=== PATIENT | female | born 1975 | race Caucasian/White ===

== ENCOUNTER 2018-10-20 22:57 | Emergency (ER) | payer OTHER ==
[2018-10-20 23:11] VITALS: TEMP 97.9
[2018-10-21] MEDS ORDERED: KETOROLAC 30 MG/ML 1 ML VIAL IM STA (00:13)
[2018-10-21] MEDS ORDERED: LIDOCAINE 1% INJ 10MG/ML (20 ML MDV) SQ ONE (00:13)
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
--- NOTE | 2018-10-21 00:57 | CT ---
EXAMINATION TYPE: CT brain aurelia wo con DATE OF EXAM: 10/21/2018 COMPARISON: None HISTORY: neck laceration CT DLP: 853.2 mGycm Automated exposure control for dose reduction was used. TECHNIQUE: CT scan of the head and cervical spine are performed without contrast. FINDINGS: Ventricles and sulci appear normal. There is no mass effect nor midline shift. There is n o sign of intracranial hemorrhage. The calvarium is intact. There is mucosal thickening and fluid lev els in the maxillary sinuses and ethmoid sinuses. There is degenerative disc space narrowing at C6-7 with spur formation. Posterior elements are intact . There is spurring of the endplates. The skull base is intact. IMPRESSION: Negative CT scan of the brain. Ethmoid and maxillary sinusitis. Spondylosis at C6-7. No fracture seen.
--- NOTE | 2018-10-21 00:59 | XR ---
EXAMINATION TYPE: XR hand complete RT DATE OF EXAM: 10/21/2018 COMPARISON: NONE HISTORY: Little finger pain from punching a wall TECHNIQUE: 3 views FINDINGS: Metacarpals appear intact. I see no fracture nor dislocation. The little finger appears int act. Carpal bones are intact. IMPRESSION: Negative right hand exam.
[2018-10-21] MEDS ORDERED: AMOXIC-POT CLAV 875MG STARTER 2 EACH TABLET PO STA (01:39)
[2018-10-21 01:53] VITALS: BP 103/67; PULSE 86; RESP 16
== END 2018-10-21 01:52 | disposition home or self-care (01) ==
LOC: EC 22:57
DX: S61.216A Laceration without foreign body of right little finger without damage to nail, initial encounter (principal); S00.83XA Contusion of other part of head, initial encounter; F10.129 Alcohol abuse with intoxication, unspecified; S00.03XA Contusion of scalp, initial encounter; J32.0 Chronic maxillary sinusitis; J32.2 Chronic ethmoidal sinusitis; S10.91XA Abrasion of unspecified part of neck, initial encounter; M47.812 Spondylosis without myelopathy or radiculopathy, cervical region; W22.01XA Walked into wall, initial encounter; Y93.89 Activity, other specified; W22.8XXA Striking against or struck by other objects, initial encounter; W17.89XA Other fall from one level to another, initial encounter; Y92.096 Garden or yard of other non-institutional residence as the place of occurrence of the external cause
CPT/HCPCS: 73130; 72125; 70450; 99283; 96372; J2001; J1885

== ENCOUNTER 2022-07-07 16:15 | Emergency (ER) | payer BC ==
[2022-07-07 16:21] VITALS: BP 117/84; PULSE 105; RESP 18; TEMP 98.2
[2022-07-07] MEDS ORDERED: SODIUM CHLORIDE 0.9% 1,000 ML IV STA (16:21)
[2022-07-07] MEDS ORDERED: PANTOPRAZOLE 40 MG/10 ML VIAL IVP STA (16:22)
--- NOTE | 2022-07-07 16:32 | ED ---
GI Bleed HPI - General Chief complaint: GI Bleed Stated complaint: possible GI bleed Time Seen by Provider: 07/07/22 16:16 Source: patient, RN notes reviewed Mode of arrival: EMS Limitations: no limitations - History of Present Illness Initial comments: This is a pleasant 47-year-old female with a history of gastric ulcer which was diagnosed about 20 years ago. Patient also has an umbilical hernia. Patient has a history of high cholesterol and hypertension as well. However none of these disorders are treated as the patient has not seen a physician about 15 years. Patient presents today after having some dark stools yesterday and then having some coffee-ground emesis a few times since yesterday. Patient vomited today and is having some discomfort in her epigastrium. Patient also became lightheaded and nearly passed out after vomiting. Patient denying any chest pain or shortness of breath. Patient denies any fever or chills. Only complaining of minimal pain in the epigastric area at this time. Patient does admit to frequently taking NSAIDs [id number] No headache, no fever or chills, no changes in vision or hearing, no sore throat or difficulty with speech, no neck pain, no chest pain or shortness of breath, no changes in urination or bowel movements, no numbness or tingling, no extremity pain, no skin rashes or lesions. Past medical, surgical, social, and family history reviewed. MD complaint: coffee ground emesis, melena - Related Data Previous Rx's Medication Instructions Recorded Magnesium Oxide [Mag-Ox] 400 mg PO DAILY #30 tablet 07/07/22 Omeprazole [PriLOSEC] 20 mg PO DAILY #30 cap 07/07/22 Allergies Allergy/AdvReac Type Severity Reaction Status Date / Time No Known Allergies Allergy Verified 07/07/22 17:19 Review of Systems ROS Statement: Those systems with pertinent positive or pertinent negative responses have been documented in the HPI. ROS Other: All systems not noted in ROS Statement are negative. Past Medical History Past Medical History: Hyperlipidemia, Hypertension History of Any Multi-Drug Resistant Organisms: None Reported Past Surgical History: No Surgical Hx Reported Past Psychological History: ADD/ADHD, Anxiety Smoking Status: Current every day smoker Past Alcohol Use History: Occasional Past Drug Use History: Marijuana General Exam - General Exam Comments Initial Comments: Auto signs reviewed, patient does not appear to be ill or toxic. Appears to be adequately perfused. Capillary refill is normal. No mottling. Limitations: no limitations General appearance: alert, in no apparent distress Head exam: Present: atraumatic, normocephalic, normal inspection Eye exam: Present: normal appearance, PERRL, EOMI. Absent: scleral icterus, conjunctival injection, periorbital swelling ENT exam: Present: normal exam, mucous membranes moist, normal external ear exam. Absent: mucous membranes dry Neck exam: Present: normal inspection, full ROM. Absent: tenderness, me ningismus, lymphadenopathy Respiratory exam: Present: normal lung sounds bilaterally. Absent: respiratory distress, wheezes, rales, rhonchi, stridor, chest wall tenderness, accessory muscle use Cardiovascular Exam: Present: regular rate, normal rhythm, normal heart sounds. Absent: systolic murmur, diastolic murmur, rubs, gallop, clicks GI/Abdominal exam: Present: soft, tenderness (Minimal tenderness in the epigastrium and left upper quadrant area.), normal bowel sounds. Absent: distended, guarding, rebound, rigid Extremities exam: Present: normal inspection, full ROM, normal capillary refill. Absent: tenderness, pedal edema, joint swelling, calf tenderness Back exam: Present: normal inspection Neurological exam: Present: alert, oriented X3, CN II-XII intact Psychiatric exam: Present: normal affect, normal mood Skin exam: Present: warm, dry, intact, normal color. Absent: rash Course Vital Signs 07/07/22 16:16 Temperature 98.2 F Pulse Rate 105 H Respiratory 18 Rate Blood Pressure 117/84 O2 Sat by Pulse 95 Oximetry - Reevaluation(s) Reevaluation #1: 07/07/22 19:51 Medical record is reviewed Symptoms are improved here in the emergency department Patient is informed of results and questions answered Patient in no distress At this point we are still waiting on the CMP. Medical Decision Making - Medical Decision Making Given the patient's present symptomology. Peptic ulcer disease is probable. Other etiologies such as pancreatitis, inflammatory versus infectious etiologies are less likely. Does not appear to be consistent with cardiopulmonary disease. However the patient did have a near syncopal episode after vomiting. Will order an EKG and a troponin. Plan for reevaluation. Protonix ordered. Hemoccult sent. Due to the laboratory taking so long, patient wanted to leave before the CMP was obtained. I did discuss risks for his benefits with the patient. Patient is of sound mind, is alert and oriented 4 and able make her own medical decisions. Given the patient's well appearance and think this is low risk. I will monitor the results and call the patient if necessary. The case was discussed in detail with ED attending physician. Presentation, findings, treatment plan discussed in detail. Solo Musician Dr. Rizo Patient call in the form about her abnormal liver function tests. Patient told to follow up with gastroenterology without fail. Patient was told to avoid acetaminophen. Patient voiced understanding. - Lab Data Result diagrams: 07/07/22 17:13 07/07/22 17:13 Lab Results 07/07/22 07/07/22 07/07/22 Range/Units 16:27 17:13 17:13 WBC 9.8 (3.8-10.6) k/uL RBC 4.34 (3.80-5.40) m/uL Hgb 13.1 (11.4-16.0) gm/dL Hct 40.7 (34.0-46.0) % MCV 93.7 (80.0-100.0) fL MCH 30.1 (25.0-35.0) pg MCHC 32.2 (31.0-37.0) g/dL RDW 15.2 (11.5-15.5) % Plt Count 313 (150-450) k/uL MPV 8.2 PT 11.0 (9.0-12.0) sec INR 1.0 (<1.2) APTT 22.3 (22.0-30.0) sec Sodium (137-145) mmol/L Potassium (3.5-5.1) mmol/L Chloride (98-107) mmol/L Carbon Dioxide (22-30) mmol/L Anion Gap mmol/L BUN (7-17) mg/dL Creatinine (0.52-1.04) mg/dL Est GFR (CKD-EPI)AfAm (>60 ml/min/1.73 sqM) Est GFR (CKD-EPI)NonAf (>60 ml/min/1.73 sqM) Glucose (74-99) mg/dL Calcium (8.4-10.2) mg/dL Magnesium (1.6-2.3) mg/dL Total Bilirubin (0.2-1.3) mg/dL AST (14-36) U/L ALT (4-34) U/L Alkaline Phosphatase (38-126) U/L Troponin I (0.000-0.034) ng/mL Total Protein (6.3-8.2) g/dL Albumin (3.5-5.0) g/dL Lipase (23-300) U/L Urine HCG, Qual (Not Detectd) Stool Occult Blood Negative (Negative) Blood Type Blood Type Recheck Bld Type Recheck Status Antibody Screen Spec Expiration Date 07/07/22 07/07/22 07/07/22 Range/Units 17:13 17:13 17:13 WBC (3.8-10.6) k/uL RBC (3.80-5.40) m/uL Hgb (11.4-16.0) gm/dL Hct (34.0-46.0) % MCV (80.0-100.0) fL MCH (25.0-35.0) pg MCHC (31.0-37.0) g/dL RDW (11.5-15.5) % Plt Count (150-450) k/uL MPV PT (9.0-12.0) sec INR (<1.2) APTT (22.0-30.0) sec Sodium 144 (137-145) mmol/L Potassium 4.3 (3.5-5.1) mmol/L Chloride 112 H (98-107) mmol/L Carbon Dioxide 25 (22-30) mmol/L Anion Gap 7 mmol/L BUN 13 (7-17) mg/dL Creatinine 0.57 (0.52-1.04) mg/dL Est GFR (CKD-EPI)AfAm >90 (>60 ml/min/1.73 sqM) Est GFR (CKD-EPI)NonAf >90 (>60 ml/min/1.73 sqM) Glucose 81 (74-99) mg/dL Calcium 8.1 L (8.4-10.2) mg/dL Magnesium (1.6-2.3) mg/dL Total Bilirubin 0.3 (0.2-1.3) mg/dL AST 188 H (14-36) U/L ALT 281 H (4-34) U/L Alkaline Phosphatase 110 (38-126) U/L Troponin I <0.012 (0.000-0.034) ng/mL Total Protein 6.8 (6.3-8.2) g/dL Albumin 3.4 L (3.5-5.0) g/dL Lipase 154 (23-300) U/L Urine HCG, Qual (Not Detectd) Stool Occult Blood (Negative) Blood Type B Positive Blood Type Recheck B Pos Bld Type Recheck Status No Antibody Screen NEGATIVE Spec Expiration Date 07/10/2022 - 231207/07/22 07/07/22 Range/Units 17:13 17:39 WBC (3.8-10.6) k/uL RBC (3.80-5.40) m/uL Hgb (11.4-16.0) gm/dL Hct (34.0-46.0) % MCV (80.0-100.0) fL MCH (25.0-35.0) pg MCHC (31.0-37.0) g/dL RDW (11.5-15.5) % Plt Count (150-450) k/uL MPV PT (9.0-12.0) sec INR (<1.2) APTT (22.0-30.0) sec Sodium (137-145) mmol/L Potassium (3.5-5.1) mmol/L Chloride (98-107) mmol/L Carbon Dioxide (22-30) mmol/L Anion Gap mmol/L BUN (7-17) mg/dL Creatinine (0.52-1.04) mg/dL Est GFR (CKD-EPI)AfAm (>60 ml/min/1.73 sqM) Est GFR (CKD-EPI)NonAf (>60 ml/min/1.73 sqM) Glucose (74-99) mg/dL Calcium (8.4-10.2) mg/dL Magnesium 2.0 (1.6-2.3) mg/dL Total Bilirubin (0.2-1.3) mg/dL AST (14-36) U/L ALT (4-34) U/L Alkaline Phosphatase (38-126) U/L Troponin I (0.000-0.034) ng/mL Total Protein (6.3-8.2) g/dL Albumin (3.5-5.0) g/dL Lipase (23-300) U/L Urine HCG, Qual Not Detected (Not Detectd) Stool Occult Blood (Negative) Blood Type Blood Type Recheck Bld Type Recheck Status Antibody Screen Spec Expiration Date - EKG Data EKG Comments: EKG done at 1650 water read by the ED attending physician reveals a rate of 78. Normal intervals aside from the QTC which is [address] or T-wave changes. Normal axis. Normal QRS morphology. Disposition Clinical Impression: Acute gastritis with bleeding Disposition: HOME SELF-CARE Condition: Good Instructions (If sedation given, give patient instructions): Gastritis (ED) Additional Instructions: Follow-up with your regular physician as directed. Return to the ER immediately if any symptoms worsen, new symptoms arise, or any other problems develop. Refrain from using any [id number] nonsteroidal anti-inflammatory medication such as Motrin, ibuprofen, Aleve, naproxen. You can use [id number]-[id number] Tylenol as needed for pain control. Make a follow-up appointment with the flight data technician as discussed Prescriptions: Magnesium Oxide [Mag-Ox] 400 mg PO DAILY #30 tablet Omeprazole [PriLOSEC] 20 mg PO DAILY #30 cap Is patient prescribed a controlled substance at d/c from ED?: No Referrals: Joanna Forte MD [STAFF PHYSICIAN] - 07/12/22
[2022-07-07] MEDS ORDERED: ONDANSETRON 4 MG/2 ML VIAL IVP STA (17:25)
[2022-07-07] MEDS ORDERED: MORPHINE SULFATE 4 MG/ML SYRINGE IV STA (17:25)
[2022-07-07] MEDS ORDERED: MAGNESIUM SULFATE-D5W PMX 1 GM in DEXTROSE/WATER 1 100ML.BAG IVPB ONE (17:30)
[2022-07-07] MEDS ORDERED: HYDROmorphone 1 MG/ML 1 ML SYRINGE IVP STA (18:22)
[2022-07-07 18:31] LABS: HCT 40.7 % (34.0-46.0); HGB 13.1 gm/dL (11.4-16.0); MCH 30.1 pg (25.0-35.0); MCHC 32.2 g/dL (31.0-37.0); MCV 93.7 fL (80.0-100.0); Mean Platelet Volume 8.2; Platelet Count 313 k/uL (150-450); RBC 4.34 m/uL (3.80-5.40); RDW 15.2 % (11.5-15.5); WBC 9.8 k/uL (3.8-10.6)
[2022-07-07 18:33] LABS: Partial Thromboplastin Time 22.3 sec (22.0-30.0)
--- NOTE | 2022-07-07 18:44 | XR ---
EXAMINATION TYPE: XR abdomen acute w cxr DATE OF EXAM: 07/07/2022 COMPARISON: NONE HISTORY: Epigastric pain TECHNIQUE: 4 views FINDINGS: Heart and mediastinum are normal. Lungs are clear. Diaphragm is normal. Bony thorax is inta ct. There is normal bowel gas pattern. No sign of intestinal obstruction or pneumoperitoneum. Fecal patte rn is normal. IMPRESSION: Normal chest. Nonacute abdomen.
[2022-07-07 20:04] LABS: ALT 281 U/L (4-34); African American GFR (CKD) >90 (>60 ml/min/1.73 sqM); Albumin 3.4 g/dL (3.5-5.0); Anion Gap 7 mmol/L; Blood Urea Nitrogen 13 mg/dL (7-17); Calcium 8.1 mg/dL (8.4-10.2); Carbon Dioxide 25 mmol/L (22-30); Chloride 112 mmol/L (98-107); Glucose 81 mg/dL (74-99); Lipase 154 U/L (23-300); Non-African American GFR(CKD) >90 (>60 ml/min/1.73 sqM); Sodium 144 mmol/L (137-145); Total Bilirubin 0.3 mg/dL (0.2-1.3); Total Protein 6.8 g/dL (6.3-8.2)
[2022-07-07 20:25] LABS: AST 188 U/L (14-36); Alkaline Phosphatase 110 U/L (38-126); Potassium 4.3 mmol/L (3.5-5.1)
[2022-07-07 21:51] LABS: Band Neutrophils % 2 %; Lymphocytes # (M) 5.59 k/uL (1.0-4.8); Neutrophils % (M) 37 %; Nucleated Red Blood Cells 0 /100 WBC (0-0); Total Cells Counted 100
== END 2022-07-07 20:28 | disposition home or self-care (01) ==
LOC: EC 16:15
DX: K29.01 Acute gastritis with bleeding (principal); I10 Essential (primary) hypertension; E78.5 Hyperlipidemia, unspecified; F17.200 Nicotine dependence, unspecified, uncomplicated
CPT/HCPCS: 36415; 93005; 86900; 86901; 80053; 83690; 83735; 84484; 85025; 85610; 85730; 86850; 82272; 81025; 74022; 99284; 96365; 96375; 96361; J2270; J2405; J1170; J3475; C9113

== ENCOUNTER 2022-09-27 22:17 | Emergency (ER) | payer OTHER ==
[2022-09-27 22:31] VITALS: BP 110/78; PULSE 117; RESP 18; TEMP 97.9
[2022-09-27] MEDS ORDERED: ACETAMINOPHEN TAB 500 MG TAB PO STA (23:00)
[2022-09-27] MEDS ORDERED: TOPICAL SKIN ADHESIVE 1 EACH AMP TOPICAL ONE (23:01)
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
== END 2022-09-28 00:29 | disposition home or self-care (01) ==
LOC: EC 22:17
DX: S01.112A Laceration without foreign body of left eyelid and periocular area, initial encounter (principal); R55 Syncope and collapse; R51.9 Headache, unspecified; E78.5 Hyperlipidemia, unspecified; I10 Essential (primary) hypertension; F41.9 Anxiety disorder, unspecified; F17.200 Nicotine dependence, unspecified, uncomplicated; F12.90 Cannabis use, unspecified, uncomplicated; Y04.8XXA Assault by other bodily force, initial encounter
CPT/HCPCS: 12011; 70450; 70486; 72125; 99285

== ENCOUNTER 2022-12-10 03:29 | Emergency (ER) | payer OTHER ==
[2022-12-10 03:38] VITALS: RESP 16; TEMP 97.6
[2022-12-10] MEDS ORDERED: KETOROLAC 15 MG/ML 1 ML VIAL IM STA (04:08)
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
--- NOTE | 2022-12-10 05:07 | XR ---
EXAMINATION TYPE: XR hand complete RT DATE OF EXAM: 12/10/2022 COMPARISON: NONE HISTORY: Pain TECHNIQUE: 3 views FINDINGS: Metacarpals are intact. I see no fracture nor dislocation. Joint spaces are normal. There i s soft tissue swelling on the dorsum of the hand. IMPRESSION: Mild soft tissue swelling. No fracture.
--- NOTE | 2022-12-10 05:08 | XR ---
EXAMINATION TYPE: XR chest 2V DATE OF EXAM: 12/10/2022 COMPARISON: 07/07/2022 HISTORY: Chest pain TECHNIQUE: 2 views FINDINGS: Heart is normal. Lungs are clear. Diaphragm is normal. Bony thorax is intact IMPRESSION: Normal chest. No change.
[2022-12-10 05:30] VITALS: BP 112/68; PULSE 88
== END 2022-12-10 05:35 | disposition home or self-care (01) ==
LOC: EC 03:29
DX: S29.011A Strain of muscle and tendon of front wall of thorax, initial encounter (principal); I10 Essential (primary) hypertension; F90.9 Attention-deficit hyperactivity disorder, unspecified type; F41.9 Anxiety disorder, unspecified; F17.200 Nicotine dependence, unspecified, uncomplicated; F12.90 Cannabis use, unspecified, uncomplicated; W22.8XXA Striking against or struck by other objects, initial encounter
CPT/HCPCS: 99283; 73130; 71046; 96372; J1885

== ENCOUNTER 2023-09-25 13:01 | Inpatient (IN) | payer OTHER ==
[2023-09-25] MEDS ORDERED: HYDROmorphone 0.5 MG/0.5 ML SYRINGE IVP STA (14:56)
[2023-09-25] MEDS ORDERED: VANCOMYCIN IV PER PHARMACY 1 EACH MISC MISCELLANE PRN (14:56)
[2023-09-25] MEDS ORDERED: KETOROLAC 15 MG/ML 1 ML VIAL IVP STA (14:56)
[2023-09-25] MEDS ORDERED: CEFEPIME 2 GM in SODIUM CHLORIDE 0.9% 100 ML IVPB STA (14:58)
--- NOTE | 2023-09-25 15:20 | ED ---
Skin/Abscess/FB HPI - General Chief complaint: Skin/Abscess/Foreign Body Stated complaint: abcess right armpit Time Seen by Provider: 09/25/23 14:18 Source: patient, RN notes reviewed Mode of arrival: ambulatory Limitations: no limitations - History of Present Illness Initial comments: This is a 48-year-old female who presents to the emergency department for an abscess to the right axilla. She was recently diagnosed with HS and 2 weeks ago developed an abscess in the right axilla. She saw her primary care provider and was started on doxycycline about 2 weeks ago. She was referred to general surgery given the severity of this, and she did follow up with Dr. Berg, general surgery, yesterday, who advised she come to the emergency department for failed outpatient management. States that she had family matters yesterday and was unable to come until today. Reports having green drainage coming from the wound as well as severe tracking. States that the wound has continued to become deeper and deeper since it has started. The pain has also been very difficult to manage at home. She has been taking Mobic with little to no relief. MD complaint: abscess/boil Onset/Timin -: week(s) - Related Data Home Medications Medication Instructions Recorded Confirmed Atomoxetine HCl [Strattera] 60 mg PO DAILY 09/25/23 09/25/23 Doxycycline Monohydrate 100 mg PO BID 09/25/23 09/25/23 Meloxicam [Mobic] 15 mg PO DAILY 09/25/23 09/25/23 Naltrexone Microspheres [Vivitrol] 380 mg IM Q28D 09/25/23 09/25/23 Omeprazole 40 mg PO DAILY 09/25/23 09/25/23 Sertraline [Zoloft] 200 mg PO DAILY 09/25/23 09/25/23 hydrOXYzine HCL [Atarax] 25 mg PO TID 09/25/23 09/25/23 traZODone HCL [Desyrel] 100 mg PO HS 09/25/23 09/25/23 Allergies Allergy/AdvReac Type Severity Reaction Status Date / Time No Known Allergies Allergy Verified 09/25/23 17:37 Review of Systems ROS Statement: Those systems with pertinent positive or pertinent negative responses have been documented in the HPI. ROS Other: All systems not noted in ROS Statement are negative. Past Medical History Past Medical History: Hyperlipidemia, Hypertension History of Any Multi-Drug Resistant Organisms: None Reported Past Surgical History: No Surgical Hx Reported Past Psychological History: ADD/ADHD, Anxiety, Depression Smoking Status: Current every day smoker Past Alcohol Use History: Occasional Past Drug Use History: Marijuana General Exam Limitations: no limitations General appearance: alert, in no apparent distress Head exam: Present: atraumatic Respiratory exam: Present: normal lung sounds bilaterally. Absent: respiratory distress, wheezes, rales, rhonchi, stridor Cardiovascular Exam: Present: regular rate, normal rhythm, normal heart sounds. Absent: systolic murmur, diastolic murmur, rubs, gallop, clicks Neurological exam: Present: alert, oriented X3, CN II-XII intact Psychiatric exam: Present: normal affect, normal mood Skin exam: Present: other (Large open wound to the right axilla with a fair amount of depth and obvious tracking. There is surrounding erythema and tenderness as well.) Course Vital Signs 09/25/23 09/25/23 13:10 17:31 Temperature 98.2 F 98.9 F Pulse Rate 104 H 86 Respiratory 18 16 Rate Blood Pressure 133/79 152/96 O2 Sat by Pulse 98 100 Oximetry Medical Decision Making - Medical Decision Making This is a 48-year-old female who presents to the emergency department for an abscess to her right axilla. Was pt. sent in by a medical professional or institution? @ -Yes, Dr. Berg Did you speak to anyone other than the patient for history? @ -No Did you review nursing and triage notes? @ -Yes, and I agree, it is accurate with regards to the patient's symptoms. Were old charts reviewed? @ -No Differential Diagnosis? @ -Differential Abscess: Abscess, cellulitis, lipoma, lymphadenopathy, this is not meant to be an all- inclusive list. EKG interpreted by me (3pts min.)? @ -Not obtained X-rays interpreted by me (1pt min.)? @ -Not obtained CT interpreted by me (1pt min.)? @ -Not obtained U/S interpreted by me (1pt. min.)? @ -Not obtained What testing was considered but not performed? (CT, X-rays, U/S, labs)? Why? @ -None What meds were considered but not given? Why? @ -None Did you discuss the management of the patient with other professionals? @ -Yes, Dr. Berg who advised admission to medicine with IV antibiotics and infectious disease consult. Dr. Bro accepts the patient for admission to medicine. Did you reconcile home meds? @ -No Was smoking cessation discussed for >3mins.? @ -No Was critical care preformed (if so, how long)? @ -No Were there social determinants of health that impacted care today? How? (Homelessness, low income, unemployed, alcoholism, drug addiction, transportation, low edu. Level, literacy, decrease access to med. care, senior care, rehab)? @ -No Was there de-escalation of care discussed even if they declined? (Discuss DNR or withdrawal of care, Hospice)? @ -No What co-morbidities impacted this encounter? (DM, HTN, Smoking, COPD, CAD, Cancer, CVA, Hep., AIDS, mental health diagnosis, sleep apnea, morbid obesity)? @ -HS Was patient admitted / discharged? @ -Admitted. Lab work obtained revealing leukocytosis with a white blood cell count of 13.9. CRP mildly elevated at 1.3. Lab work was otherwise fairly unremarkable. Physical examination did reveal a fairly deep abscess with tracking. Patient was also severely uncomfortable. Case discussed with Dr. Berg, who advised that the patient should be admitted for failed outpatient management with ID consult. She advised IV antibiotics with admission to [facility]. Tentative plan is to do a washout tomorrow. Patient admitted to medicine with ID consult. She was started on vancomycin and cefepime. Blood and wound cultures obtained. Undiagnosed new problem with uncertain prognosis? @ -None Drug Therapy requiring intensive monitoring for toxicity (Heparin, Nitro, Insulin, Cardizem)? @ -None Were any procedures done? @ -None Diagnosis/symptom? @ -Abscess right axilla, failed outpatient management Acute, or Chronic, or Acute on Chronic? @ -Acute Uncomplicated (without systemic symptoms) or Complicated (systemic symptoms)? @ -Uncomplicated Side effects of treatment? @ -None Exacerbation, Progression, or Severe Exacerbation] @ -Not applicable Poses a threat to life or bodily function? @ -Yes This case was discussed in detail with the attending ED physician, Dr. Burnett. Presentation, findings, and treatment plan discussed in detail as well. - Lab Data Result diagrams: 09/25/23 15:08 09/25/23 16:36 Lab Results 09/25/23 09/25/23 09/25/23 Range/Units 15:08 15:08 16:36 WBC 13.9 H (3.8-10.6) k/uL RBC 4.43 (3.80-5.40) m/uL Hgb 13.5 (11.4-16.0) gm/dL Hct 40.7 (34.0-46.0) % MCV 91.9 (80.0-100.0) fL MCH 30.5 (25.0-35.0) pg MCHC 33.2 (31.0-37.0) g/dL RDW 13.8 (11.5-15.5) % Plt Count 479 H (150-450) k/uL MPV 8.2 Neutrophils % 58 % Lymphocytes % 34 % Monocytes % 4 % Eosinophils % 2 % Basophils % 0 % Neutrophils # 8.1 H (1.3-7.7) k/uL Lymphocytes # 4.7 (1.0-4.8) k/uL Monocytes # 0.5 (0-1.0) k/uL Eosinophils # 0.3 (0-0.7) k/uL Basophils # 0.1 (0-0.2) k/uL Sodium 137 (137-145) mmol/L Potassium 4.3 (3.5-5.1) mmol/L Chloride 104 (98-107) mmol/L Carbon Dioxide 27 (22-30) mmol/L Anion Gap 6 mmol/L BUN 18 H (7-17) mg/dL Creatinine 0.63 (0.52-1.04) mg/dL Est GFR (CKD-EPI)AfAm >90 (>60 ml/min/1.73 sqM) Est GFR (CKD-EPI)NonAf >90 (>60 ml/min/1.73 sqM) Glucose 105 H (74-99) mg/dL Plasma Lactic Acid Moy 1.2 (0.7-2.0) mmol/L Calcium 8.6 (8.4-10.2) mg/dL Total Bilirubin 0.2 (0.2-1.3) mg/dL AST 25 (14-36) U/L ALT 22 (4-34) U/L Alkaline Phosphatase 107 (38-126) U/L C-Reactive Protein 1.3 H (<1.0) mg/dL Total Protein 6.7 (6.3-8.2) g/dL Albumin 3.3 L (3.5-5.0) g/dL Disposition Clinical Impression: Abscess of right axilla, Failure of outpatient treatment Disposition: ADMITTED IP TO THIS HOSP
[2023-09-25] MEDS ORDERED: VANCOMYCIN 1,500 MG in SODIUM CHLORIDE 0.9% 500 ML 500 ML IVPB ONE (15:30)
[2023-09-25 15:53] LABS: Basophils # (A) 0.1 k/uL (0-0.2); Basophils % (A) 0 %; Eosinophils # (A) 0.3 k/uL (0-0.7); Eosinophils % (A) 2 %; HCT 40.7 % (34.0-46.0); HGB 13.5 gm/dL (11.4-16.0); Lymphocytes # (A) 4.7 k/uL (1.0-4.8); Lymphocytes % (A) 34 %; MCH 30.5 pg (25.0-35.0); MCHC 33.2 g/dL (31.0-37.0); MCV 91.9 fL (80.0-100.0); Mean Platelet Volume 8.2; Monocytes # (A) 0.5 k/uL (0-1.0); Monocytes % (A) 4 %; Neutrophils # (A) 8.1 k/uL (1.3-7.7); Neutrophils % (A) 58 %; Platelet Count 479 k/uL (150-450); RBC 4.43 m/uL (3.80-5.40); RDW 13.8 % (11.5-15.5); WBC 13.9 k/uL (3.8-10.6)
[2023-09-25] MEDS ORDERED: SODIUM CHLORIDE 0.9% 1,000 ML IV STA (15:57)
[2023-09-25] MEDS ORDERED: SODIUM CHLORIDE 0.9% 500 ML 500 ML IV STA (15:57)
[2023-09-25] MEDS ORDERED: SODIUM CHLORIDE 0.9% 2,000 ML IV STA (15:57)
[2023-09-25 17:00] LABS: ALT 22 U/L (4-34); AST 25 U/L (14-36); African American GFR (CKD) >90 (>60 ml/min/1.73 sqM); Albumin 3.3 g/dL (3.5-5.0); Alkaline Phosphatase 107 U/L (38-126); Anion Gap 6 mmol/L; Blood Urea Nitrogen 18 mg/dL (7-17); C Reactive Protein 1.3 mg/dL (<1.0); Calcium 8.6 mg/dL (8.4-10.2); Carbon Dioxide 27 mmol/L (22-30); Chloride 104 mmol/L (98-107); Glucose 105 mg/dL (74-99); Non-African American GFR(CKD) >90 (>60 ml/min/1.73 sqM); Potassium 4.3 mmol/L (3.5-5.1); Sodium 137 mmol/L (137-145); Total Bilirubin 0.2 mg/dL (0.2-1.3); Total Protein 6.7 g/dL (6.3-8.2)
[2023-09-25] MEDS ORDERED: HYDROcodone/APAP 5-325MG 1 EACH TAB PO PRN (17:33)
[2023-09-25] MEDS ORDERED: MORPHINE SULFATE 4 MG/ML SYRINGE IV PRN (17:33)
[2023-09-25] MEDS ORDERED: NALOXONE 0.4 MG/ML 1 ML VIAL IV PRN (17:33)
--- NOTE | 2023-09-25 18:34 | P.HPIM ---
History of Present Illness H&P Date: 09/25/23 48 year old female with PMH of ADHD, GERD, depression presents to the ED after being sent to by her surgeon Dr. Berg. Patient is recently being treated with oral doxycycline by her PCP for abscess of her right axilla. Wound has been producing drainage since Saturday. Her symptoms have a progressively getting worse which prompted her to get a general surgery referral. She has been urged to come to the ED for IV antibiotics for failed outpatient management of right axilla abscess. She denies any fever or chills. In the ED, she underwent extensive evaluation. Vital significant for tachycardia with heart rate of 104. CBC showed WBC count of 13.9 with platelet count of 479 CMP showed BUN of 18, glucose of 105 and albumin at 3.3. Lactic acid 1.2. CRP 1.3. Patient is admitted for sepsis related to right axilla abscess failed outpatient treatment. Pertinent positives and negatives as discussed in HPI, a complete review of systems was performed and all other systems are negative. General: non toxic, no distress, appears at stated age Derm: warm, dry Head: atraumatic, normocephalic, symmetric Eyes: EOMI, no lid lag, anicteric sclera Cardiovascular: S1S2 tachycardic, no murmur Lungs: Clear to auscultation bilateral, no rhonchi, no rales , no accessory muscle use Ext: no gross muscle atrophy, no edema, no contractures, R axilla deep abscess minimal erythema and drainage with tracts TTP Neuro: no focal neuro deficits Psych: Alert, oriented, appropriate affect Sepsis secondary to right axilla abscess Chronic conditions: ADHD, GERD, depression Based on my assessment of this patient, this patient meets a high complexity level of care. Patient has an acute diagnosis of right axilla abscess causing sepsis which poses a threat to life or bodily function. Sepsis secondary to right axilla abscess: WCx and BCx ordered. Start Vancomycin dosed per pharmacy and Cefepime 2g IV Q8H. Pain control with Morphine 4 mg IV Q4H PRN. Start NS at 130 cc/hr. Telemetry monitoring. ID and surgery consulted. Lovenox SQ for DVT prophylaxis. FULL CODE. I have reviewed the following marketing sales consultant notes: I have reviewed the results of the following tests: As above. I have ordered the following tests: WCx. BCx. CBC. BMP. I have discussed the care of this patient with the following independent historian: I have independently interpreted the following test below: I have discussed the management of this patient with the following physician: Past Medical History Past Medical History: Hyperlipidemia, Hypertension History of Any Multi-Drug Resistant Organisms: None Reported Past Surgical History: No Surgical Hx Reported Past Psychological History: ADD/ADHD, Anxiety, Depression Smoking Status: Current every day smoker Past Alcohol Use History: Occasional Past Drug Use History: Marijuana Medications and Allergies Home Medications Medication Instructions Recorded Confirmed Type Atomoxetine HCl [Strattera] 60 mg PO DAILY 09/25/23 09/25/23 History Doxycycline Monohydrate 100 mg PO BID 09/25/23 09/25/23 History Meloxicam [Mobic] 15 mg PO DAILY 09/25/23 09/25/23 History Naltrexone Microspheres [Vivitrol] 380 mg IM Q28D 09/25/23 09/25/23 History Omeprazole 40 mg PO DAILY 09/25/23 09/25/23 History Sertraline [Zoloft] 200 mg PO DAILY 09/25/23 09/25/23 History hydrOXYzine HCL [Atarax] 25 mg PO TID 09/25/23 09/25/23 History traZODone HCL [Desyrel] 100 mg PO HS 09/25/23 09/25/23 History Allergies Allergy/AdvReac Type Severity Reaction Status Date / Time No Known Allergies Allergy Verified 09/25/23 17:37 Physical Exam Vitals: Vital Signs Temp Pulse Resp BP Pulse Ox 09/25/23 17:31 98.9 F 86 16 152/96 100 09/25/23 13:10 98.2 F 104 H 18 133/79 98 Intake and Output 09/25/23 09/25/23 09/25/23 06:59 14:59 22:59 Other: Weight 76.657 kg Results CBC & Chem 7: 09/25/23 15:08 09/25/23 16:36 Labs: Abnormal Lab Results - Last 24 Hours (Table) 09/25/23 09/25/23 Range/Units 15:08 16:36 WBC 13.9 H (3.8-10.6) k/uL Plt Count 479 H (150-450) k/uL Neutrophils # 8.1 H (1.3-7.7) k/uL BUN 18 H (7-17) mg/dL Glucose 105 H (74-99) mg/dL C-Reactive Protein 1.3 H (<1.0) mg/dL Albumin 3.3 L (3.5-5.0) g/dL
[2023-09-25] MEDS: ENOXAPARIN 40 MG/0.4 ML SYRINGE SQ SCH (18:44)
[2023-09-25 19:49] LABS: Erythrocyte Sedimentation Rate 17 mm/Hr (0-20)
[2023-09-25] MEDS: KETOROLAC 15 MG/ML 1 ML VIAL IVP PRN (21:01)
[2023-09-25] MEDS: ACETAMINOPHEN TAB 325 MG TAB PO PRN (21:02)
[2023-09-25] MEDS ORDERED: diphenhydrAMINE 25 MG CAP PO STA (21:45)
[2023-09-25] MEDS: traZODone HCL 100 MG TAB PO SCH (21:49)
[2023-09-25] MEDS: hydrOXYzine HCL 25 MG TAB PO SCH (22:31)
[2023-09-25] MEDS: CEFEPIME 2 GM in SODIUM CHLORIDE 0.9% 100 ML IVPB SCH (23:26)
[2023-09-26] MEDS: KETOROLAC 15 MG/ML 1 ML VIAL IVP PRN ×4 (02:35→20:23)
[2023-09-26] MEDS: VANCOMYCIN 1,250 MG in SODIUM CHLORIDE 0.9% 250 ML IVPB SCH ×3 (02:35→20:47)
[2023-09-26] MEDS: ACETAMINOPHEN TAB 325 MG TAB PO PRN ×2 (02:39→16:59)
[2023-09-26] MEDS: ENOXAPARIN 40 MG/0.4 ML SYRINGE SQ SCH (08:42)
[2023-09-26 08:48] LABS: African American GFR (CKD) >90 (>60 ml/min/1.73 sqM); Anion Gap 6 mmol/L; Blood Urea Nitrogen 14 mg/dL (7-17); Calcium 8.7 mg/dL (8.4-10.2); Carbon Dioxide 25 mmol/L (22-30); Chloride 105 mmol/L (98-107); Glucose 79 mg/dL (74-99); Non-African American GFR(CKD) >90 (>60 ml/min/1.73 sqM); Potassium 5.1 mmol/L (3.5-5.1); Sodium 136 mmol/L (137-145)
[2023-09-26] MEDS: SERTRALINE 100 MG TAB PO SCH (08:52)
[2023-09-26] MEDS: hydrOXYzine HCL 25 MG TAB PO SCH ×3 (08:53→22:26)
[2023-09-26] MEDS: PANTOPRAZOLE 40 MG TABLET PO SCH (08:53)
[2023-09-26] MEDS: ONDANSETRON 4 MG/2 ML VIAL IVP PRN (08:55)
[2023-09-26] MEDS: CEFEPIME 2 GM in SODIUM CHLORIDE 0.9% 100 ML IVPB SCH ×2 (08:57→16:55)
[2023-09-26] MEDS: NON FORMULARY DRUG (Atomoxetine Hcl [Strattera] 60 MG Capsule) PO SCH (10:06)
--- NOTE | 2023-09-26 11:21 | P.GSCN ---
History of Present Illness Consult date: 09/26/23 History of present illness: CHIEF COMPLAINT: Right axilla abscess HISTORY OF PRESENT ILLNESS: This is a 48-year-old female with history of hydradenitis suppurativa. Patient is been dealing with a right axilla abscess for about 2 weeks. Initially it started as a golf ball size and continued to grow to a softball size. It did spontaneously start to drain. Patient reports pain and swelling in the area. The area is now an open wound. Patient denies any fever or chills or sweats. Denies any history of diabetes or MRSA. She reports having prior exalt abscesses drained in the ER. Patient was started on antibiotics outpatient by her PCP with no improvement. Patient is smoker. PAST MEDICAL HISTORY: See below PAST SURGICAL HISTORY: See below MEDICATIONS: See below ALLERGIES: See below SOCIAL HISTORY: No illicit drug use. REVIEW OF SYSTEMS: CONSTITUTIONAL: Denies fever or chills. HEENT: Denies blurred vision, vision changes, or eye pain. Denies hemoptysis CARDIOVASCULAR: Denies chest pain or pressure. RESPIRATORY: No shortness of breath. GASTROINTESTINAL: See HPI for pertinent findings HEMATOLOGIC: Denies bleeding disorders. GENITOURINARY: Denies any blood in urine or increased urinary frequency. SKIN: Denies pruitis. Denies rash. PHYSICAL EXAM: VITAL SIGNS: Reviewed GENERAL: Well-developed in no acute distress. ABDOMEN: Soft. Nondistended. Nontender NEUROLOGIC: Alert and oriented. Cranial nerves II through XII grossly intact. Extremities: Right axilla with large open wound. Area is pink. No active drainage. Tender with palpation around the edges of the wound. Above the wound small swollen area are noted. LABORATORY DATA: WBC 13.9 Hgb 13.5 platelets 479 Sodium 136 potassium 5.1 creatinine 0.55 Glucose 79 IMAGING: ASSESSMENT: 1. Right axilla ulcer and failed outpatient management 2. History of hidradenitis suppurativa PLAN: -Patient scheduled for debridement of right axillary ulcer -Keep patient nothing by mouth -Continue IV antibiotics -Agree with infectious disease consult -Continue IV fluids -Continue pain management Physician Floor Tech note has been reviewed by physician. Signing provider agrees with the documented findings, assessment, and plan of care. 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, gets vivirtral injections Past Drug Use History: Marijuana Medications and Allergies Home Medications Medication Instructions Recorded Confirmed Type Atomoxetine HCl [Strattera] 60 mg PO DAILY 09/25/23 09/25/23 History Doxycycline Monohydrate 100 mg PO BID 09/25/23 09/25/23 History Meloxicam [Mobic] 15 mg PO DAILY 09/25/23 09/25/23 History Naltrexone Microspheres [Vivitrol] 380 mg IM Q28D 09/25/23 09/25/23 History Omeprazole 40 mg PO DAILY 09/25/23 09/25/23 History Sertraline [Zoloft] 200 mg PO DAILY 09/25/23 09/25/23 History hydrOXYzine HCL [Atarax] 25 mg PO TID 09/25/23 09/25/23 History traZODone HCL [Desyrel] 100 mg PO HS 09/25/23 09/25/23 History Allergies Allergy/AdvReac Type Severity Reaction Status Date / Time No Known Allergies Allergy Verified 09/25/23 17:37 Surgical - Exam Vital Signs Temp Pulse Resp BP Pulse Ox 98.2 F 104 H 18 133/79 98 09/25/23 13:10 09/25/23 13:10 09/25/23 13:10 09/25/23 13:10 09/25/23 13:10 Results - Labs 09/25/23 15:08 09/26/23 06:56 Abnormal Lab Results - Last 24 Hours (Table) 09/25/23 09/25/23 09/26/23 Range/Units 15:08 16:36 06:56 WBC 13.9 H (3.8-10.6) k/uL Plt Count 479 H (150-450) k/uL Neutrophils # 8.1 H (1.3-7.7) k/uL Sodium 136 L (137-145) mmol/L BUN 18 H (7-17) mg/dL Glucose 105 H (74-99) mg/dL C-Reactive Protein 1.3 H (<1.0) mg/dL Albumin 3.3 L (3.5-5.0) g/dL Microbiology - Last 24 Hours (Table) 09/25/23 15:08 Gram Stain - Preliminary Axilla - Right Diabetes panel 09/25/23 09/26/23 Range/Units 16:36 06:56 Sodium 137 136 L (137-145) mmol/L Potassium 4.3 5.1 (3.5-5.1) mmol/L Chloride 104 105 (98-107) mmol/L Carbon Dioxide 27 25 (22-30) mmol/L BUN 18 H 14 (7-17) mg/dL Creatinine 0.63 0.55 (0.52-1.04) mg/dL Glucose 105 H 79 (74-99) mg/dL Calcium 8.6 8.7 (8.4-10.2) mg/dL AST 25 (14-36) U/L ALT 22 (4-34) U/L Alkaline Phosphatase 107 (38-126) U/L Total Protein 6.7 (6.3-8.2) g/dL Albumin 3.3 L (3.5-5.0) g/dL Calcium panel 09/25/23 09/26/23 Range/Units 16:36 06:56 Calcium 8.6 8.7 (8.4-10.2) mg/dL Albumin 3.3 L (3.5-5.0) g/dL Pituitary panel 09/25/23 09/26/23 Range/Units 16:36 06:56 Sodium 137 136 L (137-145) mmol/L Potassium 4.3 5.1 (3.5-5.1) mmol/L Chloride 104 105 (98-107) mmol/L Carbon Dioxide 27 25 (22-30) mmol/L BUN 18 H 14 (7-17) mg/dL Creatinine 0.63 0.55 (0.52-1.04) mg/dL Glucose 105 H 79 (74-99) mg/dL Calcium 8.6 8.7 (8.4-10.2) mg/dL Adrenal panel 09/25/23 09/26/23 Range/Units 16:36 06:56 Sodium 137 136 L (137-145) mmol/L Potassium 4.3 5.1 (3.5-5.1) mmol/L Chloride 104 105 (98-107) mmol/L Carbon Dioxide 27 25 (22-30) mmol/L BUN 18 H 14 (7-17) mg/dL Creatinine 0.63 0.55 (0.52-1.04) mg/dL Glucose 105 H 79 (74-99) mg/dL Calcium 8.6 8.7 (8.4-10.2) mg/dL Total Bilirubin 0.2 (0.2-1.3) mg/dL AST 25 (14-36) U/L ALT 22 (4-34) U/L Alkaline Phosphatase 107 (38-126) U/L Total Protein 6.7 (6.3-8.2) g/dL Albumin 3.3 L (3.5-5.0) g/dL
[2023-09-26] MEDS: HYDROmorphone 0.5 MG/0.5 ML SYRINGE IVP PRN ×4 (11:57→22:30)
--- NOTE | 2023-09-26 15:51 | P.PN ---
Subjective Progress Note Date: 09/26/23 48 year old female with PMH of ADHD, GERD, depression presents to the ED after being sent to by her surgeon Dr. Berg. Patient is recently being treated with oral doxycycline by her PCP for abscess of her right axilla. Wound has been producing drainage since Saturday. Her symptoms have a progressively getting worse which prompted her to get a general surgery referral. She has been urged to come to the ED for IV antibiotics for failed outpatient management of right axilla abscess. She denies any fever or chills. In the ED, she underwent extensive evaluation. Vital significant for tachycardia with heart rate of 104. CBC showed WBC count of 13.9 with platelet count of 479 CMP showed BUN of 18, glucose of 105 and albumin at 3.3. Lactic acid 1.2. CRP 1.3. Patient is admitted for sepsis related to right axilla abscess failed outpatient treatment. 09/26 Patient was seen and examined. Reports right axilla pain, 5-6/10 with Toradol. Requesting Dilaudid. Plans for debridement later on today with Dr. Berg. BMP shows Na 136. WCx moderate PMN with no organisms. General: non toxic, no distress, appears at stated age Derm: warm, dry Head: atraumatic, normocephalic, symmetric Eyes: EOMI, no lid lag, anicteric sclera Cardiovascular: good distal perfusion in all 4 extremities. Lungs: breathing comfortably, no accessory muscle use Ext: no gross muscle atrophy, no edema, no contractures Neuro: no focal neuro deficits Psych: Alert, oriented, appropriate affect Sepsis secondary to right axilla abscess Chronic conditions: ADHD, GERD, depression Based on my assessment of this patient, this patient meets a high complexity level of care. Patient has an acute diagnosis of right axilla abscess causing sepsis which poses a threat to life or bodily function. Sepsis secondary to right axilla abscess: WCx and BCx ordered. Start Vancomycin dosed per pharmacy and Cefepime 2g IV Q8H. Pain control with Dialudid 0.5 mg IV Q3H PRN. Start NS at 130 cc/hr. Telemetry monitoring. ID and surgery consulted. Lovenox SQ for DVT prophylaxis. FULL CODE. I have reviewed the following networks software consultant notes: Surgery note. I have reviewed the results of the following tests: BMP, WCx. I have ordered the following tests: WCx pending. BCx pending. BMP. I have discussed the care of this patient with the following independent historian: I have independently interpreted the following test below: I have discussed the management of this patient with the following physician: Objective - Vital Signs Vital signs: Vital Signs Temp 98.4 F 09/26/23 14:00 Pulse 83 09/26/23 14:32 Resp 14 09/26/23 14:32 BP 118/69 09/26/23 14:00 Pulse Ox 95 09/26/23 14:00 FiO2 Intake & Output 09/25/23 09/26/23 09/26/23 18:59 06:59 18:59 Weight 76.657 kg 76.657 kg Other: Voiding Method Toilet Toilet # Voids 3 - Labs CBC & Chem 7: 09/25/23 15:08 09/26/23 06:56 Labs: Abnormal Lab Results - Last 24 Hours (Table) 09/25/23 09/25/23 09/26/23 Range/Units 15:08 16:36 06:56 WBC 13.9 H (3.8-10.6) k/uL Plt Count 479 H (150-450) k/uL Neutrophils # 8.1 H (1.3-7.7) k/uL Sodium 136 L (137-145) mmol/L BUN 18 H (7-17) mg/dL Glucose 105 H (74-99) mg/dL C-Reactive Protein 1.3 H (<1.0) mg/dL Albumin 3.3 L (3.5-5.0) g/dL Microbiology - Last 24 Hours (Table) 09/25/23 15:08 Gram Stain - Preliminary Axilla - Right
[2023-09-26] MEDS: traZODone HCL 100 MG TAB PO SCH (20:48)
--- NOTE | 2023-09-26 22:03 | P.CONS ---
History of Present Illness - Reason for Consult Consult date: 09/26/23 Abscess right axilla failed outpatient Requesting physician: Rosanne Morris - Chief Complaint Right axilla pain swelling drainage x few days - History of Present Illness Patient is a 48-year-old female with a past medical history negative for hypertension hyperlipidemia anxiety depression ADHD and did have a history of recurrent skin soft tissue infection especially to the right axillary area patient started having a problem with the right axillary area and this started as a swelling and redness started about 2 weeks ago patient has been treated with doxycycline and the patient was referred to Dr. Berg from general surgery who evaluate the patient and advised to go to the hospital apparently the area of swelling redness continue to get worse and has opened up over the weekend draining of some purulent material patient complaining of pain to the right axillary to be sharp throbbing intensity almost in a trend in severity without any radiation patient denies high-grade fever did have some chills, on presentation to the hospital patient was afebrile and no fever has been ordered subsequently patient did have white count 13.9 with a left shift creatinine was 0.63 CRP was 1.3 local culture has been obtained patient has been started on cefepime and vancomycin infectious disease was consulted for further management of antibiotic therapy Review of Systems Positive point and negatives has been mentioned in the HPI, complete review of systems was performed and all other systems are negative 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, gets vivirtral injections Past Drug Use History: Marijuana Medications and Allergies Home Medications Medication Instructions Recorded Confirmed Type Atomoxetine HCl [Strattera] 60 mg PO DAILY 09/25/23 09/25/23 History Naltrexone Microspheres [Vivitrol] 380 mg IM Q28D 09/25/23 09/25/23 History Omeprazole 40 mg PO DAILY 09/25/23 09/25/23 History Sertraline [Zoloft] 200 mg PO DAILY 09/25/23 09/25/23 History hydrOXYzine HCL [Atarax] 25 mg PO TID 09/25/23 09/25/23 History traZODone HCL [Desyrel] 100 mg PO HS 09/25/23 09/25/23 History Acetaminophen Tab [Tylenol] 650 mg PO Q6HR PRN tab 10/01/23 Rx Cyclobenzaprine [Flexeril] 10 mg PO BID PRN #14 tab 10/01/23 Rx Ibuprofen [Motrin] 800 mg PO TID PRN #90 tab 10/01/23 Rx Vancomycin 1,250 mg IVPB Q8H each 10/01/23 Rx Allergies Allergy/AdvReac Type Severity Reaction Status Date / Time No Known Allergies Allergy Verified 09/25/23 17:37 Physical Exam Vitals: Vital Signs Temp Pulse Pulse Resp BP BP Pulse Ox 09/26/23 08:00 97.8 F 90 16 125/85 96 09/26/23 00:51 98.3 F 78 18 124/73 94 L 09/25/23 21:15 97.5 F L 80 18 146/80 98 09/25/23 21:13 98.6 F 86 18 122/68 98 09/25/23 17:31 98.9 F 86 16 152/96 100 09/25/23 13:10 98.2 F 104 H 18 133/79 98 Intake and Output 09/25/23 09/26/23 09/26/23 22:59 06:59 14:59 Other: Voiding Method Toilet Toilet # Voids 3 Weight 76.657 kg GENERAL DESCRIPTION: Middle-aged female lying in bed, no distress. No tachypnea or accessory muscle of respiration use. HEENT: Shows Pallor , no scleral icterus. Oral mucous membrane is dry. No pharyngeal erythema or thrush NECK: Trachea central, no thyromegaly. LUNGS: Unlabored breathing. Clear to auscultation anteriorly. No wheeze or crackle. HEART: S1, S2, regular rate and rhythm. No loud murmur ABDOMEN: Soft, no tenderness , guarding or rigidity, no organomegaly EXTREMITIES: Right axilla did have an open wound with slough tissue some foul- smelling drainage SKIN: No rash, no masses palpable. NEUROLOGICAL: The patient is awake, alert, oriented x3, mood and affect normal. Results CBC & Chem 7: 10/01/23 07:17 09/30/23 05:01 Labs: Abnormal Lab Results - Last 24 Hours (Table) 09/25/23 09/25/23 09/26/23 Range/Units 15:08 16:36 06:56 WBC 13.9 H (3.8-10.6) k/uL Plt Count 479 H (150-450) k/uL Neutrophils # 8.1 H (1.3-7.7) k/uL Sodium 136 L (137-145) mmol/L BUN 18 H (7-17) mg/dL Glucose 105 H (74-99) mg/dL C-Reactive Protein 1.3 H (<1.0) mg/dL Albumin 3.3 L (3.5-5.0) g/dL Microbiology - Last 24 Hours (Table) 09/25/23 15:08 Gram Stain - Preliminary Axilla - Right Assessment and Plan (1) Abscess of right axilla Current Visit: Yes Status: Acute Code(s): L02.411 - CUTANEOUS ABSCESS OF RIGHT AXILLA SNOMED Code(s): 97794530 (2) Failure of outpatient treatment Current Visit: Yes Status: Acute Code(s): Z78.9 - OTHER SPECIFIED HEALTH STATUS SNOMED Code(s): 469524399 Plan: 1patient with right axillary abscess with spontaneous drainage likely from gr am-positive skin sesar less likely gram-negative infection but that excluded failing outpatient oral doxycycline therapy 2-await surgical debridement and deep culture 3-we will continue with the cefepime and vancomycin pharmacy to dose while watching her kidney function closely We will follow on clinical condition and cultures to further adjust medication if needed Thank you for this consultation we will follow the patient along with you Dictation was produced using [employer] dictation software. please excuse any grammatical, word or spelling errors. Time with Patient: Greater than 30
[2023-09-27] MEDS: CEFEPIME 2 GM in SODIUM CHLORIDE 0.9% 100 ML IVPB SCH ×3 (00:43→17:02)
[2023-09-27] MEDS: ACETAMINOPHEN TAB 325 MG TAB PO PRN ×2 (00:46→13:36)
[2023-09-27] MEDS ORDERED: VANCOMYCIN TROUGH DUE 1 EACH MISC MISCELLANE ONE ×2 (01:00→12:00)
[2023-09-27] MEDS: KETOROLAC 15 MG/ML 1 ML VIAL IVP PRN ×4 (01:44→19:31)
[2023-09-27] MEDS: HYDROmorphone 0.5 MG/0.5 ML SYRINGE IVP PRN ×3 (03:35→10:02)
[2023-09-27] MEDS: VANCOMYCIN 1,250 MG in SODIUM CHLORIDE 0.9% 250 ML IVPB SCH ×3 (05:13→21:13)
[2023-09-27] MEDS: PANTOPRAZOLE 40 MG TABLET PO SCH (06:46)
[2023-09-27] MEDS: SERTRALINE 100 MG TAB PO SCH (07:52)
[2023-09-27] MEDS: NON FORMULARY DRUG (Atomoxetine Hcl [Strattera] 60 MG Capsule) PO SCH (07:52)
[2023-09-27] MEDS: hydrOXYzine HCL 25 MG TAB PO SCH ×3 (07:53→21:17)
[2023-09-27] MEDS: ONDANSETRON 4 MG/2 ML VIAL IVP PRN (08:19)
[2023-09-27 08:48] LABS: Basophils # (A) 0.1 k/uL (0-0.2); Basophils % (A) 1 %; Eosinophils # (A) 0.3 k/uL (0-0.7); Eosinophils % (A) 3 %; HCT 43.1 % (34.0-46.0); HGB 14.2 gm/dL (11.4-16.0); Lymphocytes # (A) 3.3 k/uL (1.0-4.8); Lymphocytes % (A) 35 %; MCH 30.7 pg (25.0-35.0); MCV 93.1 fL (80.0-100.0); Mean Platelet Volume 7.6; Monocytes # (A) 0.6 k/uL (0-1.0); Monocytes % (A) 7 %; Neutrophils # (A) 4.9 k/uL (1.3-7.7); Neutrophils % (A) 53 %; Platelet Count 575 k/uL (150-450); RBC 4.63 m/uL (3.80-5.40); RDW 13.5 % (11.5-15.5); WBC 9.3 k/uL (3.8-10.6)
[2023-09-27] MEDS: ENOXAPARIN 40 MG/0.4 ML SYRINGE SQ SCH (09:01)
[2023-09-27 09:04] LABS: African American GFR (CKD) >90 (>60 ml/min/1.73 sqM); Anion Gap 6 mmol/L; Blood Urea Nitrogen 15 mg/dL (7-17); Calcium 9.7 mg/dL (8.4-10.2); Carbon Dioxide 30 mmol/L (22-30); Chloride 101 mmol/L (98-107); Glucose 93 mg/dL (74-99); Non-African American GFR(CKD) >90 (>60 ml/min/1.73 sqM); Potassium 5.2 mmol/L (3.5-5.1); Sodium 137 mmol/L (137-145)
[2023-09-27] MEDS ORDERED: SODIUM CHLORIDE 0.9% 1,000 ML IV ONE (10:29)
[2023-09-27] MEDS ORDERED: MIDAZOLAM 2 MG/2 ML VIAL ONE (11:17)
[2023-09-27] MEDS ORDERED: fentaNYL (PF) 50 MCG/ML 2 ML AMP ONE (11:17)
[2023-09-27] MEDS ORDERED: HYDROmorphone (PF) 1 MG/ML ONE (11:17)
[2023-09-27] MEDS ORDERED: PROPOFOL 10 MG/ML 20 ML VIAL IV ONE (11:17)
[2023-09-27] MEDS ORDERED: LIDOCAINE 1% INJ 10MG/ML (20 ML MDV) ONE (11:17)
[2023-09-27] MEDS ORDERED: SUCCINYLCHOLINE CHLORIDE 200 MG/10 ML VIAL IV ONE (11:17)
[2023-09-27] MEDS ORDERED: HYDROmorphone 0.5 MG/0.5 ML SYRINGE IVP ONE ×3 (12:25→12:52)
[2023-09-27] MEDS ORDERED: LACTATED RINGERS 1,000 ML IV ONE (12:48)
[2023-09-27] MEDS ORDERED: HYDROmorphone 1 MG/ML 1 ML SYRINGE IVP PRN (12:53)
--- NOTE | 2023-09-27 13:01 | P.OP ---
Date of Procedure: 09/27/23 Description of Procedure: SURGEON: JAIRO BURGOS MD [employer] OPERATOR: None. PREOPERATIVE DIAGNOSES: 1. Right axillary necrotic ulcer 2. Hidradenitis, complicated 3. Failed outpatient antibiotic for hidradenitis 4. Tobacco abuse disorder 5. Generalized anxiety disorder 6. ADD with ADHD POSTOPERATIVE DIAGNOSES: 1. Right axillary necrotic ulcer, 3 x 5 x 5 cm 2. Hidradenitis, complicated 3. Failed outpatient antibiotic for hidradenitis 4. Tobacco abuse disorder 5. Generalized anxiety disorder 6. ADD with ADHD PROCEDURES PERFORMED: 1. Sharp excisional debridement deep subcutaneous right axilla, 3 x 5 x 5 cm 2. Mechanical debridement using Pulsavac lavage 2 L normal saline solution bilat eral buttocks 3. Application of negative wound VAC, 3 x 5 x 5 cm Anesthesia: GETA Estimated Blood Loss (ml): 50 Pathology: Aerobic and anaerobic cultures, axillary mass Condition: stable COMPLICATIONS: None. Operative Findings: 1. Complicated right axillary has 9 disc, 3 cm in length by 5 cm width by 2 cm and 5 cm undermining right chest wall INDICATIONS: The patient is a a 48-year-old female with hidradenitis presents after failed outpatient antibiotic treatment and complex right axillary open wound. Benefits and risks of surgical intervention were described including bleeding, infection, seroma, pain, wound dehiscence and recurrence. Informed consent was obtained. DESCRIPTION OR PROCEDURE: Patient was brought into the operating room. After general induction, The right chest wall and axilla prepped and draped in a standard surgical fashion. Timeout protocol was confirmed with the surgical team regarding the patient's name, procedure to be performed including preoperative medications. DVT prophylaxis was confirmed. The axilla was probed with moderate friable tissue of the right axilla. Sharp excisional debridement using #10 blade was used along this skin and and depth tissue. Measured length 3 cm, width 5 cm, 5 cm undermining towards the right chest wall, depth 2 cm. Aerobic cultures were obtained. Mechanical water jet lavage 2 L normal saline was performed. Hemostasis checked. Next, black foam sponge was cut to the dimensions of the axilla. Adhesive Tegaderm were placed. A disc suction was applied. Negative suction seal was confirmed. The wound VAC was set to -125 mmHg pressure. At the end of the procedure, needle, sponge, and instrument count was verified correct by neurosurgical physician assistant. The patient was transferred into the postanesthesia care unit in stable condition.
--- NOTE | 2023-09-27 14:10 | P.PN ---
Subjective Progress Note Date: 09/27/23 48 year old female with PMH of ADHD, GERD, depression presents to the ED after being sent to by her surgeon Dr. Berg. Patient is recently being treated with oral doxycycline by her PCP for abscess of her right axilla. Wound has been producing drainage since Saturday. Her symptoms have a progressively getting worse which prompted her to get a general surgery referral. She has been urged to come to the ED for IV antibiotics for failed outpatient management of right axilla abscess. She denies any fever or chills. In the ED, she underwent extensive evaluation. Vital significant for tachycardia with heart rate of 104. CBC showed WBC count of 13.9 with platelet count of 479 CMP showed BUN of 18, glucose of 105 and albumin at 3.3. Lactic acid 1.2. CRP 1.3. Patient is admitted for sepsis related to right axilla abscess failed outpatient treatment. 09/26 Patient was seen and examined. Reports right axilla pain, 5-05/11 with Toradol. Requesting Dilaudid. Plans for debridement later on today with Dr. Berg. BMP shows Na 136. WCx moderate PMN with no organisms. 09/27 Patient gone to OR. Debridement delayed yesterday. CBC shows Plt 575. BMP K 5.2. BCx negative so far. ID recommends continuing Abx and report while following cultures. Sepsis secondary to right axilla abscess Hyperkalemia Chronic conditions: ADHD, GERD, depression Based on my assessment of this patient, this patient meets a moderate complexity Patient has an acute diagnosis of right axilla abscess causing sepsis which p oses a threat to life or bodily function. Sepsis secondary to right axilla abscess: WCx and BCx ordered. Continue Vancomycin dosed per pharmacy and Cefepime 2g IV Q8H. Pain control with Dialudid 0.5 mg IV Q3H PRN. DC IVF and encourage hydration by mouth. Telemetry monitoring. ID and surgery consulted. Hyperkalemia: Mildly elevated. Repeat tomorrow. Lovenox SQ for DVT prophylaxis. FULL CODE. I have reviewed the following family consultant notes: ID note. I have reviewed the results of the following tests: BMP, WCx. I have ordered the following tests: WCx pending. BCx pending. BMP. I have discussed the care of this patient with the following independent historian: I have independently interpreted the following test below: I have discussed the management of this patient with the following physician: Objective - Vital Signs Vital signs: Vital Signs Temp 97.6 F 09/27/23 12:13 Pulse 88 09/27/23 12:48 Resp 16 09/27/23 12:48 BP 156/84 09/27/23 12:48 Pulse Ox 99 09/27/23 12:48 FiO2 Intake & Output 09/26/23 09/27/23 09/27/23 18:59 06:59 18:59 Intake Total 975 Output Total 50 Balance 925 Intake: IV 975 Output: Estimated Blood Loss 50 Other: Voiding Method Toilet Toilet # Voids 4 2 - Labs CBC & Chem 7: 09/27/23 08:28 09/27/23 08:28 Labs: Abnormal Lab Results - Last 24 Hours (Table) 09/27/23 09/27/23 Range/Units 08:28 08:28 Plt Count 575 H (150-450) k/uL Potassium 5.2 H (3.5-5.1) mmol/L Microbiology - Last 24 Hours (Table) 09/25/23 15:08 Blood Culture - Preliminary Blood 09/25/23 15:08 Blood Culture - Preliminary Blood
--- NOTE | 2023-09-27 15:02 | P.PN ---
Subjective Progress Note Date: 09/27/23 Principal diagnosis: Right axillary abscess Patient is a 48-year-old female with a past medical history negative for hypertension hyperlipidemia anxiety depression ADHD and did have a history of recurrent skin soft tissue infection especially to the right axillary area, presented to hospital with right ancillary pain swelling redness and abscess with spontaneous drainage. The patient is status post Sharp excisional debridement deep subcutaneous right axilla, 3 x 5 x 5 cm completed on 09/27/2023 On today's evaluation that is 09/27/2023, the patient denies any fever or any chills, the patient is breathing comfortably on room air and no need for supplemental oxygen, the patient denies any chest pain or cough, patient denies any nausea/vomiting or diarrhea and no abdominal pain, patient denies any worsening pain to the right axillary area Patient white count normalized to 9.3, creatinine 0.61, cultures are pending Objective - Vital Signs Vital signs: Vital Signs Temp 98.3 F 09/27/23 07:23 Pulse 77 09/27/23 07:23 Resp 16 09/27/23 07:23 BP 133/81 09/27/23 07:23 Pulse Ox 97 09/27/23 07:23 FiO2 Intake & Output 09/26/23 09/27/23 09/27/23 18:59 06:59 18:59 Other: Voiding Method Toilet # Voids 4 2 - Exam GENERAL DESCRIPTION: Middle-aged female lying in bed in no distress RESPIRATORY SYSTEM: Unlabored breathing , clear to auscultation anteriorly HEART: S1 S2 regular rate and rhythm , ABDOMEN: Soft , no tenderness EXTREMITIES: Right axillary wound is currently dressed in a wound dressing - Labs CBC & Chem 7: 09/27/23 08:28 09/27/23 08:28 Labs: Abnormal Lab Results - Last 24 Hours (Table) 09/27/23 09/27/23 Range/Units 08:28 08:28 Plt Count 575 H (150-450) k/uL Potassium 5.2 H (3.5-5.1) mmol/L Microbiology - Last 24 Hours (Table) 09/25/23 15:08 Blood Culture - Preliminary Blood 09/25/23 15:08 Blood Culture - Preliminary Blood Assessment and Plan (1) Abscess of right axilla Current Visit: Yes Status: Acute Code(s): L02.411 - CUTANEOUS ABSCESS OF RIGHT AXILLA SNOMED Code(s): 23962666 (2) Failure of outpatient treatment Current Visit: Yes Status: Acute Code(s): Z78.9 - OTHER SPECIFIED HEALTH STATUS SNOMED Code(s): 977081643 Plan: 1patient with right axillary abscess with spontaneous drainage likely from gram-positive skin sesar less likely gram-negative infection but that excluded failing outpatient oral doxycycline therapy 2Patient is status post surgical debridement and deep culture, which will be followed 3-we will continue with the cefepime and vancomycin pharmacy to dose while waiting for the culture finalized Dictation was produced using [employer] dictation software. please excuse any grammatical, word or spelling errors. Time with Patient: Greater than 30
[2023-09-27] MEDS ORDERED: HYDROmorphone 1 MG/ML 1 ML SYRINGE IVP STA (17:27)
[2023-09-27] MEDS: HYDROcodone/APAP 7.5-325MG 1 EACH TAB PO PRN (18:24)
[2023-09-27] MEDS: HYDROmorphone 1 MG/ML 1 ML SYRINGE IVP PRN (20:52)
[2023-09-27] MEDS: traZODone HCL 100 MG TAB PO SCH (21:13)
[2023-09-28] MEDS: HYDROmorphone 1 MG/ML 1 ML SYRINGE IVP PRN ×4 (00:05→23:47)
[2023-09-28] MEDS: CEFEPIME 2 GM in SODIUM CHLORIDE 0.9% 100 ML IVPB SCH ×4 (00:05→23:48)
[2023-09-28] MEDS: HYDROcodone/APAP 7.5-325MG 1 EACH TAB PO PRN ×4 (01:37→20:51)
[2023-09-28] MEDS: KETOROLAC 15 MG/ML 1 ML VIAL IVP PRN ×4 (02:24→22:41)
[2023-09-28] MEDS: VANCOMYCIN 1,250 MG in SODIUM CHLORIDE 0.9% 250 ML IVPB SCH ×3 (05:00→20:11)
[2023-09-28 05:15] LABS: African American GFR (CKD) >90 (>60 ml/min/1.73 sqM); Non-African American GFR(CKD) >90 (>60 ml/min/1.73 sqM)
[2023-09-28] MEDS: PANTOPRAZOLE 40 MG TABLET PO SCH (06:45)
[2023-09-28] MEDS: ENOXAPARIN 40 MG/0.4 ML SYRINGE SQ SCH (07:33)
[2023-09-28] MEDS: SERTRALINE 100 MG TAB PO SCH (07:34)
[2023-09-28] MEDS: hydrOXYzine HCL 25 MG TAB PO SCH ×3 (07:34→20:51)
[2023-09-28] MEDS: NON FORMULARY DRUG (Atomoxetine Hcl [Strattera] 60 MG Capsule) PO SCH (07:35)
[2023-09-28 09:38] LABS: Anion Gap 8 mmol/L; Blood Urea Nitrogen 18 mg/dL (7-17); Calcium 8.8 mg/dL (8.4-10.2); Carbon Dioxide 24 mmol/L (22-30); Chloride 103 mmol/L (98-107); Glucose 95 mg/dL (74-99); Potassium 4.9 mmol/L (3.5-5.1); Sodium 135 mmol/L (137-145)
[2023-09-28 10:14] LABS: Basophils # (A) 0.11 X 10*3/uL (0.00-0.10); Basophils % (A) 0.9 %; Eosinophils # (A) 0.34 X 10*3/uL (0.04-0.35); Eosinophils % (A) 2.8 %; HCT 35.5 % (37.2-46.3); HGB 11.7 d/dL (12.0-15.0); Lymphocytes # (A) 3.98 X 10*3/uL (0.90-5.00); Lymphocytes % (A) 32.8 %; MCH 29.9 pg (27.0-32.0); MCV 90.8 FL (80.0-97.0); Mean Platelet Volume 10.2 FL (9.5-12.2); Monocytes # (A) 0.83 X 10*3/uL (0.20-1.00); Monocytes % (A) 6.8 %; NRBC Per 100 WBC 0 X 10*3/uL (0.00-0.01); Neutrophils # (A) 6.81 X 10*3/uL (1.80-7.70); Neutrophils % (A) 56.3 %; Platelet Count 484 X 10*3/uL (140-440); RBC 3.91 X 10*6/uL (4.10-5.20); RDW 14.5 % (11.5-14.5); WBC 12.12 X 10*3/uL (4.50-10.00)
[2023-09-28] MEDS: HYDROmorphone 0.5 MG/0.5 ML SYRINGE IVP PRN ×4 (10:48→20:11)
--- NOTE | 2023-09-28 13:36 | P.PN ---
Subjective Progress Note Date: 09/28/23 Principal diagnosis: Right axillary abscess Patient is a 48-year-old female with a past medical history negative for hypertension hyperlipidemia anxiety depression ADHD and did have a history of recurrent skin soft tissue infection especially to the right axillary area, presented to hospital with right ancillary pain swelling redness and abscess with spontaneous drainage. The patient is status post Sharp excisional debridement deep subcutaneous right axilla, 3 x 5 x 5 cm completed on 09/27/2023 On today's evaluation that is 09/28/2023, the patient remains to be afebrile, the patient is breathing comfortably on room air and denies any shortness of breath, the patient denies any chest pain or cough, patient denies Abdominal pain and no nausea/vomiting or diarrhea , the patient pain to the right axillary area has decreased in intensity Patient white count is slightly up to 12.12, cultures are pending Objective - Vital Signs Vital signs: Vital Signs Temp 97.6 F 09/28/23 06:54 Pulse 80 09/28/23 06:54 Resp 16 09/28/23 06:54 BP 127/77 09/28/23 06:54 Pulse Ox 96 09/28/23 06:54 FiO2 Intake & Output 09/27/23 09/28/23 09/28/23 18:59 06:59 18:59 Intake Total 975 Output Total 50 Balance 925 Intake: IV 975 Output: Estimated Blood Loss 50 Other: Voiding Method Toilet # Voids 2 0 - Exam GENERAL DESCRIPTION: Middle-aged female lying in bed in no distress RESPIRATORY SYSTEM: Unlabored breathing , clear to auscultation anteriorly HEART: S1 S2 regular rate and rhythm , ABDOMEN: Soft , no tenderness EXTREMITIES: Right axillary wound is currently covered with a wound VAC - Labs CBC & Chem 7: 09/28/23 04:17 09/28/23 04:17 Labs: Abnormal Lab Results - Last 24 Hours (Table) 09/28/23 09/28/23 Range/Units 04:17 04:17 WBC 12.12 H (4.50-10.00) X 10*3/uL RBC 3.91 L (4.10-5.20) X 10*6/uL Hgb 11.7 L (12.0-15.0) d/dL Hct 35.5 L (37.2-46.3) % Plt Count 484 H (140-440) X 10*3/uL Basophils # 0.11 H (0.00-0.10) X 10*3/uL Sodium 135 L (137-145) mmol/L BUN 18 H (7-17) mg/dL Microbiology - Last 24 Hours (Table) 09/25/23 15:08 Anaerobic Culture - Preliminary Axilla - Right 09/25/23 15:08 Blood Culture - Preliminary Blood 09/25/23 15:08 Blood Culture - Preliminary Blood 09/25/23 15:08 Gram Stain - Preliminary Axilla - Right Wound Culture - Preliminary Coagulase Negative Staph Assessment and Plan (1) Abscess of right axilla Current Visit: Yes Status: Acute Code(s): L02.411 - CUTANEOUS ABSCESS OF RIGHT AXILLA SNOMED Code(s): 94003131 (2) Failure of outpatient treatment Current Visit: Yes Status: Acute Code(s): Z78.9 - OTHER SPECIFIED HEALTH STATUS SNOMED Code(s): 186066314 Plan: 1patient with right axillary abscess with spontaneous drainage likely from gram-positive skin sesar less likely gram-negative infection but that excluded failing outpatient oral doxycycline therapy 2Patient is status post surgical debridement and deep culture, which are currently pending 3-we will continue with the cefepime and vancomycin pharmacy to dose while waiting for the culture finalized to determine discharge antibiotics Dictation was produced using [employer] dictation software. please excuse any gramma tical, word or spelling errors. Time with Patient: Less than 30
--- NOTE | 2023-09-28 13:40 | P.PN ---
Subjective Progress Note Date: 09/28/23 She feels well. Continue wound vac. She has hernia. Recommend CT scan for abdominal pain and hernia. No smoking advised. Recommend high protein diet. Objective - Vital Signs Vital signs: Vital Signs Temp 97.6 F 09/28/23 06:54 Pulse 80 09/28/23 06:54 Resp 16 09/28/23 06:54 BP 127/77 09/28/23 06:54 Pulse Ox 96 09/28/23 06:54 FiO2 Intake & Output 09/27/23 09/28/23 09/28/23 18:59 06:59 18:59 Intake Total 975 Output Total 50 Balance 925 Intake: IV 975 Output: Estimated Blood Loss 50 Other: Voiding Method Toilet # Voids 2 0 - Labs CBC & Chem 7: 09/28/23 04:17 09/28/23 04:17 Labs: Abnormal Lab Results - Last 24 Hours (Table) 09/28/23 09/28/23 Range/Units 04:17 04:17 WBC 12.12 H (4.50-10.00) X 10*3/uL RBC 3.91 L (4.10-5.20) X 10*6/uL Hgb 11.7 L (12.0-15.0) d/dL Hct 35.5 L (37.2-46.3) % Plt Count 484 H (140-440) X 10*3/uL Basophils # 0.11 H (0.00-0.10) X 10*3/uL Sodium 135 L (137-145) mmol/L BUN 18 H (7-17) mg/dL Microbiology - Last 24 Hours (Table) 09/25/23 15:08 Anaerobic Culture - Preliminary Axilla - Right 09/25/23 15:08 Blood Culture - Preliminary Blood 09/25/23 15:08 Blood Culture - Preliminary Blood 09/25/23 15:08 Gram Stain - Preliminary Axilla - Right Wound Culture - Preliminary Coagulase Negative Staph
[2023-09-28] MEDS: IOPAMIDOL CONTRAST (ORAL USE) VIAL PO PRN ×2 (13:59→15:07)
--- NOTE | 2023-09-28 14:34 | P.PN ---
Subjective Progress Note Date: 09/28/23 48 year old female with PMH of ADHD, GERD, depression presents to the ED after being sent to by her surgeon Dr. Berg. Patient is recently being treated with oral doxycycline by her PCP for abscess of her right axilla. Wound has been producing drainage since Saturday. Her symptoms have a progressively getting worse which prompted her to get a general surgery referral. She has been urged to come to the ED for IV antibiotics for failed outpatient management of right axilla abscess. She denies any fever or chills. In the ED, she underwent extensive evaluation. Vital significant for tachycardia with heart rate of 104. CBC showed WBC count of 13.9 with platelet count of 479 CMP showed BUN of 18, glucose of 105 and albumin at 3.3. Lactic acid 1.2. CRP 1.3. Patient is admitted for sepsis related to right axilla abscess failed outpatient treatment. 09/26 Patient was seen and examined. Reports right axilla pain, 5-6/10 with Toradol. Requesting Dilaudid. Plans for debridement later on today with Dr. Berg. BMP shows Na 136. WCx moderate PMN with no organisms. 09/27 Patient gone to OR. Debridement delayed yesterday. CBC shows Plt 575. BMP K 5.2. BCx negative so far. ID recommends continuing Abx and report while following cultures. 09/28 Patient was seen and examined. She reports bulging in her abdomen with intermittent pain. Wound vac applied. Underwent sharp excisional debridement of the right axilla yesterday. CBC shows WBC 12.12, Hg 11.7, Plt 484. BMP Na 135, BUN 18. WCx coag negative staph. General: non toxic, no distress, appears at stated age Derm: warm, dry Head: atraumatic, normocephalic, symmetric Eyes: EOMI, no lid lag, anicteric sclera Cardiovascular: good distal perfusion in all 4 extremities. Lungs: breathing comfortably, no accessory muscle use Ext: no gross muscle atrophy, no edema, no contractures Neuro: no focal neuro deficits Psych: Alert, oriented, appropriate affect R axilla wound with wound vac applied. Sepsis secondary to right axilla abscess Abdominal pain Leukocytosis Normocytic anemia Chronic conditions: ADHD, GERD, depression Based on my assessment of this patient, this patient meets a moderate complexity Patient has an acute diagnosis of right axilla abscess causing sepsis which poses a threat to life or bodily function. Sepsis secondary to right axilla abscess: WCx and BCx ordered. Continue Vancomycin dosed per pharmacy and Cefepime 2g IV Q8H. Pain control with Dialudid 1 mg IV Q3H PRN. [place] added as well. DC IVF and encourage hydration by mouth. Telemetry monitoring. ID and surgery on board. Abdominal pain: CT AP ordered by surgery. Leukocytosis: Possibly reactive. Normocytic anemia: Dilutional. Continue to monitor. Lovenox SQ for DVT prophylaxis. FULL CODE. I have reviewed the following fashion consultant sales notes: ID, Surgery note. I have reviewed the results of the following tests: CBC, BMP, WCx. I have ordered the following tests: WCx pending. BCx pending. BMP. I have discussed the care of this patient with the following independent historian: I have independently interpreted the following test below: I have discussed the management of this patient with the following physician: Objective - Vital Signs Vital signs: Vital Signs Temp 97.6 F 09/28/23 06:54 Pulse 80 09/28/23 06:54 Resp 16 09/28/23 06:54 BP 127/77 09/28/23 06:54 Pulse Ox 96 09/28/23 06:54 FiO2 Intake & Output 09/27/23 09/28/23 09/28/23 18:59 06:59 18:59 Intake Total 975 Output Total 50 Balance 925 Intake: IV 975 Output: Estimated Blood Loss 50 Other: Voiding Method Toilet # Voids 2 0 - Labs CBC & Chem 7: 09/28/23 04:17 09/28/23 04:17 Labs: Abnormal Lab Results - Last 24 Hours (Table) 09/28/23 09/28/23 Range/Units 04:17 04:17 WBC 12.12 H (4.50-10.00) X 10*3/uL RBC 3.91 L (4.10-5.20) X 10*6/uL Hgb 11.7 L (12.0-15.0) d/dL Hct 35.5 L (37.2-46.3) % Plt Count 484 H (140-440) X 10*3/uL Basophils # 0.11 H (0.00-0.10) X 10*3/uL Sodium 135 L (137-145) mmol/L BUN 18 H (7-17) mg/dL Microbiology - Last 24 Hours (Table) 09/25/23 15:08 Anaerobic Culture - Preliminary Axilla - Right 09/25/23 15:08 Blood Culture - Preliminary Blood 09/25/23 15:08 Blood Culture - Preliminary Blood 09/25/23 15:08 Gram Stain - Preliminary Axilla - Right Wound Culture - Preliminary Coagulase Negative Staph
--- NOTE | 2023-09-28 16:58 | CT ---
EXAMINATION TYPE: CT abdomen pelvis w con DATE OF EXAM: 09/28/2023 COMPARISON: None INDICATION: R/O strangulated hernia. DLP: 1022.9 mGycm, Automated exposure control for dose reduction was used. CONTRAST: 100 ml mL of Isovue 300. Study performed with Oral Contrast TECHNIQUE: Axial images were obtained from above the diaphragm to the pubic rami in the axial plane a t 5 mm thick sections. Reconstructed images are reviewed on the computer in the coronal plane. FINDINGS: Limited CT sections are obtained the lung bases. The lung bases are clear. CT ABDOMEN: Liver: Normal Spleen: Normal Pancreas: Normal Adrenal glands: The adrenal glands are normal. Gallbladder: Normal Kidneys: No masses are evident. No hydronephrosis is present. No cysts are present. Delayed images were obtained through the kidneys, which remain unremarkable. Aorta: Vascular calcification is within the aorta. Inferior vena cava: Normal. CT PELVIS: No anterior wall abdomen or pelvic herniations evident. No inguinal herniation evident. No periumbilical hernia identified Loops of bowel within the abdomen and pelvis are normal. Fecal debris is through the colon. There are loops of bowel which are incompletely distended or lack oral contrast limiting their evaluation. Appendix: Normal as visualized. Urinary bladder: Normal. Genitourinary structures: Uterus appears normal. Adnexa are normal. Osseous structures: No suspicious lytic or sclerotic lesions. IMPRESSION: 1. No suspicious abdominal wall hernia. 2. Moderate fecal retention throughout the ascending and transverse colon.
[2023-09-28] MEDS: traZODone HCL 100 MG TAB PO SCH (20:10)
[2023-09-29] MEDS: HYDROcodone/APAP 7.5-325MG 1 EACH TAB PO PRN ×4 (03:11→21:03)
[2023-09-29] MEDS ORDERED: VANCOMYCIN TROUGH DUE 1 EACH MISC MISCELLANE ONE (04:00)
[2023-09-29] MEDS: VANCOMYCIN 1,250 MG in SODIUM CHLORIDE 0.9% 250 ML IVPB SCH ×3 (05:18→21:05)
[2023-09-29] MEDS: HYDROmorphone 0.5 MG/0.5 ML SYRINGE IVP PRN ×7 (05:18→23:58)
[2023-09-29] MEDS: KETOROLAC 15 MG/ML 1 ML VIAL IVP PRN ×2 (06:24→11:40)
[2023-09-29] MEDS: PANTOPRAZOLE 40 MG TABLET PO SCH (06:25)
[2023-09-29 06:30] LABS: African American GFR (CKD) >90 (>60 ml/min/1.73 sqM); Non-African American GFR(CKD) >90 (>60 ml/min/1.73 sqM)
[2023-09-29] MEDS: SERTRALINE 100 MG TAB PO SCH (06:55)
[2023-09-29] MEDS: ENOXAPARIN 40 MG/0.4 ML SYRINGE SQ SCH (06:55)
[2023-09-29] MEDS: hydrOXYzine HCL 25 MG TAB PO SCH ×3 (06:56→21:03)
[2023-09-29] MEDS: NON FORMULARY DRUG (Atomoxetine Hcl [Strattera] 60 MG Capsule) PO SCH (06:56)
[2023-09-29] MEDS: diphenhydrAMINE 25 MG CAP PO PRN ×2 (08:12→18:16)
[2023-09-29] MEDS: ONDANSETRON 4 MG/2 ML VIAL IVP PRN (08:12)
[2023-09-29] MEDS: CEFEPIME 2 GM in SODIUM CHLORIDE 0.9% 100 ML IVPB SCH ×3 (08:14→23:58)
--- NOTE | 2023-09-29 12:11 | P.PN ---
Subjective Progress Note Date: 09/29/23 48 year old female with PMH of ADHD, GERD, depression presents to the ED after being sent to by her surgeon Dr. Berg. Patient is recently being treated with oral doxycycline by her PCP for abscess of her right axilla. Wound has been producing drainage since Saturday. Her symptoms have a progressively getting worse which prompted her to get a general surgery referral. She has been urged to come to the ED for IV antibiotics for failed outpatient management of right axilla abscess. She denies any fever or chills. In the ED, she underwent extensive evaluation. Vital significant for tachycardia with heart rate of 104. CBC showed WBC count of 13.9 with platelet count of 479 CMP showed BUN of 18, glucose of 105 and albumin at 3.3. Lactic acid 1.2. CRP 1.3. Patient is admitted for sepsis related to right axilla abscess failed outpatient treatment. 09/26 Patient was seen and examined. Reports right axilla pain, 5-6/10 with Toradol. Requesting Dilaudid. Plans for debridement later on today with Dr. Berg. BMP shows Na 136. WCx moderate PMN with no organisms. 09/27 Patient gone to OR. Debridement delayed yesterday. CBC shows Plt 575. BMP K 5.2. BCx negative so far. ID recommends continuing Abx and report while following cultures. 09/28 Patient was seen and examined. She reports bulging in her abdomen with intermittent pain. Wound vac applied. Underwent sharp excisional debridement of the right axilla yesterday. CBC shows WBC 12.12, Hg 11.7, Plt 484. BMP Na 135, BUN 18. WCx coag negative staph. 09/29 Patient was seen and examined. CT AP done shows no hernia and moderate fecal retention. Renal function within normal limits. Discussed with Dr. Berg, no additional surgical intervention planned, likely need IV Abx on discharge per Dr. Kapadia recommendations. Deep wound Cx shows rare PMN with no organisms. Initial WCx shows staph epi. General: non toxic, no distress, appears at stated age Derm: warm, dry Head: atraumatic, normocephalic, symmetric Eyes: EOMI, no lid lag, anicteric sclera Cardiovascular: good distal perfusion in all 4 extremities. Lungs: breathing comfortably, no accessory muscle use Ext: no gross muscle atrophy, no edema, no contractures Neuro: no focal neuro deficits Psych: Alert, oriented, appropriate affect R axilla wound with wound vac applied. Sepsis secondary to right axilla abscess Abdominal pain Leukocytosis Normocytic anemia Chronic conditions: ADHD, GERD, depression Based on my assessment of this patient, this patient meets a high complexity Patient has an acute diagnosis of right axilla abscess causing sepsis which poses a threat to life or bodily function. Sepsis secondary to right axilla abscess: WCx and BCx ordered. Continue Vancomycin dosed per pharmacy and Cefepime 2g IV Q8H. Pain control with Dialudid 1 mg IV Q3H PRN. [place] added as well. DC IVF and encourage hydration by mouth. Telemetry monitoring. ID and surgery on board. Abdominal pain: CT AP shows moderate stool burden. Leukocytosis: Possibly reactive. Normocytic anemia: Dilutional. Continue to monitor. Lovenox SQ for DVT prophylaxis. FULL CODE. I have reviewed the following strategic consultant notes: ID, Surgery note. I have reviewed the results of the following tests: Renal function, CTAP, WCx. I have ordered the following tests: BMP. I have discussed the care of this patient with the following independent historian: I have independently interpreted the following test below: I have discussed the management of this patient with the following physician: Discussed with Dr. Berg as above. Objective - Vital Signs Vital signs: Vital Signs Temp 97.5 F L 09/29/23 07:02 Pulse 79 09/29/23 07:02 Resp 18 09/29/23 07:02 BP 138/91 09/29/23 07:02 Pulse Ox 95 09/29/23 07:02 FiO2 Intake & Output 09/28/23 09/29/23 09/29/23 18:59 06:59 18:59 Intake Total 1080 Balance 1080 Intake: Oral 1080 Other: # Voids 3 2 - Labs CBC & Chem 7: 09/28/23 04:17 09/29/23 05:13 Labs: Microbiology - Last 24 Hours (Table) 09/25/23 15:08 Blood Culture - Preliminary Blood 09/25/23 15:08 Blood Culture - Preliminary Blood 09/25/23 15:08 Gram Stain - Final Axilla - Right Wound Culture - Final Staphylococcus epidermidis 09/27/23 12:14 Gram Stain - Preliminary Axilla - Right Wound Culture - Preliminary
--- NOTE | 2023-09-29 12:35 | P.PN ---
Subjective Progress Note Date: 09/29/23 Microbiology shows multi-drug resistant staph aureus as a cause for failed outpatient management. May do wound vac with nursing starting tomorrow Saturday. PICC line and antibiotics per infectious disease team. Patient reported swelling from abdominal wall hernia. CT reviewed without findings of small bowel containing hernia. Recommend addressing right axillary infection. Deferred management for abdominal wall swelling. Objective - Vital Signs Vital signs: Vital Signs Temp 97.5 F L 09/29/23 07:02 Pulse 79 09/29/23 07:02 Resp 18 09/29/23 07:02 BP 138/91 09/29/23 07:02 Pulse Ox 95 09/29/23 07:02 FiO2 Intake & Output 09/28/23 09/29/23 09/29/23 18:59 06:59 18:59 Intake Total 1080 Balance 1080 Intake: Oral 1080 Other: # Voids 3 2 - Labs CBC & Chem 7: 09/28/23 04:17 09/29/23 05:13 Labs: Microbiology - Last 24 Hours (Table) 09/25/23 15:08 Blood Culture - Preliminary Blood 09/25/23 15:08 Blood Culture - Preliminary Blood 09/25/23 15:08 Gram Stain - Final Axilla - Right Wound Culture - Final Staphylococcus epidermidis 09/27/23 12:14 Gram Stain - Preliminary Axilla - Right Wound Culture - Preliminary
--- NOTE | 2023-09-29 15:48 | P.PN ---
Subjective Progress Note Date: 09/29/23 Principal diagnosis: Right axillary abscess Patient is a 48-year-old female with a past medical history negative for hypertension hyperlipidemia anxiety depression ADHD and did have a history of recurrent skin soft tissue infection especially to the right axillary area, presented to hospital with right ancillary pain swelling redness and abscess with spontaneous drainage. The patient is status post Sharp excisional debridement deep subcutaneous right axilla, 3 x 5 x 5 cm completed on 09/27/2023 On today's evaluation that is 09/29/2023, the patient denies any fever or chills, the patient is breathing comfortably on room air and no need for supplemental oxygen, the patient denies any chest pain or cough, patient denies nausea/vomiting or diarrhea and no abdominal pain, the patient pain to the right axillary area has decreased in intensity Patient white count is slightly up to 12.12 as of yesterday no CBC was done today, creatinine 0.56, deep OR cultures are pending Objective - Vital Signs Vital signs: Vital Signs Temp 97.5 F L 09/29/23 07:02 Pulse 79 09/29/23 07:02 Resp 18 09/29/23 07:02 BP 138/91 09/29/23 07:02 Pulse Ox 95 09/29/23 07:02 FiO2 Intake & Output 09/28/23 09/29/23 09/29/23 18:59 06:59 18:59 Intake Total 1080 Balance 1080 Intake: Oral 1080 Other: # Voids 3 2 - Exam GENERAL DESCRIPTION: Middle-aged female lying in bed in no distress RESPIRATORY SYSTEM: Unlabored breathing , clear to auscultation anteriorly HEART: S1 S2 regular rate and rhythm , ABDOMEN: Soft , no tenderness EXTREMITIES: Right axillary wound is currently covered with a wound VAC - Labs CBC & Chem 7: 09/28/23 04:17 09/29/23 05:13 Labs: Microbiology - Last 24 Hours (Table) 09/25/23 15:08 Blood Culture - Preliminary Blood 09/25/23 15:08 Blood Culture - Preliminary Blood 09/25/23 15:08 Gram Stain - Final Axilla - Right Wound Culture - Final Staphylococcus epidermidis 09/27/23 12:14 Gram Stain - Preliminary Axilla - Right Wound Culture - Preliminary Assessment and Plan (1) Abscess of right axilla Current Visit: Yes Status: Acute Code(s): L02.411 - CUTANEOUS ABSCESS OF RIGHT AXILLA SNOMED Code(s): 60501151 (2) Failure of outpatient treatment Current Visit: Yes Status: Acute Code(s): Z78.9 - OTHER SPECIFIED HEALTH STATUS SNOMED Code(s): 450076255 Plan: 1patient with right axillary abscess with spontaneous drainage likely from gram-positive skin sesar less likely gram-negative infection but that excluded failing outpatient oral doxycycline therapy 2Patient is status post surgical debridement and deep culture, which are currently pending, superficial culture grew staph epi 3-patient continue with the cefepime and vancomycin pharmacy to dose while waiting for the culture finalized to determine discharge antibiotics will evaluate the wound tomorrow at the time of wound VAC change Dictation was produced using [employer] dictation software. please excuse any grammatical, word or spelling errors. Time with Patient: Less than 30
[2023-09-29] MEDS: NICOTINE 21MG/24HR PATCH TRANSDERM SCH (18:59)
[2023-09-29] MEDS: traZODone HCL 100 MG TAB PO SCH (21:03)
[2023-09-30] MEDS: HYDROmorphone 0.5 MG/0.5 ML SYRINGE IVP PRN ×4 (04:02→23:41)
[2023-09-30] MEDS: HYDROcodone/APAP 7.5-325MG 1 EACH TAB PO PRN ×3 (04:02→20:53)
[2023-09-30] MEDS: VANCOMYCIN 1,250 MG in SODIUM CHLORIDE 0.9% 250 ML IVPB SCH ×3 (04:03→20:54)
[2023-09-30 06:42] LABS: African American GFR (CKD) >90 (>60 ml/min/1.73 sqM); Non-African American GFR(CKD) >90 (>60 ml/min/1.73 sqM)
[2023-09-30] MEDS: PANTOPRAZOLE 40 MG TABLET PO SCH (06:43)
[2023-09-30] MEDS: KETOROLAC 15 MG/ML 1 ML VIAL IVP PRN ×2 (08:32→17:37)
[2023-09-30] MEDS: ENOXAPARIN 40 MG/0.4 ML SYRINGE SQ SCH (08:33)
[2023-09-30] MEDS: ACETAMINOPHEN TAB 325 MG TAB PO PRN (08:33)
[2023-09-30] MEDS: CEFEPIME 2 GM in SODIUM CHLORIDE 0.9% 100 ML IVPB SCH ×3 (08:33→23:41)
[2023-09-30] MEDS: diphenhydrAMINE 25 MG CAP PO PRN ×2 (08:34→23:04)
[2023-09-30] MEDS: SERTRALINE 100 MG TAB PO SCH (08:34)
[2023-09-30] MEDS: NON FORMULARY DRUG (Atomoxetine Hcl [Strattera] 60 MG Capsule) PO SCH (08:34)
[2023-09-30] MEDS: NICOTINE 21MG/24HR PATCH TRANSDERM SCH (08:35)
[2023-09-30] MEDS: hydrOXYzine HCL 25 MG TAB PO SCH ×3 (08:47→20:52)
[2023-09-30] MEDS: HYDROmorphone 1 MG/ML 1 ML SYRINGE IVP PRN (10:35)
--- NOTE | 2023-09-30 11:12 | P.PN ---
Subjective Progress Note Date: 09/30/23 CHIEF COMPLAINT: Right axilla ulcer HISTORY OF PRESENT ILLNESS: Right axillary necrotic ulcer status post debridement and wound VAC placement. Patient receiving antibiotics. She reports her pain is controlled. She does complain of itching at the edge of the taper from the wound VAC. She denies any nausea vomiting. Afebrile. Final culture results pending. Labs from today pending PHYSICAL EXAM: VITAL SIGNS: Reviewed GENERAL: Well-developed in no acute distress. HEENT: No sclera icterus. Extraocular movements grossly intact. Moist buccal mucosa. Head is atraumatic, normocephalic. Hears conversational speech. No nasal drainage. NECK: Supple without lymphadenopathy. CHEST: Non-labored respirations and equal bilateral excursions. CARDIOVASCULAR: Palpable 2+ radial pulses. ABDOMEN: Soft. Nondistended. Nontender. MUSCULOSKELETAL: No clubbing or cyanosis. NEUROLOGIC: No focal or lateralizing signs. Cranial nerves II through XII grossly intact. PSYCH: Appropriate affect. Alert and oriented to person, place and time. SKIN: Right axilla with wound VAC in place. The medial aspect of chest wall in the axillary area does show small skin irritation and abrasion from tape of wo und vac ASSESSMENT: 1. Right axillary necrotic ulcer 2. Complicated right axillary hidradenitis 3. Failed outpatient antibiotic for hidradenitis 4. Tobacco abuse disorder 5. Generalized anxiety disorder 6. ADD with ADHD PLAN: -Wound VAC to be changed today -Awaiting discharge antibiotic recommendations per ID service -Continue pain management -volunteer manager arranging wound VAC for outpatient. They need insurance authorization. Physician Oiler Helper note has been reviewed by physician. Signing provider agrees with the documented findings, assessment, and plan of care. Objective - Vital Signs Vital signs: Vital Signs Temp 98.2 F 09/30/23 06:42 Pulse 91 09/30/23 06:42 Resp 14 09/30/23 06:42 BP 146/94 09/30/23 06:42 Pulse Ox 98 09/30/23 06:42 FiO2 Intake & Output 09/29/23 09/30/23 09/30/23 18:59 06:59 18:59 Intake Total 1080 Balance 1080 Intake: Oral 1080 Other: # Voids 4 2 1 - Labs CBC & Chem 7: 09/28/23 04:17 09/30/23 05:01 Labs: Microbiology - Last 24 Hours (Table) 09/25/23 15:08 Anaerobic Culture - Final Axilla - Right 09/27/23 12:14 Anaerobic Culture - Preliminary Axilla - Right 09/27/23 12:14 Gram Stain - Final Axilla - Right Wound Culture - Final
[2023-09-30 12:44] LABS: Basophils # (A) 0.1 k/uL (0-0.2); Basophils % (A) 1 %; Eosinophils # (A) 0.3 k/uL (0-0.7); Eosinophils % (A) 3 %; HGB 11.7 gm/dL (11.4-16.0); Lymphocytes # (A) 2.2 k/uL (1.0-4.8); Lymphocytes % (A) 20 %; MCH 31.5 pg (25.0-35.0); MCHC 33.4 g/dL (31.0-37.0); MCV 94.4 fL (80.0-100.0); Mean Platelet Volume 9.6; Monocytes # (A) 0.9 k/uL (0-1.0); Monocytes % (A) 8 %; Neutrophils # (A) 7.2 k/uL (1.3-7.7); Neutrophils % (A) 67 %; Platelet Count 496 k/uL (150-450); RDW 13.7 % (11.5-15.5); WBC 10.8 k/uL (3.8-10.6)
[2023-09-30 12:50] LABS: Anion Gap 8 mmol/L; Blood Urea Nitrogen 13 mg/dL (7-17); Calcium 9.2 mg/dL (8.4-10.2); Carbon Dioxide 27 mmol/L (22-30); Chloride 101 mmol/L (98-107); Glucose 94 mg/dL (74-99); Potassium 4.7 mmol/L (3.5-5.1); Sodium 136 mmol/L (137-145)
--- NOTE | 2023-09-30 13:18 | P.PN ---
Subjective Progress Note Date: 09/30/23 48 year old female with PMH of ADHD, GERD, depression presents to the ED after being sent to by her surgeon Dr. Berg. Patient is recently being treated with oral doxycycline by her PCP for abscess of her right axilla. Wound has been producing drainage since Saturday. Her symptoms have a progressively getting worse which prompted her to get a general surgery referral. She has been urged to come to the ED for IV antibiotics for failed outpatient management of right axilla abscess. She denies any fever or chills. In the ED, she underwent extensive evaluation. Vital significant for tachycardia with heart rate of 104. CBC showed WBC count of 13.9 with platelet count of 479 CMP showed BUN of 18, glucose of 105 and albumin at 3.3. Lactic acid 1.2. CRP 1.3. Patient is admitted for sepsis related to right axilla abscess failed outpatient treatment. 09/26 Patient was seen and examined. Reports right axilla pain, 5-6/10 with Toradol. Requesting Dilaudid. Plans for debridement later on today with Dr. Berg. BMP shows Na 136. WCx moderate PMN with no organisms. 09/27 Patient gone to OR. Debridement delayed yesterday. CBC shows Plt 575. BMP K 5.2. BCx negative so far. ID recommends continuing Abx and report while following cultures. 09/28 Patient was seen and examined. She reports bulging in her abdomen with intermittent pain. Wound vac applied. Underwent sharp excisional debridement of the right axilla yesterday. CBC shows WBC 12.12, Hg 11.7, Plt 484. BMP Na 135, BUN 18. WCx coag negative staph. 09/29 Patient was seen and examined. CT AP done shows no hernia and moderate fecal retention. Renal function within normal limits. Discussed with Dr. Berg, no additional surgical intervention planned, likely need IV Abx on discharge per Dr. Kapadia recommendations. Deep wound Cx shows rare PMN with no organisms. Initial WCx shows staph epi. 09/30 Patient was seen and examined. Discussed with Dr. Kapadia, recommends wound vac and PICC line for Vancomycin on discharge. Case management on board. Patient reports well controlled pain. CBC WBC count 10.8, Plt 496. BMP Na 136. General: non toxic, no distress, appears at stated age Derm: warm, dry Head: atraumatic, normocephalic, symmetric Eyes: EOMI, no lid lag, anicteric sclera Cardiovascular: good distal perfusion in all 4 extremities. Lungs: breathing comfortably, no accessory muscle use Ext: no gross muscle atrophy, no edema, no contractures Neuro: no focal neuro deficits Psych: Alert, oriented, appropriate affect R axilla wound with wound vac applied. Sepsis secondary to right axilla abscess Abdominal pain Leukocytosis Normocytic anemia Chronic conditions: ADHD, GERD, depression Based on my assessment of this patient, this patient meets a high complexity Patient has an acute diagnosis of right axilla abscess causing sepsis which poses a threat to life or bodily function. Sepsis secondary to right axilla abscess: WCx shows staph epi. Continue Vancomycin dosed per pharmacy and Cefepime 2g IV Q8H. Pain control with Dialudid 1 mg IV Q3H PRN. [place] added as well. DC IVF and encourage hydration by mouth. Telemetry monitoring. ID and surgery on board. Abdominal pain: CT AP shows moderate stool burden. Leukocytosis: Possibly reactive. Normocytic anemia: Dilutional. Continue to monitor. Lovenox SQ for DVT prophylaxis. FULL CODE. I have reviewed the following middleware consultant notes: Surgery note. I have reviewed the results of the following tests: CBC, BMP. I have ordered the following tests: BMP. I have discussed the care of this patient with the following independent historian: I have independently interpreted the following test below: I have discussed the management of this patient with the following physician: Discussed with Dr. Kapadia as above. Objective - Vital Signs Vital signs: Vital Signs Temp 98.2 F 09/30/23 06:42 Pulse 91 09/30/23 06:42 Resp 14 09/30/23 06:42 BP 146/94 09/30/23 06:42 Pulse Ox 98 09/30/23 06:42 FiO2 Intake & Output 09/29/23 09/30/23 09/30/23 18:59 06:59 18:59 Intake Total 1080 Balance 1080 Intake: Oral 1080 Other: # Voids 4 2 1 - Labs CBC & Chem 7: 09/30/23 05:01 09/30/23 05:01 Labs: Abnormal Lab Results - Last 24 Hours (Table) 09/30/23 09/30/23 Range/Units 05:01 05:01 WBC 10.8 H (3.8-10.6) k/uL RBC 3.70 L (3.80-5.40) m/uL Plt Count 496 H (150-450) k/uL Sodium 136 L (137-145) mmol/L Microbiology - Last 24 Hours (Table) 09/25/23 15:08 Anaerobic Culture - Final Axilla - Right 09/27/23 12:14 Anaerobic Culture - Preliminary Axilla - Right 09/27/23 12:14 Gram Stain - Final Axilla - Right Wound Culture - Final
[2023-09-30] MEDS: traZODone HCL 100 MG TAB PO SCH (20:54)
[2023-10-01] MEDS: HYDROcodone/APAP 7.5-325MG 1 EACH TAB PO PRN ×2 (05:53→12:47)
[2023-10-01] MEDS: VANCOMYCIN 1,250 MG in SODIUM CHLORIDE 0.9% 250 ML IVPB SCH ×2 (05:54→12:47)
[2023-10-01] MEDS: PANTOPRAZOLE 40 MG TABLET PO SCH (06:47)
[2023-10-01 08:03] LABS: Prothrombin Time 10.6 sec (10.0-12.5)
[2023-10-01] MEDS: HYDROmorphone 1 MG/ML 1 ML SYRINGE IVP PRN (08:18)
[2023-10-01] MEDS: ENOXAPARIN 40 MG/0.4 ML SYRINGE SQ SCH (08:19)
[2023-10-01] MEDS: SERTRALINE 100 MG TAB PO SCH (08:19)
[2023-10-01] MEDS: NICOTINE 21MG/24HR PATCH TRANSDERM SCH (08:19)
[2023-10-01] MEDS: hydrOXYzine HCL 25 MG TAB PO SCH (08:20)
[2023-10-01] MEDS: NON FORMULARY DRUG (Atomoxetine Hcl [Strattera] 60 MG Capsule) PO SCH (08:21)
[2023-10-01] MEDS: CEFEPIME 2 GM in SODIUM CHLORIDE 0.9% 100 ML IVPB SCH (08:22)
[2023-10-01] MEDS ORDERED: IBUPROFEN 800 MG TAB PO PRN (08:27)
[2023-10-01 08:49] LABS: Basophils # (A) 0.1 k/uL (0-0.2); Basophils % (A) 1 %; Eosinophils # (A) 0.4 k/uL (0-0.7); Eosinophils % (A) 3 %; HCT 38.1 % (34.0-46.0); HGB 12.4 gm/dL (11.4-16.0); Lymphocytes # (A) 2.5 k/uL (1.0-4.8); Lymphocytes % (A) 24 %; MCH 30.4 pg (25.0-35.0); MCHC 32.6 g/dL (31.0-37.0); MCV 93.4 fL (80.0-100.0); Mean Platelet Volume 8.4; Monocytes # (A) 0.9 k/uL (0-1.0); Monocytes % (A) 8 %; Neutrophils # (A) 6.5 k/uL (1.3-7.7); Neutrophils % (A) 62 %; Platelet Count 508 k/uL (150-450); RBC 4.08 m/uL (3.80-5.40); RDW 13.7 % (11.5-15.5); WBC 10.5 k/uL (3.8-10.6)
--- NOTE | 2023-10-01 09:46 | IR ---
PICC LINE PLACEMENT: HISTORY: Infection requiring long-term antibiotic therapy PROCEDURE: Ultrasound and fluoroscopic guidance of PICC line placement. COMPLICATIONS: None ANESTHESIA: 1. 1% Lidocaine locally. FINDINGS/TECHNIQUE: The procedure was explained to the patient. The risks, complications, benefits and alternatives were discussed and any questions were answered. Informed consent was obtained. The patient was placed supine on the fluoroscopic table and prepped and draped in the usual sterile fash ion. Utilizing a 21 gauge needle and sonographic and fluoroscopic guidance, access in the left basi lic vein was achieved and there is placement of a 0.018 guidewire. The vein is patent. A 4-F sheath was placed over the guidewire. The guidewire and dilator were removed and a 4-F. PICC line was plac ed through the sheath with the tip at the level of the SVC. The sheath was removed, the catheter was flushed and sutured into position. The patient was stable throughout the procedure and remained sta ble upon discharge from the Department of Radiology. The vein puncture was patent under ultrasound. A rocha scale image was obtained to document patency of the vein punctured. All elements of the maximal barrier technique were utilized. FLUOROSCOPY TIME: DAP 0.1491Gy cm2 IMPRESSION: Successful PICC line placement under ultrasound and fluoroscopic guidance.
[2023-10-01] MEDS ORDERED: CYCLOBENZAPRINE 10 MG TAB PO PRN (11:04)
--- NOTE | 2023-10-01 11:09 | P.DS ---
Providers Date of admission: 09/25/23 16:53 Expected date of discharge: 10/01/23 Attending physician: Dieudonne Bro MD Consults: 09/25/23 17:33 Consult Physician Urgent Consulting Provider: Latrice Berg Consult Reason/Comments: Abscess right axilla Do you want consulting provider notified?: Already Contacted Consult Physician Urgent Consulting Provider: Eleanor Kapadia Consult Reason/Comments: Abscess right axilla, failed outpatient management Do you want consulting provider notified?: Yes Primary care physician: Neal Paris MD Hospital Course: 48 year old female with PMH of ADHD, GERD, depression presents to the ED after being sent to by her surgeon Dr. Berg. Patient is recently being treated with oral doxycycline by her PCP for abscess of her right axilla. Wound has been producing drainage since Saturday. Her symptoms have a progressively getting worse which prompted her to get a general surgery referral. She has been urged to come to the ED for IV antibiotics for failed outpatient management of right axilla abscess. She denies any fever or chills. In the ED, she underwent extensive evaluation. Vital significant for tachycardia with heart rate of 104. CBC showed WBC count of 13.9 with platelet count of 479 CMP showed BUN of 18, glucose of 105 and albumin at 3.3. Lactic acid 1.2. CRP 1.3. Patient is admitted for sepsis related to right axilla abscess failed outpatient treatment. 09/26 Patient was seen and examined. Reports right axilla pain, 5-6/10 with Toradol. Requesting Dilaudid. Plans for debridement later on today with Dr. Berg. BMP shows Na 136. WCx moderate PMN with no organisms. 09/27 Patient gone to OR. Debridement delayed yesterday. CBC shows Plt 575. BMP K 5.2. BCx negative so far. ID recommends continuing Abx and report while following cultures. 09/28 Patient was seen and examined. She reports bulging in her abdomen with intermittent pain. Wound vac applied. Underwent sharp excisional debridement of the right axilla yesterday. CBC shows WBC 12.12, Hg 11.7, Plt 484. BMP Na 135, BUN 18. WCx coag negative staph. 09/29 Patient was seen and examined. CT AP done shows no hernia and moderate fecal retention. Renal function within normal limits. Discussed with Dr. Berg, no additional surgical intervention planned, likely need IV Abx on discharge per Dr. Kapadia recommendations. Deep wound Cx shows rare PMN with no organisms. Initial WCx shows staph epi. 09/30 Patient was seen and examined. Discussed with Dr. Kapadia, recommends wound vac and PICC line for Vancomycin on discharge. Case management on board. Patient reports well controlled pain. CBC WBC count 10.8, Plt 496. BMP Na 136. 10/01 Patient was seen and examined. Awaiting insurance authorization for wound vac. PICC line in place. Plans for Vancomycin on discharge. Patient prefers no narcotics on discharge, plans for discharge home on Ibuprofen and Flexeril. Pertinent studies include CT AP. Pertinent procedures include sharp excisional debridement of the right axilla. General: non toxic, no distress, appears at stated age Derm: warm, dry Head: atraumatic, normocephalic, symmetric Eyes: EOMI, no lid lag, anicteric sclera Cardiovascular: good distal perfusion in all 4 extremities. Lungs: breathing comfortably, no accessory muscle use Ext: no gross muscle atrophy, no edema, no contractures Neuro: no focal neuro deficits Psych: Alert, oriented, appropriate affect R axilla wound with wound vac applied. Discharge Diagnosis: Sepsis secondary to right axilla abscess Abdominal pain Leukocytosis Normocytic anemia This complex discharge took 35 minutes to complete. Patient Condition at Discharge: Stable Plan - Discharge Summary Discharge Rx Participant: Yes New Discharge Prescriptions: No Action traZODone HCL [Desyrel] 100 mg PO HS Sertraline [Zoloft] 200 mg PO DAILY Omeprazole 40 mg PO DAILY Naltrexone Microspheres [Vivitrol] 380 mg IM Q28D Atomoxetine HCl [Strattera] 60 mg PO DAILY Doxycycline Monohydrate 100 mg PO BID Meloxicam [Mobic] 15 mg PO DAILY hydrOXYzine HCL [Atarax] 25 mg PO TID Discharge Medication List Atomoxetine HCl [Strattera] 60 mg PO DAILY 09/25/23 [History] Doxycycline Monohydrate 100 mg PO BID 09/25/23 [History] Meloxicam [Mobic] 15 mg PO DAILY 09/25/23 [History] Naltrexone Microspheres [Vivitrol] 380 mg IM Q28D 09/25/23 [History] Omeprazole 40 mg PO DAILY 10/25/23 [History] Sertraline [Zoloft] 200 mg PO DAILY 09/25/23 [History] hydrOXYzine HCL [Atarax] 25 mg PO TID 09/25/23 [History] traZODone HCL [Desyrel] 100 mg PO HS 09/25/23 [History] Follow up Appointment(s)/Referral(s): Neal Paris MD [Primary Care Provider] - 1-2 days [facility], [NON-STAFF] - 1-2 Days () [facility], [REFERRING] - As Needed Patient Instructions/Handouts: Abscess Incision and Drainage (DC), How to Care for Your PICC (Peripherally Inserted Central Catheter) (DC) Activity/Diet/Wound Care/Special Instructions: [facility] Wound Vac supplier: [phone] - call with concerns about the wound vac
--- NOTE | 2023-10-01 14:05 | P.PN ---
Subjective Progress Note Date: 10/01/23 CHIEF COMPLAINT: Right axilla ulcer HISTORY OF PRESENT ILLNESS: Right axillary necrotic ulcer status post debridement and wound VAC placement. Patient is status post PICC line placement. She has IV antibiotics arranged for outpatient through infectious disease. She is awaiting insurance authorization for outpatient wound VAC. Wound VAC was changed yesterday by nursing staff. Afebrile. WBC 10.5 PHYSICAL EXAM: VITAL SIGNS: Reviewed GENERAL: Well-developed in no acute distress. HEENT: No sclera icterus. Extraocular movements grossly intact. Moist buccal mucosa. Head is atraumatic, normocephalic. Hears conversational speech. No nasal drainage. NECK: Supple without lymphadenopathy. CHEST: Non-labored respirations and equal bilateral excursions. CARDIOVASCULAR: Palpable 2+ radial pulses. ABDOMEN: Soft. Nondistended. Nontender. MUSCULOSKELETAL: No clubbing or cyanosis. NEUROLOGIC: No focal or lateralizing signs. Cranial nerves II through XII grossly intact. PSYCH: Appropriate affect. Alert and oriented to person, place and time. SKIN: Right axilla with wound VAC in place. ASSESSMENT: 1. Right axillary necrotic ulcer 2. Complicated right axillary hidradenitis 3. Failed outpatient antibiotic for hidradenitis 4. Tobacco abuse disorder 5. Generalized anxiety disorder 6. ADD with ADHD PLAN: -Patient can be discharged from surgical standpoint when medically cleared -Awaiting insurance authorization for outpatient wound VAC -IV discharge antibiotics per infectious disease -Patient follow-up with infectious disease after discharge Physician Plant Custodian note has been reviewed by physician. Signing provider agrees with the documented findings, assessment, and plan of care. Objective - Vital Signs Vital signs: Vital Signs Temp 98.1 F 10/01/23 07:01 Pulse 75 10/01/23 07:01 Resp 19 10/01/23 07:01 BP 130/75 10/01/23 07:01 Pulse Ox 98 10/01/23 07:01 FiO2 Intake & Output 09/30/23 10/01/23 10/01/23 18:59 06:59 18:59 Intake Total 1080 350 Balance 1080 350 Intake: Intake, IV Titration 350 Amount Cefepime 2 gm In Sodium 100 Chloride 0.9% 100 ml @ 200 mls/hr IVPB Q8HR [facility] Rx#:[id number] Vancomycin 1,250 mg In 250 Sodium Chloride 0.9% 250 ml @ 125 mls/hr IVPB Q8H [facility] Rx#:[id number] Oral 1080 Other: # Voids 3 2 - Labs CBC & Chem 7: 10/01/23 07:17 09/30/23 05:01 Labs: Abnormal Lab Results - Last 24 Hours (Table) 09/30/23 09/30/23 10/01/23 Range/Units 05:01 05:01 07:17 WBC 10.8 H (3.8-10.6) k/uL RBC 3.70 L (3.80-5.40) m/uL Plt Count 496 H 508 H (150-450) k/uL Sodium 136 L (137-145) mmol/L Microbiology - Last 24 Hours (Table) 09/25/23 15:08 Blood Culture - Final Blood 09/25/23 15:08 Blood Culture - Final Blood
--- NOTE | 2023-10-01 14:59 | P.PN ---
Subjective Progress Note Date: 09/30/23 Principal diagnosis: Right axillary abscess Patient is a 48-year-old female with a past medical history negative for hypertension hyperlipidemia anxiety depression ADHD and did have a history of recurrent skin soft tissue infection especially to the right axillary area, presented to hospital with right ancillary pain swelling redness and abscess with spontaneous drainage. The patient is status post Sharp excisional debridement deep subcutaneous right axilla, 3 x 5 x 5 cm completed on 09/27/2023 On today's evaluation that is 09/30/2023, the patient continues to be afebrile , the patient is breathing comfortably on room air and denies any shortness of breath, the patient denies any chest pain or cough, patient denies abdominal pain and no nausea/vomiting or diarrhea , the patient pain to the right axillary area has decreased in intensity Patient white count is down to 10.8, creatinine 0.57, deep OR cultures are negative however the initial culture grew staph epi that is resistant to clindamycin the Bactrim and doxycycline Objective - Vital Signs Vital signs: Vital Signs Temp 98.2 F 09/30/23 06:42 Pulse 91 09/30/23 06:42 Resp 14 09/30/23 06:42 BP 146/94 09/30/23 06:42 Pulse Ox 98 09/30/23 06:42 FiO2 Intake & Output 09/29/23 09/30/23 09/30/23 18:59 06:59 18:59 Intake Total 1080 Balance 1080 Intake: Oral 1080 Other: # Voids 4 2 1 - Exam GENERAL DESCRIPTION: Middle-aged female lying in bed in no distress RESPIRATORY SYSTEM: Unlabored breathing , clear to auscultation anteriorly HEART: S1 S2 regular rate and rhythm , ABDOMEN: Soft , no tenderness EXTREMITIES: Right axillary wound base looks clean no slough tissue surrounding redness has improved - Labs CBC & Chem 7: 10/01/23 07:17 09/30/23 05:01 Labs: Microbiology - Last 24 Hours (Table) 09/25/23 15:08 Anaerobic Culture - Final Axilla - Right 09/27/23 12:14 Anaerobic Culture - Preliminary Axilla - Right 09/27/23 12:14 Gram Stain - Final Axilla - Right Wound Culture - Final Assessment and Plan (1) Abscess of right axilla Current Visit: Yes Status: Acute Code(s): L02.411 - CUTANEOUS ABSCESS OF RIGHT AXILLA SNOMED Code(s): 27575594 (2) Failure of outpatient treatment Current Visit: Yes Status: Acute Code(s): Z78.9 - OTHER SPECIFIED HEALTH STATUS SNOMED Code(s): 643930212 Plan: 1patient with right axillary abscess with spontaneous drainage likely from gram-positive skin sesar less likely gram-negative infection but that excluded failing outpatient oral doxycycline therapy 2Patient is status post surgical debridement and deep culture, which are currently pending, superficial culture grew staph epi 3-patient continue with vancomycin pharmacy to dose discontinue cefepime as we do not have any oral option patient will need a PICC line and a short course of IV antibiotic on discharge Dictation was produced using [employer] dictation software. please excuse any grammatical, word or spelling errors. Time with Patient: Less than 30
--- NOTE | 2023-10-01 15:00 | P.PN ---
Subjective Progress Note Date: 10/01/23 Principal diagnosis: Right axillary abscess Patient is a 48-year-old female with a past medical history negative for hypertension hyperlipidemia anxiety depression ADHD and did have a history of recurrent skin soft tissue infection especially to the right axillary area, presented to hospital with right ancillary pain swelling redness and abscess with spontaneous drainage. The patient is status post Sharp excisional debridement deep subcutaneous right axilla, 3 x 5 x 5 cm completed on 09/27/2023 On today's evaluation that is 10/01/2023, the patient remains to be afebrile , the patient is breathing comfortably on room air without need for supplemental oxygen, the patient denies any chest pain and no significant cough or sputum production, patient denies abdominal pain and no nausea/vomiting or diarrhea , the patient pain to the right axillary area has improved Patient white count is down to 10.5, creatinine 0.57, deep OR cultures are negative however the initial culture grew staph epi that is resistant to clindamycin the Bactrim and doxycycline Objective - Vital Signs Vital signs: Vital Signs Temp 98.1 F 10/01/23 07:01 Pulse 75 10/01/23 07:01 Resp 19 10/01/23 07:01 BP 130/75 10/01/23 07:01 Pulse Ox 98 10/01/23 07:01 FiO2 Intake & Output 09/30/23 10/01/23 10/01/23 18:59 06:59 18:59 Intake Total 1080 Balance 1080 Intake: Oral 1080 Other: # Voids 3 2 - Exam GENERAL DESCRIPTION: Middle-aged female lying in bed in no distress RESPIRATORY SYSTEM: Unlabored breathing , clear to auscultation anteriorly HEART: S1 S2 regular rate and rhythm , ABDOMEN: Soft , no tenderness EXTREMITIES: Right axillary wound is covered with a wound VAC - Labs CBC & Chem 7: 10/01/23 07:17 09/30/23 05:01 Labs: Abnormal Lab Results - Last 24 Hours (Table) 09/30/23 09/30/23 10/01/23 Range/Units 05:01 05:01 07:17 WBC 10.8 H (3.8-10.6) k/uL RBC 3.70 L (3.80-5.40) m/uL Plt Count 496 H 508 H (150-450) k/uL Sodium 136 L (137-145) mmol/L Microbiology - Last 24 Hours (Table) 09/25/23 15:08 Blood Culture - Final Blood 09/25/23 15:08 Blood Culture - Final Blood Assessment and Plan (1) Abscess of right axilla Current Visit: Yes Status: Acute Code(s): L02.411 - CUTANEOUS ABSCESS OF RIGHT AXILLA SNOMED Code(s): 19191473 (2) Failure of outpatient treatment Current Visit: Yes Status: Acute Code(s): Z78.9 - OTHER SPECIFIED HEALTH STATUS SNOMED Code(s): 999141114 Plan: 1patient with right axillary abscess with spontaneous drainage likely from gram-positive skin sesar less likely gram-negative infection but that excluded failing outpatient oral doxycycline therapy 2Patient is status post surgical debridement and deep culture, which are currently pending, superficial culture grew staph epi 3-patient did get a PICC line plan is to continue with vancomycin pharmacy to dose 2 weeks, prescription was provided to the disability case manager Dictation was produced using [employer] dictation software. please excuse any grammatical, word or spelling errors. Time with Patient: Less than 30
[2023-10-01 16:01] VITALS: BP 123/76; PULSE 88; RESP 14; TEMP 97.9
[2023-10-02] MEDS ORDERED: VANCOMYCIN TROUGH DUE 1 EACH MISC MISCELLANE ONE (04:00)
== END 2023-10-01 16:25 | disposition home or self-care (01) | DRG 710 ==
LOC: EC 13:01 → 4SSUR 16:53
PROVIDERS: ADMIT Student in an Organized Health Care Education/Training Program; ATTEND Student in an Organized Health Care Education/Training Program
PROC: 0JBD0ZZ Excision of Right Upper Arm Subcutaneous Tissue and Fascia, Open Approach (ICD-10-PCS; 2023-09-27)
PROC: 2W1AX6Z Compression of Right Upper Arm using Pressure Dressing (ICD-10-PCS; 2023-09-27)
PROC: 0JD90ZZ Extraction of Buttock Subcutaneous Tissue and Fascia, Open Approach (ICD-10-PCS; principal; 2023-09-27 11:10)
PROC: 02HV33Z Insertion of Infusion Device into Superior Vena Cava, Percutaneous Approach (ICD-10-PCS; 2023-10-01)
PROC: B5181ZA Fluoroscopy of Superior Vena Cava using Low Osmolar Contrast, Guidance (ICD-10-PCS; 2023-10-01)
PROC: B548ZZA Ultrasonography of Superior Vena Cava, Guidance (ICD-10-PCS; 2023-10-01)
DX: A41.1 Sepsis due to other specified staphylococcus (principal); F32.A Depression, unspecified; F41.9 Anxiety disorder, unspecified; F90.9 Attention-deficit hyperactivity disorder, unspecified type; L02.411 Cutaneous abscess of right axilla; L73.2 Hidradenitis suppurativa; D64.9 Anemia, unspecified; E78.5 Hyperlipidemia, unspecified; E87.5 Hyperkalemia; F17.210 Nicotine dependence, cigarettes, uncomplicated; F41.1 Generalized anxiety disorder; I96 Gangrene, not elsewhere classified; I10 Essential (primary) hypertension; Z16.24 Resistance to multiple antibiotics; Z16.29 Resistance to other single specified antibiotic; Z79.2 Long term (current) use of antibiotics; Z79.1 Long term (current) use of non-steroidal anti-inflammatories (NSAID); Z79.899 Other long term (current) drug therapy
CPT/HCPCS: 36415; 36573; 74177; 80048; 80053; 80202; 81025; 82565; 83605; 85025; 85610; 85652; 86140; 87040; 87070; 87075; 87077; 87186; 87205; 88304; 96361; 96365; 96366; 96372; 96375; 96376; 99284

== ENCOUNTER 2023-10-05 13:57 | Emergency (ER) | payer OTHER ==
--- NOTE | 2023-10-05 15:33 | XR ---
EXAMINATION TYPE: XR chest 2V DATE OF EXAM: 10/05/2023 COMPARISON: 12/20/2022 HISTORY: Cough TECHNIQUE: Frontal and lateral views of the chest are obtained. FINDINGS: There is no focal air space opacity, pleural effusion, or pneumothorax seen. The cardiac silhouette size is within normal limits. The osseous structures are intact. IMPRESSION: No acute cardiopulmonary process.
--- NOTE | 2023-10-05 15:33 | ED ---
General Adult HPI - General Chief complaint: Recheck/Abnormal Lab/Rx Stated complaint: blocked port warm to touch Time Seen by Provider: 10/05/23 14:43 Source: patient Mode of arrival: ambulatory Limitations: no limitations - History of Present Illness Initial comments: 48-year-old female presenting with chief complaint of blocked PICC line to the left upper arm. Patient was recently seen and treated our facility for under arm abscess, she has history of IVDA. She was sent home with a PICC line and vancomycin on 10/01. She has not gotten her antibiotic since yesterday. No redness, discharge, swelling or bleeding surrounding the PICC line. Patient additionally has been experiencing cough, congestion, and chills. No abdominal pain, nausea, vomiting, chest pain, difficulty breathing, numbness, tingling, weakness. - Related Data Home Medications Medication Instructions Recorded Confirmed Atomoxetine HCl [Strattera] 60 mg PO DAILY 09/25/23 09/25/23 Naltrexone Microspheres [Vivitrol] 380 mg IM Q28D 09/25/23 09/25/23 Omeprazole 40 mg PO DAILY 09/25/23 09/25/23 Sertraline [Zoloft] 200 mg PO DAILY 09/25/23 09/25/23 hydrOXYzine HCL [Atarax] 25 mg PO TID 09/25/23 09/25/23 traZODone HCL [Desyrel] 100 mg PO HS 09/25/23 09/25/23 Previous Rx's Medication Instructions Recorded Acetaminophen Tab [Tylenol] 650 mg PO Q6HR PRN tab 10/01/23 Cyclobenzaprine [Flexeril] 10 mg PO BID PRN #14 tab 10/01/23 Ibuprofen [Motrin] 800 mg PO TID PRN #90 tab 10/01/23 Vancomycin 1,250 mg IVPB Q8H each 10/01/23 Allergies Allergy/AdvReac Type Severity Reaction Status Date / Time No Known Allergies Allergy Verified 10/05/23 14:30 Review of Systems ROS Statement: Those systems with pertinent positive or pertinent negative responses have been documented in the HPI. ROS Other: All systems not noted in ROS Statement are negative. Past Medical History Past Medical History: Hyperlipidemia, Hypertension History of Any Multi-Drug Resistant Organisms: None Reported Past Surgical History: No Surgical Hx Reported Additional Past Surgical History / Comment(s): I&D to rt axilla Past Anesthesia/Blood Transfusion Reactions: No Reported Reaction Past Psychological History: ADD/ADHD, Anxiety, Depression Smoking Status: Current every day smoker Past Alcohol Use History: Occasional Past Drug Use History: Marijuana General Exam Limitations: no limitations General appearance: alert, in no apparent distress Head exam: Present: atraumatic, normocephalic, normal inspection Eye exam: Present: normal appearance, EOMI Neck exam: Present: normal inspection, full ROM Respiratory exam: Present: normal lung sounds bilaterally. Absent: respiratory distress, wheezes, rales, rhonchi, stridor Cardiovascular Exam: Present: regular rate, normal rhythm, normal heart sounds. Absent: systolic murmur, diastolic murmur, rubs, gallop, clicks Neurological exam: Present: alert, oriented X3 Psychiatric exam: Present: normal affect, normal mood Skin exam: Present: warm, dry, intact, normal color. Absent: rash Course Vital Signs 10/05/23 10/05/23 14:27 17:09 Temperature 99.0 F 98.3 F Pulse Rate 117 H 105 H Respiratory 20 18 Rate Blood Pressure 128/75 133/80 O2 Sat by Pulse 98 99 Oximetry Medical Decision Making - Medical Decision Making Was pt. sent in by a medical professional or institution (, PA, MECHANICAL LABORATORY TECHNICIAN, urgent care, hospital, or retirement...) When possible be specific @ -No Did you speak to anyone other than the patient for history (EMS, parent, family, police, friend...)? What history was obtained from this source @ -No Did you review nursing and triage notes (agree or disagree)? Why? @ -I reviewed and agree with nursing and triage notes Were old charts reviewed (outside hosp., previous admission, EMS record, old EKG, old radiological studies, urgent care reports/EKG's, retirement records)? Report findings @ -No old charts were reviewed Differential Diagnosis (chest pain, altered mental status, abdominal pain women, abdominal pain men, vaginal bleeding, weakness, fever, dyspnea, syncope, headache, dizziness, GI bleed, back pain, seizure, CVA, palpatations, mental health, musculoskeletal)? @ -Differential includes influenza, RSV, Covid, pneumonia, this is not an all inclusive list EKG interpreted by me (3pts min.). @ -As above X-rays interpreted by me (1pt min.). @ -Chest x-ray shows no acute cardiopulmonary process CT interpreted by me (1pt min.). @ -None done U/S interpreted by me (1pt. min.). @ -None done What testing was considered but not performed or refused? (CT, X-rays, U/S, labs)? Why? @ -None What meds were considered but not given or refused? Why? @ -None Did you discuss the management of the patient with other professionals (professionals i.e. , PA, MECHANICAL LABORATORY TECHNICIAN, lab, RT, psych nurse, social and human services assistant, manager fiber, teacher, chief information officer, telephonic nurse case manager)? Give summary @ -No Was smoking cessation discussed for >3mins.? @ -No Was critical care preformed (if so, how long)? @ -No Were there social determinants of health that impacted care today? How? (Homelessness, low income, unemployed, alcoholism, drug addiction, transportation, low edu. Level, literacy, decrease access to med. care, snf, rehab)? @ -No Was there de-escalation of care discussed even if they declined (Discuss DNR or withdrawal of care, Hospice)? DNR status @ -No What co-morbidities impacted this encounter? (DM, HTN, Smoking, COPD, CAD, Cancer, CVA, ARF, Chemo, Hep., AIDS, mental health diagnosis, sleep apnea, morbid obesity)? @ -None Was patient admitted / discharged? Hospital course, mention meds given and route, prescriptions, significant lab abnormalities, going to OR and other pertinent info. @ -48-year-old female presenting with chief complaint of blocked PICC line. She is also complaining of cough congestion and chills. On physical exam there does not appear to be any redness, swelling, induration, or discharge surrounding the PICC line. No tenderness. Heart and lungs are clear to auscultation. Cathflo was administered and PICC line is easily flushed afterwards. Chest x-ray shows no acute cardio pulmonary process. Patient is positive for influenza A. Patient is educated on today's findings and supportive management at home. Follow-up with PCP. Report back to ER with any new or worsening symptoms. Discussed return parameters and answered all questions. Patient conveyed verbal understanding and agreed to the plan. I discussed this case in detail with my attending Dr. Kramer Undiagnosed new problem with uncertain prognosis? @ -No Drug Therapy requiring intensive monitoring for toxicity (Heparin, Nitro, Insulin, Cardizem)? @ -No Were any procedures done? @ -No Diagnosis/symptom? @ -Influenza A, occluded PICC line Acute, or Chronic, or Acute on Chronic? @ -Acute Uncomplicated (without systemic symptoms) or Complicated (systemic symptoms)? @ -Uncomplicated Side effects of treatment? @ -No Exacerbation, Progression, or Severe Exacerbation? @ -No Poses a threat to life or bodily function? How? (Chest pain, [place], AR, pneumonia, PE, COPD, DKA, ARF, appy, cholecystitis, CVA, Diverticulitis, Homicidal, Suicidal, threat to staff... and all critical care pts) @ -No - Lab Data Lab Results 10/05/23 Range/Units 14:56 Influenza Type A (PCR) Detected A (Not Detectd) Influenza Type B (PCR) Not Detected (Not Detectd) RSV (PCR) Not Detected (Not Detectd) SARS-CoV-2 (PCR) Not Detected (Not Detectd) Disposition Clinical Impression: Occluded PICC line, Influenza A Disposition: HOME SELF-CARE Condition: Good Instructions (If sedation given, give patient instructions): Influenza (ED), How to Care for Your PICC (Peripherally Inserted Central Catheter) (ED), How to Flush Your PICC (Peripherally Inserted Central Catheter) (ED) Additional Instructions: Follow-up with PCP. Report back to ER with any new or worsening symptoms. Take Motrin and Tylenol as needed for pain and fever control. Is patient prescribed a controlled substance at d/c from ED?: No Referrals: Neal Paris MD [Primary Care Provider] - 1-2 days Time of Disposition: 16:50
[2023-10-05] MEDS ORDERED: ALTEPLASE 2 MG VIAL (CATHFLO) IV STA ×2 (15:41→15:53)
[2023-10-05] MEDS ORDERED: IBUPROFEN 400 MG TAB PO STA (16:44)
[2023-10-05] MEDS ORDERED: ACETAMINOPHEN TAB 325 MG TAB PO STA (16:44)
[2023-10-05 17:25] VITALS: BP 133/80; PULSE 105; RESP 18; TEMP 98.3
== END 2023-10-05 17:10 | disposition home or self-care (01) ==
LOC: EC 13:57
DX: T82.594A Other mechanical complication of infusion catheter, initial encounter (principal); B95.0 Streptococcus, group A, as the cause of diseases classified elsewhere; I10 Essential (primary) hypertension; F41.9 Anxiety disorder, unspecified; F32.A Depression, unspecified; F17.200 Nicotine dependence, unspecified, uncomplicated; F12.90 Cannabis use, unspecified, uncomplicated; Z79.899 Other long term (current) drug therapy; Z20.822 Contact with and (suspected) exposure to COVID-19
CPT/HCPCS: 87636; 71046; 99283; 37195; J2997

== ENCOUNTER 2023-11-12 16:24 | Emergency (ER) | payer OTHER ==
--- NOTE | 2023-11-12 17:03 | ED ---
General Adult HPI - General Source: patient, RN notes reviewed Mode of arrival: ambulatory <Jennie Duarte - Last Filed: 11/12/23 17:02> <Dora Rankin - Last Filed: 11/14/23 01:53> - General Chief complaint: Anxiety Stated complaint: ANXIETY Time Seen by Provider: 11/12/23 17:02 - History of Present Illness Initial comments: 48-year-old female presents to the emergency department for chief complaint of shortness of breath. She states that this is been going on for about a week and a half. She was sent in by [facility] for abnormal vital signs. (Jennie Duarte) 48-year-old female presenting with chief complaint of anxiety. Patient states that she has been feeling short of breath today and has had headache. She states that she has had several stressful events recently, including surgery and a divorce. She was seen at [facility] today was sent in for abnormal vitals. Patient states that this has been ongoing for about a week. Patient recently also had an axillary abscess incised and drained, she is having some recurrence of tenderness to the area. No chest pain. No fevers or chills. No cough, congestion, sore throat, nausea, vomiting. No numbness, tingling, weakness. (Dora Rankin) - Related Data Home Medications Medication Instructions Recorded Confirmed Atomoxetine HCl [Strattera] 60 mg PO DAILY 09/25/23 09/25/23 Naltrexone Microspheres [Vivitrol] 380 mg IM Q28D 09/25/23 09/25/23 Omeprazole 40 mg PO DAILY 09/25/23 09/25/23 Sertraline [Zoloft] 200 mg PO DAILY 09/25/23 09/25/23 hydrOXYzine HCL [Atarax] 25 mg PO TID 09/25/23 09/25/23 traZODone HCL [Desyrel] 100 mg PO HS 09/25/23 09/25/23 Previous Rx's Medication Instructions Recorded Acetaminophen Tab [Tylenol] 650 mg PO Q6HR PRN tab 10/01/23 Cyclobenzaprine [Flexeril] 10 mg PO BID PRN #14 tab 10/01/23 Ibuprofen [Motrin] 800 mg PO TID PRN #90 tab 10/01/23 Vancomycin 1,250 mg IVPB Q8H each 10/01/23 Cephalexin [Keflex] 500 mg PO Q6HR 7 Days #28 cap 11/12/23 LORazepam [Ativan] 1 mg PO HS PRN 3 Days #3 tab 11/12/23 Allergies Allergy/AdvReac Type Severity Reaction Status Date / Time No Known Allergies Allergy Verified 10/05/23 14:30 Review of Systems ROS Other: All systems not noted in ROS Statement are negative. <Jennie Duarte - Last Filed: 11/12/23 17:02> ROS Other: All systems not noted in ROS Statement are negative. <Dora Rankin - Last Filed: 11/14/23 01:53> ROS Statement: Those systems with pertinent positive or pertinent negative responses have been documented in the HPI. Past Medical History Past Medical History: Hyperlipidemia, Hypertension History of Any Multi-Drug Resistant Organisms: None Reported Past Surgical History: No Surgical Hx Reported Additional Past Surgical History / Comment(s): I&D to rt axilla Past Anesthesia/Blood Transfusion Reactions: No Reported Reaction Past Psychological History: ADD/ADHD, Anxiety, Depression Smoking Status: Current every day smoker Past Alcohol Use History: Occasional Past Drug Use History: Marijuana <Jennie Duarte - Last Filed: 11/12/23 17:02> General Exam <Jennie Duarte - Last Filed: 11/12/23 17:02> Limitations: no limitations General appearance: alert, in no apparent distress Head exam: Present: atraumatic, normocephalic, normal inspection Eye exam: Present: normal appearance, EOMI Neck exam: Present: normal inspection, full ROM Respiratory exam: Present: normal lung sounds bilaterally. Absent: respiratory distress, wheezes, rales, rhonchi, stridor Cardiovascular Exam: Present: regular rate, normal rhythm, normal heart sounds. Absent: systolic murmur, diastolic murmur, rubs, gallop, clicks Neurological exam: Present: alert, oriented X3 Psychiatric exam: Present: anxious Skin exam: Present: warm, dry, intact, erythema (There is very mild erythema to the right axilla, quarter-sized affected area). Absent: rash <Dora Rankin - Last Filed: 11/14/23 01:53> - General Exam Comments Initial Comments: Visual Physical Exam Vital signs reviewed General: Well-appearing, nontoxic, no acute distress. Head: Normocephalic, atraumatic Eyes: PERRLA, EOMI ENT: Airway patent Chest: Nonlabored breathing Skin: No visual rash, normal skin tone Neuro: Alert and oriented 3 Musculoskeletal: No gross abnormalities (Jennie Duarte) Course Vital Signs 11/12/23 11/12/23 16:26 23:48 Temperature 97.7 F 98.8 F Pulse Rate 102 H 82 Respiratory 18 20 Rate Blood Pressure 139/86 142/84 O2 Sat by Pulse 93 L 94 L Oximetry Medical Decision Making <Jennie Duarte - Last Filed: 11/12/23 17:02> <Dora Rankin - Last Filed: 11/14/23 01:53> - Medical Decision Making Quick note performed by Jennie Duarte PA-C (Jennie Duarte) Was pt. sent in by a medical professional or institution (FRANCIA Hassan, CHEF KITCHEN MANAGER, urgent care, hospital, or fci...) When possible be specific @ -No Did you speak to anyone other than the patient for history (EMS, parent, family, police, friend...)? What history was obtained from this source @ -No Did you review nursing and triage notes (agree or disagree)? Why? @ -I reviewed and agree with nursing and triage notes Were old charts reviewed (outside hosp., previous admission, EMS record, old EKG, old radiological studies, urgent care reports/EKG's, fci records)? Report findings @ -No old charts were reviewed Differential Diagnosis (chest pain, altered mental status, abdominal pain women, abdominal pain men, vaginal bleeding, weakness, fever, dyspnea, syncope, headache, dizziness, GI bleed, back pain, seizure, CVA, palpatations, mental health, musculoskeletal)? @ -Differential includes anxiety, influenza, RSV, Covid, pneumonia, bronchitis, pneumothorax, this is not an all inclusive list EKG interpreted by me (3pts min.). @ -EKG shows sinus rhythm ventricular rate 84. LA interval 124. QRS 76. QT 427. QTC 468. X-rays interpreted by me (1pt min.). @ -Chest x-ray shows no acute cardiopulmonary disease/process CT interpreted by me (1pt min.). @ -None done U/S interpreted by me (1pt. min.). @ -None done What testing was considered but not performed or refused? (CT, X-rays, U/S, labs)? Why? @ -None What meds were considered but not given or refused? Why? @ -None Did you discuss the management of the patient with other professionals (professionals i.e. , PA, CHEF KITCHEN MANAGER, lab, RT, psych nurse, director of social work, claim processing specialist, teacher, desk officer, pillowcase folder)? Give summary @ -No Was smoking cessation discussed for >3mins.? @ -No Was critical care preformed (if so, how long)? @ -No Were there social determinants of health that impacted care today? How? (Homelessness, low income, unemployed, alcoholism, drug addiction, transportation, low edu. Level, literacy, decrease access to med. care, fci, rehab)? @ -No Was there de-escalation of care discussed even if they declined (Discuss DNR or withdrawal of care, Hospice)? DNR status @ -No What co-morbidities impacted this encounter? (DM, HTN, Smoking, COPD, CAD, Cancer, CVA, ARF, Chemo, Hep., AIDS, mental health diagnosis, sleep apnea, morbid obesity)? @ -None Was patient admitted / discharged? Hospital course, mention meds given and route, prescriptions, significant lab abnormalities, going to OR and other pertinent info. @ -48-year-old female presenting with chief complaint of anxiety. Patient was experiencing some shortness of breath and headache today. Patient also was complaining of some tenderness at the site of a recently incised abscess. History and physical examination are conducted. There is a quarter-sized area of erythema to the right axilla. Heart and lungs are clear to auscultation. Patient is negative for influenza, RSV, Covid. Chest x-rays negative for acute process. Patient is treated with Tylenol, Motrin, Ativan, and Zofran. On reassessment she reports improvement in her symptoms. I told the patient that we will treat for possible cellulitis empirically with Keflex and she is to follow-up with her surgeon and PCP. Follow-up with PCP. Report back to ER with any new or worsening symptoms. Discussed return parameters and answered all questions. Patient conveyed verbal understanding and agreed to the plan. I discussed this case in detail with my attending Dr. Rizo Undiagnosed new problem with uncertain prognosis? @ -No Drug Therapy requiring intensive monitoring for toxicity (Heparin, Nitro, Insulin, Cardizem)? @ -No Were any procedures done? @ -No Diagnosis/symptom? @ -Anxiety Acute, or Chronic, or Acute on Chronic? @ -Acute on chronic Uncomplicated (without systemic symptoms) or Complicated (systemic symptoms)? @ -Complicated Side effects of treatment? @ -No Exacerbation, Progression, or Severe Exacerbation? @ -No (Dora Rankin) - Lab Data Lab Results 11/12/23 Range/Units 22:03 Influenza Type A (PCR) Not Detected (Not Detectd) Influenza Type B (PCR) Not Detected (Not Detectd) RSV (PCR) Not Detected (Not Detectd) SARS-CoV-2 (PCR) Not Detected (Not Detectd) Disposition <Jennie Duarte - Last Filed: 11/12/23 17:02> Is patient prescribed a controlled substance at d/c from ED?: Yes When asked, does pt state using other controlled substances?: No If prescribed controlled substance>3 days was MAPS reviewed?: Prescribed <3 Days Time of Disposition: :23 <Dora Rankin - Last Filed: 11/14/23 01:53> Clinical Impression: Acute anxiety Disposition: HOME SELF-CARE Condition: Good Instructions (If sedation given, give patient instructions): Generalized Anxiety Disorder (ED) Additional Instructions: Follow-up with your surgeon and [facility]. Report back to ER with any new or worsening symptoms. Prescriptions: LORazepam [Ativan] 1 mg PO HS PRN 3 Days #3 tab PRN Reason: Anxiety Cephalexin [Keflex] 500 mg PO Q6HR 7 Days #28 cap Referrals: Neal Paris MD [Primary Care Provider] - 1-2 days
[2023-11-12] MEDS ORDERED: ACETAMINOPHEN TAB 325 MG TAB PO STA (20:44)
[2023-11-12] MEDS ORDERED: LORazepam 1 MG TAB PO STA (20:44)
[2023-11-12] MEDS ORDERED: IBUPROFEN 600 MG TAB PO STA (20:44)
--- NOTE | 2023-11-12 21:28 | XR ---
EXAMINATION TYPE: XR chest 2V DATE OF EXAM: 11/12/2023 9:25 PM CLINICAL INDICATION:Female, 48 years old with history of SOB; [facility] COMPARISON: Chest radiographs from 10/05/2023 TECHNIQUE: XR chest 2V Frontal and lateral views of the chest. FINDINGS: Lungs/Pleura: There is no evidence of pleural effusion, focal consolidation, or pneumothorax. Pulmonary vascularity: Unremarkable. Heart/mediastinum: Cardiomediastinal silhouette is unremarkable. Musculoskeletal: No acute osseous pathology. IMPRESSION: No acute cardiopulmonary disease/process.
[2023-11-12] MEDS ORDERED: ONDANSETRON ODT 4 MG TAB PO STA (22:03)
[2023-11-13 00:11] VITALS: BP 142/84; PULSE 82; RESP 20; TEMP 98.8
== END 2023-11-12 23:51 | disposition home or self-care (01) ==
LOC: EC 16:24
DX: F41.9 Anxiety disorder, unspecified (principal); I10 Essential (primary) hypertension; F90.9 Attention-deficit hyperactivity disorder, unspecified type; F32.A Depression, unspecified; F17.200 Nicotine dependence, unspecified, uncomplicated; F12.90 Cannabis use, unspecified, uncomplicated; Z79.899 Other long term (current) drug therapy; Z20.822 Contact with and (suspected) exposure to COVID-19
CPT/HCPCS: 71046; 87636; 93005; 99284

== ENCOUNTER → 2024-04-17 | Outpatient (CLI) | payer OTHER ==
[2024-04-17 15:41] LABS: ALT 53 U/L (8-44); AST 38 U/L (13-35); Albumin 4.1 g/dL (3.8-4.9); Albumin/Globulin Ratio 1.37 Ratio (1.60-3.17); Alkaline Phosphatase 88 U/L (41-126); Blood Urea Nitrogen 18.1 mg/dL (9.0-27.0); Calcium 9.8 mg/dL (8.7-10.3); Chloride 104 mmol/L (96-109); Glucose 97 mg/dL (70-110); Potassium 5.1 mmol/L (3.5-5.5); Sodium 140 mmol/L (135-145); Total Bilirubin <0.2 mg/dL (0.3-1.2); Total Protein 7.1 g/dL (6.2-8.2)
[2024-04-17 15:53] LABS: Hepatitis B Surface Antigen Nonreactive (Nonreactive)
[2024-04-17 18:20] LABS: Gliadin AB IgA, Deaminated Negative (Negative); Gliadin AB IgA, Unit <0.5 U/mL; Gliadin AB IgG, Deaminated Negative (Negative); Gliadin AB IgG, Unit <0.4 U/mL
== END | disposition home or self-care (01) ==
LOC: LABWHC1 09:14
PROVIDERS: ATTEND Internal Medicine Gastroenterology
DX: R19.4 Change in bowel habit (principal); Z86.19 Personal history of other infectious and parasitic diseases
CPT/HCPCS: 36415; 80053; 83516; 85652; 86140; 86704; 87340; 87522

== ENCOUNTER → 2024-04-17 | Outpatient (CLI) | payer OTHER ==
--- NOTE | 2024-04-18 03:30 | US ---
EXAMINATION TYPE: US abdomen complete DATE OF EXAM: 04/17/2024 COMPARISON: CT abdomen and pelvis 09/28/2023 CLINICAL INDICATION: Female, 48 years old with history of Z86.19 HX INFECTIOUS PARASITIC DISEASE; Epi gastric pain, nausea, hepatitis TECHNIQUE: Multiple sonographic images of the abdomen are obtained. FINDINGS: EXAM MEASUREMENTS: Liver Length: 14.4 cm Gallbladder Wall: 0.2 cm CBD: 0.3 cm Spleen: 10.9 cm Right Kidney: 9.3 x 4.5 x 4.4 cm Left Kidney: 10.2 x 5.2 x 4.1 cm SHOTGUN SHELL ASSEMBLY MACHINE OPERATOR NOTES: Technical limitations due to large amount of overlying bowel gas Pancreas: Tail obscured by overlying bowel gas Liver: visualized portions appear wnl Gallbladder: adenomyomatosis Evidence for sonographic Prater's sign: no CBD: wnl Spleen: wnl Right Kidney: no evidence of hydronephrosis Left Kidney: no evidence of hydronephrosis Upper IVC: wnl Abd Aorta: wnl The liver is homogenous. No focal lesion identified. Noncirrhotic morphology. The intrahepatic porti on of the IVC and proximal abdominal aorta are within normal limits. There is no evidence of choleli thiasis. Adenomyomatosis is demonstrated with comet tail artifact. No gallbladder wall thickening or surrounding fluid. Common bile duct is unremarkable. The visualized portions of the pancreas are ho mogenous. The tail is obscured by overlying bowel gas. The spleen is unremarkable. Kidneys are symme tric and free of hydronephrosis. No renal lesions are seen. IMPRESSION: Limited examination due to overlying bowel gas 1. No acute process. 2. Adenomyomatosis of the gallbladder.
== END | disposition home or self-care (01) ==
LOC: RADUSWWP 08:37
PROVIDERS: ATTEND Internal Medicine Gastroenterology
DX: D13.5 Benign neoplasm of extrahepatic bile ducts (principal); K75.9 Inflammatory liver disease, unspecified; Z86.19 Personal history of other infectious and parasitic diseases
CPT/HCPCS: 76700

== ENCOUNTER → 2024-05-05 | Outpatient (CLI) | payer OTHER ==
[2024-05-05 13:56] VITALS: BP 121/83; PULSE 104; RESP 16; TEMP 97.5
--- NOTE | 2024-05-05 14:27 | P.SLEEP ---
History of Present Illness H&P Date: 05/05/24 There is a 48-year-old female patient who wanted to have a pulmonary and sleep evaluation with me upon the request of the primary care physician. The sleep evaluation is to be done today and the pulmonary evaluation will be done at a later stage in the pulmonary clinic. In terms of her sleep, the patient has chronic fatigue and daytime sleepiness for many years. He has a recovering alcoholic and she has been alcohol free for the past 1 year. Prior to that, she used to drink excessively. Told that has used methamphetamine for many years and she is currently drug-free. He smokes approximately 3 joints of marijuana on daily basis. This helps her with her chronic anxiety and pain. Is known to have chronic anxiety/depression/bipolar disorder. Hydroxyzine 25 mg 3 times daily, Zoloft 100 mg p.o. daily and Abilify 10 mg p.o. daily. She was diagnosed also having ADHD started on Strattera by her primary care physician. Is currently taking Strattera 60 mg p.o. daily. She has also sleep disturbance and difficulties initiating sleep. She has been maintained on trazodone 150 mg at bedtime. She suffers from chronic pain, maintained on a combination of Motrin and Flexeril. She has chronic body aches and back pain. She has also hidradenitis suppurativa and she had a recent hospitalization for an infected axillary abscess requiring incision and drainage and IV antibiotics. In terms of her sleep, the patient is sleeps excessivly and despite that she does not get the adequate refreshment. She goes to bed at around 11:30 PM and she wakes up 8 to 9 AM in the morning. She wakes up few times in the middle of the night to urinate. She is restless in her sleep. She tosses and turns and she will occasionally talks few sentences. She does grind her teeth. According to the partner, she has history of snoring. Apneas have been noted on those days when she feels excessively fatigued and tired. No sleep paralysis. No hallucinations. No cataplexy. Her current [place] score is at 10. No nighttime chest pain or heartburn. She has chronic cough, chest congestion and exertional dyspnea. She smokes 1/2 pack of cigarettes a day. She drinks coffee in the morning and she also relies on energy drinks including red bull. No significant weight gain over the years. Her weight has been up by around 10 pounds over the past 5 to 10 years. Review of Systems Constitutional: Reports daytime sleepiness, Reports fatigue Eyes: denies as per HPI, denies blurred vision, denies bulging eye, denies decreased vision, denies diplopia, denies discharge, denies dry eye, denies irritation, denies itching, denies pain, denies photophobia, denies loss of peripheral vision, denies loss of vision, denies tunnel vision/blind spots Ears: deny: decreased hearing, ear discharge, earache, tinnitus Ears, nose, mouth and throat: Reports as per HPI Breasts: absent: as per HPI, change in shape, gynecomastia, masses, nipple discharge, pain, skin changes, swelling Cardiovascular: Reports as per HPI Respiratory: Reports cough, Reports dyspnea, Reports sleep apnea, Reports snoring Gastrointestinal: Reports as per HPI Genitourinary: Reports as per HPI Menstruation: Reports as per HPI Musculoskeletal: Reports as per HPI Musculoskeletal: absent: ankle pain, ankle stiffness, ankle swelling Integumentary: Reports as per HPI (Hidradenitis suppurativa), Reports wounds Neurological: Reports as per HPI Psychiatric: Reports anxiety, Reports change in sleep habits, Reports depression, Reports hypersomnia, Reports insomnia, Reports irritability, Reports mood swings, Reports sleep disturbances Endocrine: Reports as per HPI, Reports excessive thirst Hematologic/Lymphatic: Reports as per HPI Allergic/Immunologic: Reports as per HPI Past Medical History Past Medical History: GERD/Reflux, Hyperlipidemia, Hypertension, Skin Disorder (Hidradenitis suppurativa) Additional Past Medical History / Comment(s): Sinus Headaches, headaches, insomnia, ulcers, mental illiness, restless legs History of Any Multi-Drug Resistant Organisms: None Reported Past Surgical History: No Surgical Hx Reported Additional Past Surgical History / Comment(s): I&D to rt axilla Past Anesthesia/Blood Transfusion Reactions: No Reported Reaction Past Psychological History: ADD/ADHD, Anxiety, Depression Smoking Status: Current every day smoker Past Alcohol Use History: Occasional Additional Past Alcohol Use History / Comment(s): 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, gets vivirtral injections Past Drug Use History: Marijuana - Past Family History Mother Family Medical History: Asthma, Coronary Artery Disease (CAD), Hyperlipidemia, Hypertension, Rheumatoid Arthritis (RA) Additional Family Medical History / Comment(s): emphysema, anemia Father Family Medical History: Asthma, Coronary Artery Disease (CAD), Hypertension Additional Family Medical History / Comment(s): bronchitis, snoring Medications and Allergies Home Medications Medication Instructions Recorded Confirmed Type Atomoxetine HCl [Strattera] 60 mg PO DAILY 09/25/23 05/05/24 History Naltrexone Microspheres [Vivitrol] 380 mg IM Q28D 09/25/23 09/25/23 History Omeprazole 40 mg PO DAILY 09/25/23 05/05/24 History Sertraline [Zoloft] 200 mg PO DAILY 09/25/23 05/05/24 History hydrOXYzine HCL [Atarax] 25 mg PO TID 09/25/23 05/05/24 History traZODone HCL [Desyrel] 100 mg PO HS 09/25/23 05/05/24 History Acetaminophen Tab [Tylenol] 650 mg PO Q6HR PRN tab 10/01/23 Rx Cyclobenzaprine [Flexeril] 10 mg PO BID PRN #14 tab 10/01/23 05/05/24 Rx Ibuprofen [Motrin] 800 mg PO TID PRN #90 tab 10/01/23 05/05/24 Rx Vancomycin 1,250 mg IVPB Q8H each 10/01/23 Rx Cephalexin [Keflex] 500 mg PO Q6HR 7 Days #28 cap 11/12/23 Rx LORazepam [Ativan] 1 mg PO HS PRN 3 Days #3 tab 11/12/23 Rx ARIPiprazole 10 mg PO HS 05/05/24 05/05/24 History ARIPiprazole [Abilify] 2 mg PO DAILY 05/05/24 05/05/24 History Doxycycline [Vibramycin] 100 mg PO BID 05/05/24 05/05/24 History Ergocalciferol [Vitamin D2 (1250 1,250 mcg PO DAILY 05/05/24 05/05/24 History Mcg = 58002 Iu)] Ondansetron [Zofran] 4 mg PO DAILY 05/05/24 05/05/24 History Sofosbuvir/Velpatasvir [Epclusa 400 mg PO HS 05/05/24 05/05/24 History 400 mg-100 mg Tablet] cloNIDine HCL 0.2 mg PO DAILY 05/05/24 05/05/24 History Allergies Allergy/AdvReac Type Severity Reaction Status Date / Time No Known Allergies Allergy Verified 10/05/23 14:30 Physical Exam Vitals: Vital Signs Temp Pulse Resp BP Pulse Ox 05/05/24 13:54 97.5 F L 104 H 16 121/83 96 Intake and Output 05/04/24 05/05/24 05/05/24 22:59 06:59 14:59 Other: Weight 75.75 kg General appearance the patient is calm and comfortable and she is not in acute respiratory distress. She is a little restless and she loses focus while having a conversation. Head exam was generally normal. There was no scleral icterus or corneal arcus. M ucous membranes were moist. Neck was supple and without jugular venous distension, thyromegaly, or carotid bruits. Carotids were easily palpable bilaterally. There was no adenopathy. The patient has a Mallampati class IV with significant crowding of the posterior pharynx. Lungs were clear to auscultation and percussion, and with normal diaphragmatic excursion. No wheezes or rales were noted. Cardiac exam revealed the PMI to be normally situated and sized. The rhythm was regular and no extrasystoles were noted during several minutes of auscultation. The first and second heart sounds were normal and physiologic splitting of the second heart sound was noted. There were no murmurs, rubs, clicks, or gallops. Abdominal exam revealed normal bowel sounds. The abdomen was soft, non-tender, and without masses, organomegaly, or appreciable enlargement of the abdominal aorta. Examination of the extremities revealed easily palpable radial, femoral and pedal pulses. There was no cyanosis, clubbing or edema. Examination of the skin revealed evidence of chronic scarring and abscess formation over the chest and axillary area consistent with hidradenitis suppurativa Neurologically, the patient is awake and alert and the patient does not have any focal neurological deficit. Cranial nerves are essentially intact. Psychiatrically, the patient has increased anxiety, depression, bipolar disorder Assessment and Plan Plan: Chronic fatigue/sleepiness with an [place] score of 10, currently under investigation. Exact cause is not clear. Obviously the patient sleep quality needs to be evaluated. She is known to have multiple comorbidities. Of significance is her history of polysubstance abuse which included alcoholism and methamphetamine abuse for many years and the patient has been clean for the past 1 year. She continues to smoke marijuana. She is a chronic smoker. She also has issues with increased anxiety and depression and bipolar disorder and she is on a combination of medications treating her anxiety and depression and she takes trazodone overnight for sleep induction and maintenance. Rule out underlying sleep breathing disorder. Rule out underlying restless leg syndrome. Chronic anxiety/depression History of bipolar disorder Hidradenitis suppurativa Hypertension Chronic back pain History of ADHD and currently the patient on Strattera 60 mg p.o. daily History of polysubstance abuse including history of alcoholism and methamphetamine abuse. Plan Will need a screening polysomnography to evaluate the sleep quality and architecture Continue same medications Implement good sleep hygiene measures A pulmonary evaluation will be done separately as the patient has symptoms of chronic cough and congestion and shortness of breath and she is a chronic smoker. Will continue to follow. Sleep Note - Sleep Data ESS Total: 10 - Sleep Note Sleep Note: Temperature: 97.5 F Pulse Rate: 104 Respiratory Rate: 16 Blood Pressure: 121/83 SpO2: 96 Height: 5 ft 4 in Weight: 75.75 kg BMI: Neck Circumference: 14.5
== END ==
LOC: 3 N SLEEP 13:15
PROVIDERS: ATTEND Internal Medicine Critical Care Medicine
DX: G47.10 Hypersomnia, unspecified (principal); R53.82 Chronic fatigue, unspecified; F12.90 Cannabis use, unspecified, uncomplicated; F17.200 Nicotine dependence, unspecified, uncomplicated; F31.9 Bipolar disorder, unspecified; F41.9 Anxiety disorder, unspecified; I10 Essential (primary) hypertension; G89.29 Other chronic pain; L73.2 Hidradenitis suppurativa; F90.9 Attention-deficit hyperactivity disorder, unspecified type; Z86.59 Personal history of other mental and behavioral disorders; Z79.899 Other long term (current) drug therapy
CPT/HCPCS: 99211

== ENCOUNTER → 2024-08-21 | Outpatient (CLI) | payer OTHER ==
[2024-08-21 15:03] LABS: Basophils # (A) 0.05 X 10*3/uL (0.00-0.10); Basophils % (A) 0.5 %; Eosinophils # (A) 0.36 X 10*3/uL (0.04-0.35); Eosinophils % (A) 3.7 %; HCT 37.6 % (37.2-46.3); Lymphocytes # (A) 4.24 X 10*3/uL (0.90-5.00); Lymphocytes % (A) 43.8 %; MCH 30.6 pg (27.0-32.0); MCHC 34.6 g/dL (32.0-37.0); MCV 88.5 FL (80.0-97.0); Mean Platelet Volume 10.4 FL (9.5-12.2); Monocytes # (A) 0.71 X 10*3/uL (0.20-1.00); Monocytes % (A) 7.3 %; NRBC Per 100 WBC 0 X 10*3/uL (0.00-0.01); Neutrophils # (A) 4.29 X 10*3/uL (1.80-7.70); Neutrophils % (A) 44.5 %; Platelet Count 433 X 10*3/uL (140-440); RBC 4.25 X 10*6/uL (4.10-5.20); RDW 13.8 % (11.5-14.5); WBC 9.67 X 10*3/uL (4.50-10.00)
[2024-08-21 20:06] LABS: ALT 15 U/L (8-44); AST 21 U/L (13-35); Albumin 4.1 g/dL (3.8-4.9); Albumin/Globulin Ratio 1.37 Ratio (1.60-3.17); Alkaline Phosphatase 87 U/L (41-126); BUN/Creat Ratio 12.89 Ratio (12.00-20.00); Blood Urea Nitrogen 11.6 mg/dL (9.0-27.0); Calcium 9.3 mg/dL (8.7-10.3); Chloride 105 mmol/L (96-109); Glucose 100 mg/dL (70-110); Potassium 4.5 mmol/L (3.5-5.5); Sodium 139 mmol/L (135-145); Total Bilirubin 0.2 mg/dL (0.3-1.2); Total Protein 7.1 g/dL (6.2-8.2)
== END ==
LOC: LABWHC1 10:57
PROVIDERS: ATTEND Internal Medicine Gastroenterology
DX: B18.2 Chronic viral hepatitis C (principal)
CPT/HCPCS: 36415; 80053; 81596; 85025; 87522

== ENCOUNTER 2024-09-25 11:01 | Emergency (ER) | payer OTHER ==
[2024-09-25 11:11] VITALS: TEMP 97.6
--- NOTE | 2024-09-25 11:15 | ED ---
Abdominal Pain HPI - General Chief Complaint: Abdominal Pain Stated Complaint: NVD, Lower rt quadrant pain Time Seen by Provider: 09/25/24 11:14 Source: patient, RN notes reviewed Mode of arrival: ambulatory Limitations: no limitations - History of Present Illness Initial Comments: 49-year-old female presents the emergency department chief complaint of right lower quadrant abdominal pain, nausea and vomiting over the past 3 days. States the pain originally started right lower quadrant is migrated to her umbilicus. She has been having multiple episodes of emesis per day as well. She takes Zofran at home with minimal relief. She denies hematemesis or coffee-ground emesis. She denies fevers or chills. She denies chest pain, shortness of breath, difficulty breathing. Patient is concerned that her appendix may be ruptured. - Related Data Home Medications Medication Instructions Recorded Confirmed Atomoxetine HCl [Strattera] 100 mg PO QAM 09/25/23 06/11/24 Naltrexone Microspheres [Vivitrol] 380 mg IM Q28D 09/25/23 06/11/24 Omeprazole 40 mg PO QAM 09/25/23 06/11/24 Sertraline [Zoloft] 200 mg PO HS 09/25/23 06/11/24 hydrOXYzine HCL [Atarax] 25 mg PO TID 09/25/23 06/11/24 traZODone HCL [Desyrel] 150 mg PO HS 09/25/23 06/11/24 ARIPiprazole 15 mg PO HS 05/05/24 06/11/24 Doxycycline [Vibramycin] 100 mg PO BID 05/05/24 06/11/24 Ondansetron [Zofran] 4 mg PO QAM 05/05/24 06/11/24 Sofosbuvir/Velpatasvir [Epclusa 400 mg PO HS 05/05/24 06/11/24 400 mg-100 mg Tablet] cloNIDine HCL 0.1 mg PO BID 05/05/24 06/11/24 Cyclobenzaprine [Flexeril] 10 mg PO TID PRN 06/11/24 cloNIDine HCL [cloNIDine HCL ER] 2 tab PO HS 06/11/24 Previous Rx's Medication Instructions Recorded Ibuprofen [Motrin] 800 mg PO TID PRN #90 tab 10/01/23 Allergies Allergy/AdvReac Type Severity Reaction Status Date / Time adhesive tape Allergy Itching Verified 06/11/24 10:16 and breakout at side of tape. Review of Systems ROS Statement: Those systems with pertinent positive or pertinent negative responses have been documented in the HPI. ROS Other: All systems not noted in ROS Statement are negative. Past Medical History Past Medical History: Asthma, GERD/Reflux, Hyperlipidemia, Hypertension, Skin Disorder Additional Past Medical History / Comment(s): Sinus Headaches, headaches, insomnia, ulcers, mental illiness, restless legs, hidradenitis suppurativa (HS) History of Any Multi-Drug Resistant Organisms: None Reported Past Surgical History: No Surgical Hx Reported Additional Past Surgical History / Comment(s): I&D to rt axilla Past Anesthesia/Blood Transfusion Reactions: No Reported Reaction Past Psychological History: ADD/ADHD, Anxiety, Bipolar, Depression Smoking Status: Current every day smoker Past Alcohol Use History: None Reported Past Drug Use History: Marijuana - Past Family History Mother Family Medical History: Asthma, Coronary Artery Disease (CAD), Hyperlipidemia, Hypertension, Rheumatoid Arthritis (RA) Additional Family Medical History / Comment(s): emphysema, anemia Father Family Medical History: Asthma, Coronary Artery Disease (CAD), Hypertension Additional Family Medical History / Comment(s): bronchitis, snoring General Exam Limitations: no limitations General appearance: alert, in no apparent distress Eye exam: Present: normal appearance, PERRL, EOMI. Absent: scleral icterus, conjunctival injection, periorbital swelling Neck exam: Present: normal inspection. Absent: tenderness, meningismus, lymphadenopathy Respiratory exam: Present: normal lung sounds bilaterally. Absent: respiratory distress, wheezes, rales, rhonchi, stridor Cardiovascular Exam: Present: regular rate, normal rhythm, normal heart sounds. Absent: systolic murmur, diastolic murmur, rubs, gallop, clicks GI/Abdominal exam: Present: soft, tenderness (to palpation of the right lower quadrant), normal bowel sounds. Absent: distended, guarding, rebound, rigid Extremities exam: Present: normal inspection, full ROM, normal capillary refill. Absent: tenderness, pedal edema, joint swelling, calf tenderness Back exam: Present: normal inspection Skin exam: Present: warm, dry, intact, normal color. Absent: rash Course Vital Signs 09/25/24 09/25/24 11:07 14:35 Temperature 97.6 F Pulse Rate 83 84 Respiratory 18 20 Rate Blood Pressure 147/89 132/81 O2 Sat by Pulse 99 98 Oximetry Medical Decision Making - Medical Decision Making Was pt. sent in by a medical professional or institution ([facility] Hassan, [employer], urgent care, hospital, or half-way...) When possible be specific @ -No Did you speak to anyone other than the patient for history (EMS, parent, family, police, friend...)? What history was obtained from this source @ -No Did you review nursing and triage notes (agree or disagree)? Why? @ -I reviewed and agree with nursing and triage notes Were old charts reviewed (outside hosp., previous admission, EMS record, old EKG, old radiological studies, urgent care reports/EKG's, half-way records)? Report findings @ -No old charts were reviewed Differential Diagnosis (chest pain, altered mental status, abdominal pain women, abdominal pain men, vaginal bleeding, weakness, fever, dyspnea, syncope, headache, dizziness, GI bleed, back pain, seizure, CVA, palpatations, mental health, musculoskeletal)? @ -Differential Abdominal Pain Women: Appendicitis, Cholecystitis, diverticulosis, ischemic bowel, pancreatitis, hepatitis, UTI, gastroenteritis, AAA, incarcerated hernia, bowel obstruction, constipation, inflammatory bowel, hepatitis, peptic ulcer disease, splenic infarction, perforated viscus, vulvitis, ovarian torsion, PID, kidney stone, placenta abruption, this is not meant to be an all-inclusive list EKG interpreted by me (3pts min.). @ -None X-rays interpreted by me (1pt min.). @ -None done CT interpreted by me (1pt min.). @ -CT of the abdomen pelvis with IV contrast revealing possible colitis involvi ng the ascending and descending colon with minimal surrounding fat stranding from an infectious/inflammatory etiology with no evidence of wall thickening or surrounding fluid collection, appendix is within normal limits U/S interpreted by me (1pt. min.). @ -None done What testing was considered but not performed or refused? (CT, X-rays, U/S, labs)? Why? @ -None What meds were considered but not given or refused? Why? @ -None Did you discuss the management of the patient with other professionals (professionals i.e. FRANCIA Hassan, [employer] GUIDE, lab, RT, psych nurse, social sciences department chair, chinese language professor, teacher, fire prevention officer, correctional casework specialist)? Give summary @ -No Was smoking cessation discussed for >3mins.? @ -No Was critical care preformed (if so, how long)? @ -No Were there social determinants of health that impacted care today? How? (Homelessness, low income, unemployed, alcoholism, drug addiction, transpor tation, low edu. Level, literacy, decrease access to med. care, senior care, rehab)? @ -No Was there de-escalation of care discussed even if they declined (Discuss DNR or withdrawal of care, Hospice)? DNR status @ -No What co-morbidities impacted this encounter? (DM, HTN, Smoking, COPD, CAD, Cancer, CVA, ARF, Chemo, Hep., AIDS, mental health diagnosis, sleep apnea, morbid obesity)? @ -None Was patient admitted / discharged? Hospital course, mention meds given and route, prescriptions, significant lab abnormalities, going to OR and other pertinent info. @ -Discharge. 49-year-old female with abdominal pain. On evaluation patient noted to be clenching her legs up into her abdomen. She is distantly had multiple episodes of emesis since arrival to the emergency department. Her vitals are stable. Abdominal examination remarkable for right lower quadrant tenderness to palpation, equal bowel sounds throughout all quadrants. There is no signs of rebound tenderness or rigidity. Patient is symptomatically treated with antiemetics and pain medication pending laboratory results and CT imaging. She is agree with this plan. CBC mild leukocytosis 11.2, CMP unremarkable, lactic acid nonelevated at 1.2, UA unremarkable. CT remarkable for possible colitis. Patient has had no episodes of emesis despite various antiemetic therapies. Patient was offered admission for intractable nausea and vomiting however she has declined at this time. Patient attempted to leave the emergency department without formal discharge however patient was advised to wait for discharge. All questions have been answered at bedside and strict return parameters kelly with the patient she is verbalized understanding. Case discussed in detail with my attending Dr. Gray Undiagnosed new problem with uncertain prognosis? @ -No Drug Therapy requiring intensive monitoring for toxicity (Heparin, Nitro, Insulin, Cardizem)? @ -No Were any procedures done? @ -No Diagnosis/symptom? @ -abdominal pain, nausea and vomiting Acute, or Chronic, or Acute on Chronic? @ -Acute Uncomplicated (without systemic symptoms) or Complicated (systemic symptoms)? @ -uncomplicated Side effects of treatment? @ -No Exacerbation, Progression, or Severe Exacerbation? @ -No Poses a threat to life or bodily function? How? (Chest pain, [place], [place], pneumonia, PE, COPD, DKA, ARF, appy, cholecystitis, CVA, Diverticulitis, Homicidal, Suicidal, threat to staff... and all critical care pts) @ -No - Lab Data Result diagrams: 09/25/24 11:31 09/25/24 11:31 Lab Results 09/25/24 09/25/24 09/25/24 Range/Units 11:31 11: 11:31 WBC 11.2 H (3.8-10.6) k/uL RBC 4.56 (3.80-5.40) m/uL Hgb 13.6 (11.4-16.0) gm/dL Hct 41.8 (34.0-46.0) % MCV 91.6 (80.0-100.0) fL MCH 29.8 (25.0-35.0) pg MCHC 32.5 (31.0-37.0) g/dL RDW 12.9 (11.5-15.5) % Plt Count 419 (150-450) k/uL MPV 7.6 Neutrophils % 73 % Lymphocytes % 19 % Monocytes % 4 % Eosinophils % 2 % Basophils % 0 % Neutrophils # 8.2 H (1.3-7.7) k/uL Lymphocytes # 2.2 (1.0-4.8) k/uL Monocytes # 0.5 (0-1.0) k/uL Eosinophils # 0.2 (0-0.7) k/uL Basophils # 0.0 (0-0.2) k/uL Sodium 141 (137-145) mmol/L Potassium 4.0 (3.5-5.1) mmol/L Chloride 105 (98-107) mmol/L Carbon Dioxide 30 (22-30) mmol/L Anion Gap 6 mmol/L BUN 11 (7-17) mg/dL Creatinine 0.85 (0.52-1.04) mg/dL Est GFR (CKD-EPI)AfAm >90 (>60 ml/min/1.73 sqM) Est GFR (CKD-EPI)NonAf 82 (>60 ml/min/1.73 sqM) Glucose 114 H (74-99) mg/dL Plasma Lactic Acid Moy 1.2 (0.7-2.0) mmol/L Calcium 10.4 H (8.4-10.2) mg/dL Total Bilirubin 0.6 (0.2-1.3) mg/dL AST 32 (14-36) U/L ALT 18 (4-34) U/L Alkaline Phosphatase 81 (38-126) U/L Total Protein 8.1 (6.3-8.2) g/dL Albumin 4.6 (3.5-5.0) g/dL Amylase 66 (30-110) U/L Lipase 76 (23-300) U/L Urine Color Urine Appearance (Clear) Urine pH (5.0-8.0) Ur Specific [place] (1.001-1.035) Urine Protein (Negative) Urine Glucose (UA) (Negative) Urine Ketones (Negative) Urine Blood (Negative) Urine Nitrite (Negative) Urine Bilirubin (Negative) Urine Urobilinogen (<2.0) mg/dL Ur Leukocyte Esterase (Negative) 09/25/24 Range/Units 12:33 WBC (3.8-10.6) k/uL RBC (3.80-5.40) m/uL Hgb (11.4-16.0) gm/dL Hct (34.0-46.0) % MCV (80.0-100.0) fL MCH (25.0-35.0) pg MCHC (31.0-37.0) g/dL RDW (11.5-15.5) % Plt Count (150-450) k/uL MPV Neutrophils % % Lymphocytes % % Monocytes % % Eosinophils % % Basophils % % Neutrophils # (1.3-7.7) k/uL Lymphocytes # (1.0-4.8) k/uL Monocytes # (0-1.0) k/uL Eosinophils # (0-0.7) k/uL Basophils # (0-0.2) k/uL Sodium (137-145) mmol/L Potassium (3.5-5.1) mmol/L Chloride (98-107) mmol/L Carbon Dioxide (22-30) mmol/L Anion Gap mmol/L BUN (7-17) mg/dL Creatinine (0.52-1.04) mg/dL Est GFR (CKD-EPI)AfAm (>60 ml/min/1.73 sqM) Est GFR (CKD-EPI)NonAf (>60 ml/min/1.73 sqM) Glucose (74-99) mg/dL Plasma Lactic Acid [place] (0.7-2.0) mmol/L Calcium (8.4-10.2) mg/dL Total Bilirubin (0.2-1.3) mg/dL AST (14-36) U/L ALT (4-34) U/L Alkaline Phosphatase (38-126) U/L Total Protein (6.3-8.2) g/dL Albumin (3.5-5.0) g/dL Amylase (30-110) U/L Lipase (23-300) U/L Urine Color Colorless Urine Appearance Clear (Clear) Urine pH 7.0 (5.0-8.0) Ur Specific [place] >1.050 H (1.001-1.035) Urine Protein Negative (Negative) Urine Glucose (UA) Negative (Negative) Urine Ketones Trace H (Negative) Urine Blood Negative (Negative) Urine Nitrite Negative (Negative) Urine Bilirubin Negative (Negative) Urine Urobilinogen <2.0 (<2.0) mg/dL Ur Leukocyte Esterase Negative (Negative) Disposition Clinical Impression: Colitis, Nausea and vomiting Disposition: HOME SELF-CARE Condition: Good Instructions (If sedation given, give patient instructions): Acute Nausea and Vomiting (ED) Additional Instructions: Please return to the Emergency Department if symptoms worsen or any other concerns. Is patient prescribed a controlled substance at d/c from ED?: No Referrals: Jameson Burnett MD [Primary Care Provider] - 1-2 days Time of Disposition: 14:26
[2024-09-25] MEDS: ONDANSETRON 4 MG/2 ML VIAL IVP STA (11:32)
[2024-09-25] MEDS: HYDROmorphone 0.5 MG/0.5 ML SYRINGE IVP STA (11:32)
[2024-09-25 11:42] LABS: Basophils % (A) 0 %; Eosinophils # (A) 0.2 k/uL (0-0.7); Eosinophils % (A) 2 %; HCT 41.8 % (34.0-46.0); HGB 13.6 gm/dL (11.4-16.0); Lymphocytes # (A) 2.2 k/uL (1.0-4.8); Lymphocytes % (A) 19 %; MCH 29.8 pg (25.0-35.0); MCHC 32.5 g/dL (31.0-37.0); MCV 91.6 fL (80.0-100.0); Mean Platelet Volume 7.6; Monocytes # (A) 0.5 k/uL (0-1.0); Monocytes % (A) 4 %; Neutrophils # (A) 8.2 k/uL (1.3-7.7); Neutrophils % (A) 73 %; Platelet Count 419 k/uL (150-450); RBC 4.56 m/uL (3.80-5.40); RDW 12.9 % (11.5-15.5); WBC 11.2 k/uL (3.8-10.6)
[2024-09-25 12:06] LABS: ALT 18 U/L (4-34); AST 32 U/L (14-36); African American GFR (CKD) >90 (>60 ml/min/1.73 sqM); Albumin 4.6 g/dL (3.5-5.0); Alkaline Phosphatase 81 U/L (38-126); Amylase 66 U/L (30-110); Anion Gap 6 mmol/L; Blood Urea Nitrogen 11 mg/dL (7-17); Calcium 10.4 mg/dL (8.4-10.2); Carbon Dioxide 30 mmol/L (22-30); Chloride 105 mmol/L (98-107); Glucose 114 mg/dL (74-99); Lipase 76 U/L (23-300); Non-African American GFR(CKD) 82 (>60 ml/min/1.73 sqM); Sodium 141 mmol/L (137-145); Total Bilirubin 0.6 mg/dL (0.2-1.3); Total Protein 8.1 g/dL (6.3-8.2)
--- NOTE | 2024-09-25 12:10 | CT ---
EXAMINATION TYPE: CT abdomen pelvis w con CT DLP: 797.6 mGycm, Automated exposure control for dose reduction was used. DATE OF EXAM: 09/25/2024 11:59 AM COMPARISON: Abdominal ultrasound 04/17/2024, CT abdomen and pelvis 09/28/2023 CLINICAL INDICATION:Female, 49 years old with history of RLQ ab pain, N/V/Chills; RLQ pain TECHNIQUE: Standard CT of the abdomen and pelvis following the administration of 100 cc of Isovue 3 00 IV contrast material. Coronal and sagittal reformats were performed. FINDINGS: LOWER CHEST: Minimal posterior dependent subsegmental atelectasis is noted. ABDOMEN LIVER: Unremarkable GALLBLADDER AND BILE DUCTS: Unremarkable. PANCREAS: Unremarkable. SPLEEN: Unremarkable. ADRENAL GLANDS: Unremarkable. KIDNEYS AND URETERS: No evidence of hydronephrosis or renal calculus. The kidneys enhance symmetrical ly. Contrast is demonstrated within both collecting systems on the delayed phase. Retroaortic left re nal vein. PELVIS BLADDER: Incompletely distended but grossly unremarkable. REPRODUCTIVE: Unremarkable. ABDOMEN & PELVIS STOMACH AND BOWEL: Stomach and duodenum are unremarkable. Subtle inflammatory fat stranding involving the ascending and descending colon without wall thickening suggested. No surrounding organized fluid collection. The appendix is within normal limits. No evidence of bowel obstruction. PERITONEUM: No evidence of pneumoperitoneum or free fluid. VASCULATURE: No evidence of aortic aneurysm. Left pelvic phlebolith. MUSCULOSKELETAL: No acute osseous abnormalities. Advanced degenerative disease at L5-S1 with disc spa ce narrowing, endplate sclerosis, vacuum disc disease, and osteophytosis. LYMPH NODES: No gross evidence for lymphadenopathy. SOFT TISSUE/ABDOMINAL WALL: Tiny fat filled umbilical hernia. Lateral gluteal posterior soft tissue h yperdense lesions with the largest on the left measuring 2.6 x 2.4 cm and largest on the right measur ing 4.0 x 1.7 cm. These are new from prior exam however there were other smaller lesions which have r esolved from prior exam. May represent hematomas. Likely benign. IMPRESSION: Possible colitis involving the ascending and descending colon with minimal surrounding fat stranding from an infectious/inflammatory etiology. No evidence of wall thickening or surrounding fluid collect ion. No other acute abnormality identified. The appendix is within normal limits. [facility], , 09/25/2024 12:08 PM
[2024-09-25] MEDS: METOCLOPRAMIDE 5 MG/ML 2 ML VIAL IVP STA (12:15)
[2024-09-25 13:06] LABS: Appearance,Urine Clear (Clear); Bilirubin,Urine Negative (Negative); Blood,Urine Negative (Negative); Color,Urine Colorless; Glucose,Urine (UA) Negative (Negative); Ketones,Urine Trace (Negative); Leukocyte Esterase,Urine Negative (Negative); Nitrite,Urine Negative (Negative); Protein,Urine Negative (Negative); Urobilinogen,Urine <2.0 mg/dL (<2.0)
[2024-09-25 13:07] LABS: Specific Gravity,Urine >1.050 (1.001-1.035)
[2024-09-25] MEDS: droPERidol 5 MG/2 ML VIAL IVP ONE (13:32)
[2024-09-25] MEDS: PANTOPRAZOLE 40 MG/10 ML VIAL IVP STA (13:33)
[2024-09-25 14:36] VITALS: BP 132/81; PULSE 84; RESP 20
== END 2024-09-25 14:36 | disposition home or self-care (01) ==
LOC: EC 11:01
CPT/HCPCS: 36415; 74177; 80053; 81003; 82150; 83605; 83690; 85025; 96374; 96375; 99284

== ENCOUNTER → 2025-02-08 | Outpatient (CLI) | payer OTHER ==
[2025-02-08 21:16] LABS: Basophils # (A) 0.09 X 10*3/uL (0.00-0.10); Basophils % (A) 0.8 %; Eosinophils # (A) 0.39 X 10*3/uL (0.04-0.35); Eosinophils % (A) 3.5 %; HCT 36.8 % (37.2-46.3); HGB 12.1 g/dL (12.0-15.0); Lymphocytes % (A) 39.8 %; MCH 29.3 pg (27.0-32.0); MCHC 32.9 g/dL (32.0-37.0); MCV 89.1 FL (80.0-97.0); Mean Platelet Volume 10.6 FL (9.5-12.2); Monocytes # (A) 0.79 X 10*3/uL (0.20-1.00); Monocytes % (A) 7.1 %; NRBC Per 100 WBC 0 X 10*3/uL (0.00-0.01); Neutrophils # (A) 5.36 X 10*3/uL (1.80-7.70); Neutrophils % (A) 48.5 %; Platelet Count 349 X 10*3/uL (140-440); RBC 4.13 X 10*6/uL (4.10-5.20); RDW 14.5 % (11.5-14.5); WBC 11.06 X 10*3/uL (4.50-10.00)
[2025-02-08 21:24] LABS: ALT 13 U/L (8-44); AST 20 U/L (13-35); Albumin 4.1 g/dL (3.8-4.9); Albumin/Globulin Ratio 1.37 Ratio (1.60-3.17); Alkaline Phosphatase 100 U/L (41-126); BUN/Creat Ratio 13.25 Ratio (12.00-20.00); Blood Urea Nitrogen 10.6 mg/dL (9.0-27.0); Calcium 9.3 mg/dL (8.7-10.3); Carbon Dioxide 27.4 mmol/L (21.6-31.8); Chloride 103 mmol/L (96-109); Glucose 94 mg/dL (70-110); Potassium 4.6 mmol/L (3.5-5.5); Sodium 141 mmol/L (135-145); Total Bilirubin <0.2 mg/dL (0.3-1.2); Total Protein 7.1 g/dL (6.2-8.2)
== END | disposition home or self-care (01) ==
LOC: LABWHC1 14:49
PROVIDERS: ATTEND Nurse Practitioner Family
DX: B18.2 Chronic viral hepatitis C (principal)
CPT/HCPCS: 36415; 80053; 85025

== ENCOUNTER 2025-02-15 19:47 | Outpatient (CLI) | payer OTHER ==
--- NOTE | 2025-03-19 09:33 | P.PCN ---
Date of Procedure: 02/15/25 Operative Findings: 48-year-old female with chronic fatigue and daytime sleepiness for many years. He has a recovering alcoholic and she has been alcohol free for the past 1 year. Prior to that, she used to drink excessively. Told that has used methamphetamine for many years and she is currently drug-free. She smokes approximately 3 joints of marijuana on daily basis. This helps her with her chronic anxiety and pain. Is known to have chronic anxiety/depression/bipolar disorder. Hydroxyzine 25 mg 3 times daily, Zoloft 100 mg p.o. daily and Abilify 10 mg p.o. daily. She was diagnosed also having ADHD started on Strattera by her primary care physician. Is currently taking Strattera 60 mg p.o. daily. She has also sleep disturbance and difficulties initiating sleep. She has been maintained on trazodone 150 mg at bedtime. She suffers from chronic pain, maintained on a combination of Motrin and Flexeril. She has chronic body aches and back pain. She has also hidradenitis suppurativa and she had a recent hospitalization for an infected axillary abscess requiring incision and drainage and IV antibiotics. In terms of her sleep, the patient is sleeps excessivly and despite that she does not get the adequate refreshment. She goes to bed at around 11:30 PM and she wakes up 8 to 9 AM in the morning. She wakes up few times in the middle of the night to urinate. She is restless in her sleep. She tosses and turns and she will occasionally talks few sentences. She does grind her teeth. According to the partner, she has history of snoring. Apneas have been noted on those days when she feels excessively fatigued and tired. No sleep paralysis. No hallucinations. No cataplexy. Her current Adams score is at 10. No nighttime chest pain or heartburn. She has chronic cough, chest congestion and exertional dyspnea. She smokes 1/2 pack of cigarettes a day. She drinks coffee in the morning and she also relies on energy drinks including red bull. No significant weight gain over the years. Her weight has been up by around 10 pounds over the past 5 to 10 years. Pertinent physical findings Weight is 167 pounds with a BMI of 28.7 Technical description The patient was studied using a standard complex polysomnography protocol that included recording of the Lead II EKG, Central, occipital and frontal EEG, right and left outer canthus EOG, submental EMG, right and left anterior tibialis EMG, respiratory airflow by thermocouple and or pressure/flow transducer, respiratory efforts by abdominal and thoracic PVDF belts, oxygen saturation by cable oximetry. Position by observation synchronized the PSG. Equipment used: [employer]. Sleep architecture The total recording time was 365 minutes. The total sleep time was 335.0 minutes. The wake after sleep onset time was 10.5 minutes. Overall sleep efficiency was 91.8%. The latency to sleep onset was 19 minutes. The latency to REM sleep was 290 minutes. The sleep architecture was characterized by 4.2% stage I, 79.4% stage II, 0.1% stage III and a total of 16.8% REM sleep. The total arousal index was 3.6. Respiratory analysis Respiratory analysis demonstrated no obstructive apneas, no obstructive hypopneas, no central apneas. AHI was 0. No significant nocturnal oxygen desaturations Sleep continuity summary Patient had total of 20 arousals with an arousal index of 3.6 Periodic limb movements No periodic limb movement identified Cardiac summary Average heart rate was 91 with a minimum heart rate of 83 and a maximum heart rate of 98 Assessment Chronic fatigue/sleepiness with an Adams score of 10. The sleep study was within normal limits. Normal sleep efficiency. Normal sleep architecture. Normal sleep maintenance. No evidence of any sleep breathing disorder. Regular movement activity. She is known to have multiple comorbidities. Of significance is her history of polysubstance abuse which included alcoholism and methamphetamine abuse for many years and the patient has been clean for the past 1 year. She continues to smoke marijuana. She is a chronic smoker. She also has issues with increased anxiety and depression and bipolar disorder and she is on a combination of medications treating her anxiety and depression and she takes trazodone overnight for sleep induction and maintenance. Chronic anxiety/depression History of bipolar disorder Hidradenitis suppurativa Hypertension Chronic back pain History of ADHD and currently the patient on Strattera 60 mg p.o. daily History of polysubstance abuse including history of alcoholism and methamphetamine abuse. Plan Patient will be reassured and the results of the sleep study Continue same medications Implement good sleep hygiene measures No need for any further treatment as the patient sleep quality is adequate at this point Follow-up with a primary care physician.
== END 2025-02-16 05:20 | disposition home or self-care (01) ==
LOC: 3 N SLEEP 19:47
PROVIDERS: ATTEND Internal Medicine Critical Care Medicine
DX: G47.33 Obstructive sleep apnea (adult) (pediatric) (principal); I10 Essential (primary) hypertension; G89.29 Other chronic pain; F41.9 Anxiety disorder, unspecified; F31.9 Bipolar disorder, unspecified; L73.2 Hidradenitis suppurativa; R53.82 Chronic fatigue, unspecified; F19.20 Other psychoactive substance dependence, uncomplicated; F17.200 Nicotine dependence, unspecified, uncomplicated; F90.9 Attention-deficit hyperactivity disorder, unspecified type; Z91.048 Other nonmedicinal substance allergy status; Z86.59 Personal history of other mental and behavioral disorders; Z79.899 Other long term (current) drug therapy
CPT/HCPCS: 95810

== ENCOUNTER → 2025-03-05 | Outpatient (CLI) | payer OTHER ==
--- NOTE | 2025-03-05 11:42 | CT ---
EXAMINATION TYPE: CT angio lower extremity RT DATE OF EXAM: 03/05/2025 9:00 AM COMPARISON: None CLINICAL INDICATION: Female, 49 years old with history of I73.9 right leg claudication PERIPHERAL VAS CULAR D; PHH, RIGHT LEG PAIN, NUMBNESS, TINGLING X 1 YEAR TECHNIQUE: CT of the right lower extremity after IV contrast. Coronal and sagittal reconstructions pe rformed. 3-D reconstructions generated on a dedicated independent workstation. Contrast used:100 ml mL of Isovue [address] DLP: 688 mGycm, Automated exposure control for dose reduction was used. FINDINGS: Mild atherosclerotic calcification and plaque within the bilateral proximal common iliac ar teries. Areas of nodular soft tissue density within the subcutaneous adipose layer overlying the gluteal surjit ons may relate to subcutaneous injections. Clinically correlate. Severe degenerative disc disease L5-S1. Mild atherosclerotic narrowing proximal SFA. PFA is patent. The remainder of the SFA stenting. The popliteal artery is patent. Normal takeoff of the anterior tibial artery. The trifurcation vessels are patent. Normal three-vessel runoff into the foot. Incidental small to moderate right knee joint effusion. IMPRESSION: 1. Mild atherosclerotic changes proximal common iliac arteries and also at the right [employer] bifurcation. No significant arterial stenosis identified in the right lower extremity. 2. Nonspecific small to moderate right knee joint effusion. 3. Nodular soft tissue in the subcutaneous fat layer overlying the gluteal regions may relate to subc utaneous injections. Clinically correlate. [facility], , 03/05/2025 11:39 AM
== END | disposition home or self-care (01) ==
LOC: RADCTMAIN 08:04
PROVIDERS: ATTEND Internal Medicine
DX: I73.9 Peripheral vascular disease, unspecified (principal); M25.461 Effusion, right knee; M79.89 Other specified soft tissue disorders
CPT/HCPCS: 73706; Q9967

== ENCOUNTER → 2025-04-07 | Outpatient (CLI) | payer OTHER ==
--- NOTE | 2025-04-07 09:55 | MR ---
EXAMINATION TYPE: MR knee RT wo con DATE OF EXAM: 04/07/2025 COMPARISON: CTA right lower extremity 03/21/2025 HISTORY: Right knee medial pain with locking and swelling, injured while running 2 mos. ago. TECHNIQUE: Multiplanar, multisequence images of the knee is performed without IV contrast. FINDINGS: MEDIAL MENISCUS: Anterior and posterior horns are intact without tear. LATERAL MENISCUS: Anterior and posterior horns are intact without tear. CRUCIATE LIGAMENTS: The posterior cruciate ligament is intact and unremarkable. Full-thickness tear o f the anterior cruciate ligament with only distal portion identified. COLLATERAL LIGAMENTS: The medial collateral ligament and lateral collateral ligament complex are inta ct and unremarkable. EXTENSOR MECHANISM: Visualized quadriceps and patellar tendons are intact. EFFUSION: Moderate to large size suprapatellar joint effusion. POPLITEAL CYST: Small to tiny popliteal/arredondo cyst. TRICOMPARTMENT SPACES: Kozv-mo-lbaoxicz tricompartmental joint space loss and spurring. CARTILAGE: Tricompartmental articular cartilage is preserved. BONE MARROW SIGNAL: Linear diminished T1 signal posterior aspect of the medial tibial plateau with amezquita rrounding T2 hyperintensity extending to the tibial condyles. Sagittal image 12 and coronal image 29. OTHER: No additional significant abnormality is appreciated. IMPRESSION: 1. Nondisplaced insufficiency fracture posterior medial aspect medial tibial plateau with surrounding osseous contusion injury. 2. Moderate to large-sized suprapatellar joint effusion. 3. Complete ACL tear. 4. [id number] tricompartmental degenerative changes are present as detailed above. 5. Tiny popliteal cyst. [facility], Workstation: [address], 04/07/2025 9:52 AM
== END | disposition home or self-care (01) ==
LOC: RADMRIMAIN 09:11
PROVIDERS: ATTEND Orthopaedic Surgery
DX: S82.134A Nondisplaced fracture of medial condyle of right tibia, initial encounter for closed fracture (principal); M17.11 Unilateral primary osteoarthritis, right knee; S80.01XA Contusion of right knee, initial encounter; M25.461 Effusion, right knee; M71.21 Synovial cyst of popliteal space [Baker], right knee; Y93.02 Activity, running

== ENCOUNTER → 2025-05-10 | Outpatient (CLI) | payer OTHER ==
[2025-05-10 15:08] LABS: HCT 37.1 % (37.2-46.3); HGB 11.9 g/dL (12.0-15.0); MCH 28.6 pg (27.0-32.0); MCHC 32.1 g/dL (32.0-37.0); MCV 89.2 FL (80.0-97.0); Mean Platelet Volume 10.4 FL (9.5-12.2); NRBC Per 100 WBC 0 X 10*3/uL (0.00-0.01); Platelet Count 398 X 10*3/uL (140-440); RBC 4.16 X 10*6/uL (4.10-5.20); RDW 15.2 % (11.5-14.5); WBC 9.93 X 10*3/uL (4.50-10.00)
[2025-05-10 16:09] LABS: NT-Pro-B-Type Natriuretic Pept 57 pg/mL (0-125)
[2025-05-10 16:20] LABS: BUN/Creat Ratio 13.62 Ratio (12.00-20.00); Blood Urea Nitrogen 10.9 mg/dL (9.0-27.0); Carbon Dioxide 25.5 mmol/L (21.6-31.8); Chloride 104 mmol/L (96-109); Chol/HDL Ratio 3.91 Ratio; Glucose 106 mg/dL (70-110); LDL Cholesterol,Calculated 154.2 mg/dL (0.0-131.0); Potassium 4.6 mmol/L (3.5-5.5); Sodium 140 mmol/L (135-145)
[2025-05-10 16:21] LABS: ALT 20 U/L (8-44); AST 38 U/L (13-35); Alkaline Phosphatase 99 U/L (41-126); Calcium 8.9 mg/dL (8.7-10.3); Globulin 2.5 g/dL (1.6-3.3); Total Bilirubin <0.2 mg/dL (0.3-1.2); Total Protein 6.5 g/dL (6.2-8.2)
== END | disposition home or self-care (01) ==
LOC: LABWHC1 08:08
PROVIDERS: ATTEND Student in an Organized Health Care Education/Training Program
DX: I50.9 Heart failure, unspecified (principal); E11.9 Type 2 diabetes mellitus without complications; E78.5 Hyperlipidemia, unspecified; E03.9 Hypothyroidism, unspecified; D72.9 Disorder of white blood cells, unspecified; R79.89 Other specified abnormal findings of blood chemistry
CPT/HCPCS: 36415; 80053; 80061; 83036; 83880; 84443; 85027

== ENCOUNTER → 2025-06-17 | Outpatient (CLI) | payer OTHER ==
[2025-06-17 19:15] LABS: Basophils # (A) 0.06 X 10*3/uL (0.00-0.10); Basophils % (A) 0.7 %; Eosinophils # (A) 0.27 X 10*3/uL (0.04-0.35); Eosinophils % (A) 2.9 %; HCT 36.2 % (37.2-46.3); HGB 11.8 g/dL (12.0-15.0); Immature Grans, Automated 0.30 %; Lymphocytes # (A) 3.95 X 10*3/uL (0.90-5.00); Lymphocytes % (A) 42.9 %; MCH 28.5 pg (27.0-32.0); MCHC 32.6 g/dL (32.0-37.0); MCV 87.4 FL (80.0-97.0); Monocytes # (A) 0.67 X 10*3/uL (0.20-1.00); Monocytes % (A) 7.3 %; NRBC Per 100 WBC 0 X 10*3/uL (0.00-0.01); Neutrophils # (A) 4.23 X 10*3/uL (1.80-7.70); Neutrophils % (A) 45.9 %; Platelet Count 381 X 10*3/uL (140-440); RBC 4.14 X 10*6/uL (4.10-5.20); RDW 14.8 % (11.5-14.5); WBC 9.21 X 10*3/uL (4.50-10.00)
[2025-06-17 21:06] LABS: NT-Pro-B-Type Natriuretic Pept 106 pg/mL (0-125)
[2025-06-17 21:13] LABS: ALT 13 U/L (8-44); AST 19 U/L (13-35); Albumin 4.1 g/dL (3.8-4.9); Albumin/Globulin Ratio 1.52 Ratio (1.60-3.17); Alkaline Phosphatase 101 U/L (41-126); Anion Gap 11.90 mmol/L (4.00-12.00); BUN/Creat Ratio 15.22 Ratio (12.00-20.00); Blood Urea Nitrogen 13.7 mg/dL (9.0-27.0); Calcium 9.2 mg/dL (8.7-10.3); Carbon Dioxide 26.1 mmol/L (21.6-31.8); Chloride 105 mmol/L (96-109); Cholesterol 168.00 mg/dL (0.00-200.00); Globulin 2.7 g/dL (1.6-3.3); Glucose 99 mg/dL (70-110); HDL Cholesterol 61.20 mg/dL (40.00-60.00); LDL Cholesterol,Calculated 88.6 mg/dL (0.0-131.0); Potassium 4.9 mmol/L (3.5-5.5); Sodium 143 mmol/L (135-145); Total Protein 6.8 g/dL (6.2-8.2); Triglycerides 90.80 mg/dL (0.00-149.00); VLDL Calculation 18.16 mg/dL (5.00-40.00)
== END | disposition home or self-care (01) ==
LOC: LABWHC1 12:29
PROVIDERS: ATTEND Student in an Organized Health Care Education/Training Program
DX: B18.2 Chronic viral hepatitis C (principal); I50.9 Heart failure, unspecified; E11.22 Type 2 diabetes mellitus with diabetic chronic kidney disease; N18.9 Chronic kidney disease, unspecified; D63.1 Anemia in chronic kidney disease; E03.9 Hypothyroidism, unspecified
CPT/HCPCS: 36415; 80053; 80061; 83036; 83880; 84443; 85025; 87522